=== PATIENT | female | born 1950 | race Caucasian/White ===

== ENCOUNTER 2020-02-16 11:43 | Outpatient (REF) | payer OTHER, SELFPAY ==
[2020-02-16 12:39] LABS: MANUAL DIFF FLAG NO
[2020-02-16 12:50] LABS: Basophils Absolute Auto 0.1 X10*3/uL (0.0-0.2); Eosinophils Absolute Auto 0.2 X10*3/uL (0.0-0.4); Eosinophils Percent Auto 4.3 % (0-4); Hematocrit 38.1 % (37-47); Hemoglobin 13.1 g/dl (12.0-16.0); Imm Gran Abs Auto 0.01 X10*3/uL (0.00-0.03); Imm Gran Pct Auto 0.2 % (0.0-0.4); Lymphocytes Absolute Auto 1.7 X10*3/uL (1.2-4.9); Lymphocytes Percent Auto 32.6 % (20-40); Mean Corpuscular HGB Conc 34.4 g/dl (31.0-35.0); Mean Corpuscular Hemoglobin 32.3 pg (27.0-33.0); Mean Corpuscular Volume 94.1 fL (80-98); Mean Platelet Volume 9.7 fL (9.4-12.3); Monocytes Absolute Auto 0.4 X10*3/uL (0.1-1.2); Neutrophils Absolute Auto 2.8 X10*3/uL (2.0-8.3); Neutrophils Percent Auto 54.9 % (45-73); Platelet Count 237 X10*3/uL (160-400); Red Blood Count 4.05 X10*6/uL (4.20-5.50); Red Cell Distribution Width 12.2 % (11.0-16.0); White Blood Count 5.1 X10*3/uL (4.8-10.8)
[2020-02-16 13:05] LABS: Alanine Aminotransferase 31 U/L (0-31); Albumin Level 4.2 g/dL (3.5-5.0); Alkaline Phosphatase 67 U/L (39-117); Anion Gap 10 (12-20); Aspartate Amino Transferase 26 U/L (5-31); Bilirubin Total 0.9 mg/dL (0.0-1.0); Blood Urea Nitrogen 12 mg/dL (9-16); Calcium 8.9 mg/dL (8.4-10.2); Carbon Dioxide 29 mmol/L (22-29); Chloride 105 mmol/L (96-108); Cholesterol 147 mg/dL; Estimated Glomerular Filt Rate > 60; Glucose Fasting 92 mg/dL (60-99); HDL Cholesterol 44 mg/dL; LDL Cholesterol Calculated 88 mg/dl; Potassium 4.4 mmol/l (3.3-5.1); Sodium 140 mmol/L (135-145); Total Protein 6.6 g/dL (6.5-8.0); Triglycerides 79 mg/dL
[2020-02-16 13:18] LABS: Glucose Urine UA NEG (NEG); Leukocyte Esterase Urine NEG (NEG); Nitrite Urine NEG (NEG); PH 6.5 (5.0-8.0); Urine Blood NEG (NEG); Urine Ketones NEG (NEG); Urine Protein NEG (NEG-TRACE)
[2020-02-16 13:19] LABS: Appearance Urine HAZY; Color Urine YELLOW
[2020-02-16 13:21] LABS: Free T4 (Free Thyroxine) 0.95 ng/dL (0.71-1.85); Thyroid Stimulating Hormone 0.08 uIU/mL (0.32-4.0)
[2020-02-16 13:35] LABS: Bacteria Urine 4+ /LPF; RBC Urine 0 /HPF (0); Squamous Epithelial Cell Urine 3+ /LPF; WBC Urine 0-2 /HPF (0-4)
[2020-02-16 13:46] LABS: Folate 3.8 ng/mL (> or = 4.0); Vitamin B12 820 pg/mL (200-900)
== END 2020-02-16 11:44 | disposition home or self-care (01) ==
LOC: HO.LAB 11:43
PROVIDERS: PCP Internal Medicine; Visit Provider Internal Medicine
DX: E78.00 Pure hypercholesterolemia, unspecified (principal); I10 Essential (primary) hypertension; R73.01 Impaired fasting glucose; E03.9 Hypothyroidism, unspecified; D51.0 Vitamin B12 deficiency anemia due to intrinsic factor deficiency
CPT/HCPCS: 36415; 80053; 80061; 81001; 82607; 82746; 84439; 84443; 85025

== ENCOUNTER 2020-06-12 09:28 | Outpatient (REF) | payer OTHER, SELFPAY ==
[2020-06-12 10:22] LABS: MANUAL DIFF FLAG NO
[2020-06-12 10:37] LABS: Basophils Absolute Auto 0.1 X10*3/uL (0.0-0.2); Basophils Percent Auto 1.2 % (0-2); Eosinophils Absolute Auto 0.3 X10*3/uL (0.0-0.4); Eosinophils Percent Auto 6.6 % (0-4); Hematocrit 39.6 % (37-47); Hemoglobin 13.8 g/dl (12.0-16.0); Imm Gran Abs Auto 0.01 X10*3/uL (0.00-0.03); Imm Gran Pct Auto 0.2 % (0.0-0.4); Lymphocytes Absolute Auto 1.6 X10*3/uL (1.2-4.9); Lymphocytes Percent Auto 30.7 % (20-40); Mean Corpuscular HGB Conc 34.8 g/dl (31.0-35.0); Mean Corpuscular Hemoglobin 32.4 pg (27.0-33.0); Mean Platelet Volume 9.8 fL (9.4-12.3); Monocytes Absolute Auto 0.3 X10*3/uL (0.1-1.2); Monocytes Percent Auto 6.6 % (2-11); Neutrophils Absolute Auto 2.8 X10*3/uL (2.0-8.3); Neutrophils Percent Auto 54.7 % (45-73); Platelet Count 225 X10*3/uL (160-400); Red Blood Count 4.26 X10*6/uL (4.20-5.50); Red Cell Distribution Width 12.5 % (11.0-16.0); White Blood Count 5.1 X10*3/uL (4.8-10.8)
[2020-06-12 11:12] LABS: Alanine Aminotransferase 24 U/L (0-31); Albumin Level 4.3 g/dL (3.5-5.0); Alkaline Phosphatase 74 U/L (39-117); Anion Gap 12 (12-20); Aspartate Amino Transferase 18 U/L (5-31); Bilirubin Total 0.6 mg/dL (0.0-1.0); Blood Urea Nitrogen 13 mg/dL (9-16); Calcium 9.2 mg/dL (8.4-10.2); Carbon Dioxide 29 mmol/L (22-29); Chloride 106 mmol/L (96-108); Cholesterol 153 mg/dL; Estimated Glomerular Filt Rate > 60; Glucose Fasting 95 mg/dL (60-99); HDL Cholesterol 41 mg/dL; LDL Cholesterol Calculated 94 mg/dl; Potassium 4.4 mmol/L (3.3-5.1); Sodium 143 mmol/L (135-145); Total Protein 6.7 g/dL (6.5-8.0); Triglycerides 93 mg/dL
[2020-06-12 11:24] LABS: Free T4 (Free Thyroxine) 1.07 ng/dL (0.71-1.85); Thyroid Stimulating Hormone 0.01 uIU/mL (0.32-4.0); Vitamin D 25-OH Total 26.9 ng/mL (>30)
[2020-06-12 11:54] LABS: Folate 3.6 ng/mL (> or = 4.0); Vitamin B12 584 pg/mL (200-900)
[2020-06-13 05:07] LABS: Triiodothyronine T3 Total 122 ng/dL (76-181)
== END 2020-06-12 09:29 | disposition home or self-care (01) ==
LOC: HO.LAB 09:28
PROVIDERS: PCP Internal Medicine; Visit Provider Internal Medicine
DX: I10 Essential (primary) hypertension (principal); D51.0 Vitamin B12 deficiency anemia due to intrinsic factor deficiency; E78.00 Pure hypercholesterolemia, unspecified; R73.01 Impaired fasting glucose; E03.9 Hypothyroidism, unspecified; E55.9 Vitamin D deficiency, unspecified
CPT/HCPCS: 36415; 80053; 80061; 82306; 82607; 82746; 84439; 84443; 84480; 85025

== ENCOUNTER 2020-10-15 08:33 | Outpatient (REF) | payer OTHER, SELFPAY ==
[2020-10-15 09:14] LABS: MANUAL DIFF FLAG NO
[2020-10-15 09:15] LABS: Basophils Absolute Auto 0.1 X10*3/uL (0.0-0.2); Basophils Percent Auto 0.9 % (0-2); Eosinophils Absolute Auto 0.3 X10*3/uL (0.0-0.4); Eosinophils Percent Auto 5.8 % (0-4); Hematocrit 38.9 % (37-47); Hemoglobin 13.8 g/dl (12.0-16.0); Imm Gran Abs Auto 0.01 X10*3/uL (0.00-0.03); Imm Gran Pct Auto 0.2 % (0.0-0.4); Lymphocytes Absolute Auto 1.7 X10*3/uL (1.2-4.9); Lymphocytes Percent Auto 28.7 % (20-40); Mean Corpuscular HGB Conc 35.5 g/dl (31.0-35.0); Mean Corpuscular Hemoglobin 32.5 pg (27.0-33.0); Mean Corpuscular Volume 91.7 fL (80-98); Mean Platelet Volume 9.4 fL (9.4-12.3); Monocytes Absolute Auto 0.4 X10*3/uL (0.1-1.2); Monocytes Percent Auto 6.3 % (2-11); Neutrophils Absolute Auto 3.4 X10*3/uL (2.0-8.3); Neutrophils Percent Auto 58.1 % (45-73); Platelet Count 212 X10*3/uL (160-400); Red Blood Count 4.24 X10*6/uL (4.20-5.50); Red Cell Distribution Width 12.4 % (11.0-16.0); White Blood Count 5.9 X10*3/uL (4.8-10.8)
[2020-10-15 09:28] LABS: Estimated Average Glucose 108 mg/dL; Hemoglobin A1c % 5.4 %
[2020-10-15 10:28] LABS: Glucose Urine UA NEG (NEG); Leukocyte Esterase Urine 1+ (NEG); Nitrite Urine NEG (NEG); UACC Culture Trigger YES; Urine Blood NEG (NEG); Urine Ketones NEG (NEG); Urine Protein NEG (NEG-TRACE)
[2020-10-15 10:37] LABS: Appearance Urine HAZY; Color Urine YELLOW
[2020-10-15 11:04] LABS: Alanine Aminotransferase 19 U/L (0-31); Albumin Level 4.3 g/dL (3.5-5.0); Alkaline Phosphatase 73 U/L (39-117); Anion Gap 12 (12-20); Aspartate Amino Transferase 18 U/L (5-31); Bilirubin Total 0.8 mg/dL (0.0-1.0); Blood Urea Nitrogen 9 mg/dL (9-16); Calcium 9.4 mg/dL (8.4-10.2); Carbon Dioxide 28 mmol/L (22-29); Chloride 106 mmol/L (96-108); Cholesterol 130 mg/dL; Estimated Glomerular Filt Rate > 60; Glucose Fasting 98 mg/dL (60-99); HDL Cholesterol 37 mg/dL; LDL Cholesterol Calculated 77 mg/dl; Potassium 4.1 mmol/L (3.3-5.1); Sodium 142 mmol/L (135-145); Total Protein 6.7 g/dL (6.5-8.0); Triglycerides 83 mg/dL
[2020-10-15 11:18] LABS: Bacteria Urine 2+ /LPF; RBC Urine 0-2 /HPF (0); Squamous Epithelial Cell Urine TRACE /LPF
[2020-10-15 11:19] LABS: Renal Epithelial Cells Urine TRACE /LPF
[2020-10-15 11:28] LABS: Free T4 (Free Thyroxine) 1.28 ng/dL (0.71-1.85); Thyroid Stimulating Hormone 0.01 uIU/mL (0.32-4.0); Vitamin D 25-OH Total 33.5 ng/mL (>30)
== END 2020-10-15 08:34 | disposition home or self-care (01) ==
LOC: HO.LAB 08:33
PROVIDERS: PCP Internal Medicine; Visit Provider Internal Medicine
DX: I10 Essential (primary) hypertension (principal); E78.00 Pure hypercholesterolemia, unspecified; E03.9 Hypothyroidism, unspecified; E11.9 Type 2 diabetes mellitus without complications; E55.9 Vitamin D deficiency, unspecified
CPT/HCPCS: 36415; 80053; 80061; 81001; 82306; 83036; 84439; 84443; 85025; 87086

== ENCOUNTER 2021-02-14 10:10 | Outpatient (REF) | payer OTHER, SELFPAY ==
[2021-02-14 10:23] LABS: MANUAL DIFF FLAG NO
[2021-02-14 10:42] LABS: Basophils Percent Auto 0.8 % (0-2); Eosinophils Absolute Auto 0.2 X10*3/uL (0.0-0.4); Eosinophils Percent Auto 4.5 % (0-4); Hematocrit 37.7 % (37.0-47.0); Imm Gran Abs Auto 0.01 X10*3/uL (0.00-0.03); Imm Gran Pct Auto 0.2 % (0.0-0.4); Lymphocytes Absolute Auto 1.6 X10*3/uL (1.2-4.9); Lymphocytes Percent Auto 32.3 % (20-40); Mean Corpuscular HGB Conc 34.5 g/dl (31.0-35.0); Mean Corpuscular Hemoglobin 32.2 pg (27.0-33.0); Mean Corpuscular Volume 93.3 fL (80.0-98.0); Mean Platelet Volume 9.6 fL (9.4-12.3); Monocytes Absolute Auto 0.3 X10*3/uL (0.1-1.2); Monocytes Percent Auto 6.5 % (2-11); Neutrophils Absolute Auto 2.8 x10*3/uL (2.0-8.3); Neutrophils Percent Auto 55.7 % (45-73); Platelet Count 198 X10*3/uL (160-400); Red Blood Count 4.04 X10*6/uL (4.20-5.50); Red Cell Distribution Width 12.4 % (11.0-16.0); White Blood Count 5.1 X10*3/uL (4.8-10.8)
[2021-02-14 10:51] LABS: Estimated Average Glucose 105 mg/dL; Hemoglobin A1C 116.7372 umol/L; Hemoglobin A1c % 5.3 %
[2021-02-14 11:18] LABS: Alanine Aminotransferase 28 U/L (0-31); Albumin Level 4.2 g/dL (3.5-5.0); Alkaline Phosphatase 72 U/L (39-117); Anion Gap 10 (12-20); Aspartate Amino Transferase 24 U/L (5-31); Bilirubin Total 0.6 mg/dL (0.0-1.0); Blood Urea Nitrogen 12 mg/dL (9-16); Calcium 9.2 mg/dL (8.4-10.2); Carbon Dioxide 28 mmol/L (22-29); Chloride 109 mmol/L (96-108); Cholesterol 132 mg/dL; Estimated Glomerular Filt Rate > 60; Glucose Fasting 99 mg/dL (60-99); HDL Cholesterol 38 mg/dL; LDL Cholesterol Calculated 83 mg/dl; Potassium 4.2 mmol/L (3.3-5.1); Sodium 143 mmol/L (135-145); Total Protein 6.5 g/dL (6.5-8.0); Triglycerides 59 mg/dL
[2021-02-14 11:38] LABS: Free T4 (Free Thyroxine) 1.04 ng/dL (0.71-1.85); Thyroid Stimulating Hormone 0.01 uIU/mL (0.32-4.0); Vitamin D 25-OH Total 34.3 ng/mL (>30)
[2021-02-14 12:21] LABS: Folate 5.6 ng/mL (> or = 4.0)
[2021-02-14 14:10] LABS: Vitamin B12 772 pg/mL (200-900)
[2021-02-14 14:42] LABS: Appearance Urine CLEAR; Color Urine YELLOW; Glucose Urine UA NEG (NEG); Leukocyte Esterase Urine 1+ (NEG); Nitrite Urine NEG (NEG); Specific Gravity - Urine 1.015 (1.005-1.025); UACC Culture Trigger YES; Urine Blood NEG (NEG); Urine Ketones NEG (NEG); Urine Protein NEG (NEG-TRACE)
[2021-02-14 14:50] LABS: RBC Urine 0 /HPF (0); Squamous Epithelial Cell Urine 1+ /LPF
== END 2021-02-14 10:11 | disposition home or self-care (01) ==
LOC: HO.LAB 10:10
PROVIDERS: PCP Internal Medicine; Visit Provider Internal Medicine
DX: E03.9 Hypothyroidism, unspecified (principal); E55.9 Vitamin D deficiency, unspecified; I10 Essential (primary) hypertension; R73.01 Impaired fasting glucose; D51.0 Vitamin B12 deficiency anemia due to intrinsic factor deficiency; E78.00 Pure hypercholesterolemia, unspecified
CPT/HCPCS: 36415; 80053; 80061; 81001; 81003; 82306; 82607; 82746; 83036; 84439; 84443; 85025; 87086

== ENCOUNTER 2021-03-22 07:50 | Outpatient (REF) | payer OTHER, SELFPAY ==
--- NOTE | ~2021-03-22 | MM_ITS ---
EXAMINATION: MM SCREENING DIGITAL BREAST TOMOSYNTHESIS, BILATERAL CLINICAL INFORMATION: Screening. Asymptomatic. The lifetime risk of breast cancer based on the Tyrer-Cuzick Model is 6%. COMPARISON: Mammography: 01/28/2019, 12/24/2015, 08/02/2014 TECHNIQUE: Digital breast tomosynthesis is performed in both the craniocaudal and mediolateral oblique views along with computer-aided detection (CAD). Synthesized 2D images are generated from the tomosynthesis. FINDINGS: There are scattered areas of fibroglandular density (ACR BI-RADS breast composition Category b). There are no significant masses, abnormal calcifications, or other abnormalities. Parenchymal pattern is similar to prior studies. There is no developing density or architectural abnormality. The axilla and skin contours are unremarkable. No significant changes. MM/MM tomosynthesis screening BI IMPRESSION: No mammographic evidence of malignancy. ASSESSMENT: BI-RADS 1: Negative RECOMMENDATION: Routine annual mammography screening. This patient's information was entered into a reminder system with a target due date for their next mammogram.
--- NOTE | ~2021-03-22 | MM_ITS ---
EXAMINATION: BONE DENSITOMETRY CLINICAL INDICATION: Menopause. COMPARISON: Previous BD dated 11/24/2017 and baseline BD dated 04/05/2009. TECHNIQUE: Using a Siriona DXA System (software version: 13.1) manufactured by [employer], dual-energy x-ray absorptiometry was performed of the lumbar spine and left hip. The images are of good technical quality. Summary results are attached. FINDINGS: AP SPINE L1-L4: Current: BMD 0.897 g/cm2, Z-score -0.5, T-score -2.4, osteopenia, 7.9% decrease from previous, 8.2% decrease from baseline (<5% change is not significant). Prior: BMD 0.974 g/cm2. Baseline: BMD 0.977 g/cm2. LEFT FEMUR, NECK: Current: BMD 0.720 g/cm2, Z-score -0.5, T-score -2.3, osteopenia. Prior: BMD 0.749 g/cm2. Baseline: BMD 0.751 g/cm2. LEFT FEMUR, TOTAL: Current: BMD 0.776 g/cm2, Z-score -0.3, T-score -1.8, osteopenia, 2.3% decrease from previous, 9.3% decrease from baseline (<5% change is not significant). Prior: BMD 0.794 g/cm2. Baseline: BMD 0.856 g/cm2. IDENTIFIED RISK FACTORS: Menopause. HISTORY OF FRACTURE: None listed. MEDICATIONS: Vitamin D. MM/XR DEXA axial skeleton IMPRESSION: 1. DIAGNOSIS: Osteopenia based on the lowest T-score value of -2.4 in the lumbar spine applying World Health Organization criteria. 2. 10-YEAR FRACTURE RISK PREDICTION, FRAX: Major osteoporotic fracture (clinical spine, forearm, hip or shoulder) 12.8%. Hip fracture 2.9%. 3. Treatment Recommendations: NOF guidelines recommend consideration for treatment in postmenopausal women and men age 50 and older presenting with the following: -A hip or vertebral (clinical or morphometric) fracture. -T-score less than or equal to -2.5 at the femoral neck or spine after appropriate evaluation to exclude secondary causes. -Low bone mass at the hip or spine and a 10-year fracture probability by FRAX of greater than or equal to 3% for hip fracture or greater than or equal to 20% for major osteoporotic fracture based on the [place] adapted WHO algorithm. 4. Other Recommendations: All treatment decisions require clinical judgment and consideration of individual patient factors, including patient preferences, comorbidities, previous drug use, risk factors not captured in the FRAX model (e.g. frailty, falls, vitamin D deficiency, increased bone turnover, interval significant decline in bone density) and possible under or overestimation of fracture risk by FRAX. Additional medical evaluation for secondary cause of low bone mineral density may be appropriate. FUTURE SCAN RECOMMENDATION: People with diagnosed cases of osteoporosis or at high risk for fracture should have regular bone mineral density tests. For patients eligible for Medicare, routine testing is allowed once every 2 years. The testing frequency can be increased to one year for patients who have rapidly progressing disease, those who are receiving or discontinuing medical therapy to restore bone mass, or have additional risk factors.
== END 2021-03-22 07:51 | disposition home or self-care (01) ==
LOC: HO.MAMMO 07:50
PROVIDERS: PCP Internal Medicine; Visit Provider Internal Medicine
DX: Z12.31 Encounter for screening mammogram for malignant neoplasm of breast (principal); Z13.820 Encounter for screening for osteoporosis; M81.0 Age-related osteoporosis without current pathological fracture; Z78.0 Asymptomatic menopausal state; Z79.899 Other long term (current) drug therapy
CPT/HCPCS: 77063; 77067; 77080

== ENCOUNTER 2021-06-14 08:24 | Outpatient (REF) | payer OTHER, SELFPAY ==
[2021-06-14 08:33] LABS: MANUAL DIFF FLAG NO
[2021-06-14 09:18] LABS: Basophils Absolute Auto 0.1 X10*3/uL (0.0-0.2); Eosinophils Absolute Auto 0.3 X10*3/uL (0.0-0.4); Eosinophils Percent Auto 5.4 % (0-4); Hematocrit 39.2 % (37.0-47.0); Hemoglobin 13.5 g/dl (12.0-16.0); Imm Gran Abs Auto 0.01 X10*3/uL (0.00-0.03); Imm Gran Pct Auto 0.2 % (0.0-0.4); Lymphocytes Absolute Auto 2.1 X10*3/uL (1.2-4.9); Lymphocytes Percent Auto 34.9 % (20-40); Mean Corpuscular HGB Conc 34.4 g/dl (31.0-35.0); Mean Corpuscular Volume 92.9 fL (80.0-98.0); Mean Platelet Volume 9.9 fL (9.4-12.3); Monocytes Absolute Auto 0.5 X10*3/uL (0.1-1.2); Monocytes Percent Auto 7.6 % (2-11); Neutrophils Percent Auto 50.9 % (45-73); Platelet Count 218 X10*3/uL (160-400); Red Blood Count 4.22 X10*6/uL (4.20-5.50); Red Cell Distribution Width 12.3 % (11.0-16.0)
[2021-06-14 09:45] LABS: Alanine Aminotransferase 32 U/L (0-31); Albumin Level 4.2 g/dL (3.5-5.0); Alkaline Phosphatase 81 U/L (39-117); Anion Gap 11 (12-20); Aspartate Amino Transferase 21 U/L (5-31); Bilirubin Total 0.5 mg/dL (0.0-1.0); Blood Urea Nitrogen 13 mg/dL (9-16); Calcium 9.5 mg/dL (8.4-10.2); Carbon Dioxide 27 mmol/L (22-29); Chloride 107 mmol/L (96-108); Cholesterol 138 mg/dL; Estimated Glomerular Filt Rate > 60; Glucose Fasting 113 mg/dL (60-99); HDL Cholesterol 38 mg/dL; LDL Cholesterol Calculated 85 mg/dl; Potassium 4.1 mmol/L (3.3-5.1); Sodium 141 mmol/L (135-145); Total Protein 6.7 g/dL (6.5-8.0); Triglycerides 79 mg/dL
[2021-06-14 09:48] LABS: Appearance Urine HAZY; Color Urine YELLOW; Glucose Urine UA NEG (NEG); Leukocyte Esterase Urine NEG (NEG); Nitrite Urine NEG (NEG); Specific Gravity - Urine >= 1.030 (1.005-1.025); Urine Blood NEG (NEG); Urine Ketones NEG (NEG); Urine Protein NEG (NEG-TRACE)
[2021-06-14 09:58] LABS: Thyroid Stimulating Hormone 0.01 uIU/mL (0.32-4.0); Vitamin D 25-OH Total 33.8 ng/mL (>30)
== END 2021-06-14 08:25 | disposition home or self-care (01) ==
LOC: HO.LAB 08:24
PROVIDERS: PCP Internal Medicine; Visit Provider Internal Medicine
DX: I10 Essential (primary) hypertension (principal); E78.00 Pure hypercholesterolemia, unspecified; E03.9 Hypothyroidism, unspecified; E55.9 Vitamin D deficiency, unspecified
CPT/HCPCS: 36415; 80053; 80061; 81003; 82306; 84439; 84443; 85025

== ENCOUNTER 2021-06-18 10:19 | Outpatient (REF) | payer OTHER, SELFPAY ==
--- NOTE | ~2021-06-18 | XR_ITS ---
EXAMINATION: XR FOOT, RIGHT CLINICAL INFORMATION: Right foot pain. COMPARISON: None TECHNIQUE: AP, lateral, and oblique views of the right foot. FINDINGS: There is pes cavum. A plantar calcaneal spur is present. No significant degenerative changes are seen. No fractures. XR/XR foot RT min 3V IMPRESSION: Pes cavum. Small plantar calcaneal spur.
== END 2021-06-18 10:20 | disposition home or self-care (01) ==
LOC: HO.XRAY 10:19
PROVIDERS: PCP Internal Medicine; Visit Provider Internal Medicine
DX: M79.671 Pain in right foot (principal)
CPT/HCPCS: 73630

== ENCOUNTER 2021-10-29 09:22 | Outpatient (REF) | payer OTHER, SELFPAY ==
[2021-10-29 09:41] LABS: MANUAL DIFF FLAG NO
[2021-10-29 09:51] LABS: Basophils Absolute Auto 0.1 X10*3/uL (0.0-0.2); Basophils Percent Auto 1.2 % (0-2); Eosinophils Absolute Auto 0.3 X10*3/uL (0.0-0.4); Eosinophils Percent Auto 6.8 % (0-4); Hematocrit 38.3 % (37.0-47.0); Imm Gran Abs Auto 0.01 X10*3/uL (0.00-0.03); Imm Gran Pct Auto 0.2 % (0.0-0.4); Lymphocytes Absolute Auto 1.6 X10*3/uL (1.2-4.9); Lymphocytes Percent Auto 31.6 % (20-40); Mean Corpuscular HGB Conc 33.9 g/dl (31.0-35.0); Mean Corpuscular Hemoglobin 32.1 pg (27.0-33.0); Mean Corpuscular Volume 94.6 fL (80.0-98.0); Mean Platelet Volume 9.8 fL (9.4-12.3); Monocytes Absolute Auto 0.3 X10*3/uL (0.1-1.2); Monocytes Percent Auto 6.4 % (2-11); Neutrophils Absolute Auto 2.7 x10*3/uL (2.0-8.3); Neutrophils Percent Auto 53.8 % (45-73); Platelet Count 202 X10*3/uL (160-400); Red Blood Count 4.05 X10*6/uL (4.20-5.50); Red Cell Distribution Width 12.7 % (11.0-16.0)
[2021-10-29 10:16] LABS: Alanine Aminotransferase 31 U/L (0-31); Albumin Level 4.1 g/dL (3.5-5.0); Alkaline Phosphatase 77 U/L (39-117); Anion Gap 12 (12-20); Aspartate Amino Transferase 27 U/L (5-31); Bilirubin Total 0.6 mg/dL (0.0-1.0); Blood Urea Nitrogen 10 mg/dL (9-16); Calcium 9.1 mg/dL (8.4-10.2); Carbon Dioxide 29 mmol/L (22-29); Chloride 108 mmol/L (96-108); Cholesterol 171 mg/dL; Estimated Glomerular Filt Rate > 60; Glucose Fasting 95 mg/dL (60-99); HDL Cholesterol 47 mg/dL; LDL Cholesterol Calculated 101 mg/dl; Potassium 4.4 mmol/L (3.3-5.1); Sodium 145 mmol/L (135-145); Total Protein 6.2 g/dL (6.5-8.0); Triglycerides 118 mg/dL
[2021-10-29 10:34] LABS: Appearance Urine Clear; Color Urine Yellow; Glucose Urine UA Negative (Negative); Leukocyte Esterase Urine Trace (Negative); Nitrite Urine Negative (Negative); PH 6.5 (5.0-8.0); Urine Blood Negative (Negative); Urine Ketones Negative (Negative); Urine Protein Negative (Neg-Trace)
[2021-10-29 10:39] LABS: Free T4 (Free Thyroxine) 1.14 ng/dL (0.71-1.85); Thyroid Stimulating Hormone 0.01 uIU/mL (0.32-4.0); Vitamin D 25-OH Total 37.3 ng/mL (>30)
[2021-10-29 12:14] LABS: Bacteria Urine None Seen (None Seen); Hyaline Casts Urine 0-2 /LPF; RBC Urine 0-2 /HPF (0-2); WBC Urine 0-5 /HPF (0-5)
== END 2021-10-29 09:23 | disposition home or self-care (01) ==
LOC: HO.LAB 09:22
PROVIDERS: PCP Internal Medicine; Visit Provider Internal Medicine
DX: E03.9 Hypothyroidism, unspecified (principal); I10 Essential (primary) hypertension; E78.00 Pure hypercholesterolemia, unspecified; E55.9 Vitamin D deficiency, unspecified
CPT/HCPCS: 36415; 80053; 80061; 81001; 82306; 84439; 84443; 85025

== ENCOUNTER 2022-03-11 07:46 | Outpatient (REF) | payer OTHER, SELFPAY ==
[2022-03-11 07:58] LABS: MANUAL DIFF FLAG NO
[2022-03-11 08:12] LABS: Basophils Absolute Auto 0.1 X10*3/uL (0.0-0.2); Eosinophils Absolute Auto 0.4 X10*3/uL (0.0-0.4); Eosinophils Percent Auto 5.1 % (0-4); Hemoglobin 14.6 g/dl (12.0-16.0); Imm Gran Abs Auto 0.01 X10*3/uL (0.00-0.03); Imm Gran Pct Auto 0.1 % (0.0-0.4); Lymphocytes Absolute Auto 2.8 X10*3/uL (1.2-4.9); Lymphocytes Percent Auto 36.2 % (20-40); Mean Corpuscular HGB Conc 34.8 g/dl (31.0-35.0); Mean Corpuscular Hemoglobin 32.2 pg (27.0-33.0); Mean Corpuscular Volume 92.7 fL (80.0-98.0); Mean Platelet Volume 9.5 fL (9.4-12.3); Monocytes Absolute Auto 0.5 X10*3/uL (0.1-1.2); Monocytes Percent Auto 5.8 % (2-11); Neutrophils Percent Auto 51.8 % (45-73); Platelet Count 258 X10*3/uL (160-400); Red Blood Count 4.53 X10*6/uL (4.20-5.50); Red Cell Distribution Width 12.2 % (11.0-16.0); White Blood Count 7.8 X10*3/uL (4.8-10.8)
[2022-03-11 09:00] LABS: Albumin Level 4.3 g/dL (3.5-5.0); Anion Gap 10 (12-20); Calcium 9.4 mg/dL (8.4-10.2); Carbon Dioxide 30 mmol/L (22-29); Chloride 104 mmol/L (96-108); Cholesterol 146 mg/dL; Free T4 (Free Thyroxine) 1.17 ng/dL (0.71-1.85); Glucose Fasting 99 mg/dL (60-99); Potassium 4.3 mmol/L (3.3-5.1); Sodium 140 mmol/L (135-145); Thyroid Stimulating Hormone 0.04 uIU/mL (0.32-4.0); Total Protein 6.5 g/dL (6.5-8.0); Triglycerides 86 mg/dL; Vitamin D 25-OH Total 34.7 ng/mL (>30)
[2022-03-11 09:13] LABS: Alanine Aminotransferase 27 U/L (0-31); Alkaline Phosphatase 76 U/L (39-117); Aspartate Amino Transferase 20 U/L (5-31); Bilirubin Total 0.4 mg/dL (0.0-1.0); Blood Urea Nitrogen 11 mg/dL (9-16); Estimated Glomerular Filt Rate > 60; HDL Cholesterol 44 mg/dL; LDL Cholesterol Calculated 85 mg/dl
[2022-03-11 09:16] LABS: Appearance Urine Clear; Color Urine Yellow; Glucose Urine UA Negative (Negative); Leukocyte Esterase Urine Negative (Negative); Nitrite Urine Negative (Negative); PH 6.5 (5.0-9.0); Urine Blood Negative (Negative); Urine Ketones Negative (Negative); Urine Protein Negative (Neg-Trace)
[2022-03-11 14:16] LABS: Folate 6.7 ng/mL (> or = 4.0); Vitamin B12 817 pg/mL (200-900)
[2022-03-13 13:32] LABS: Thyroid Peroxidase Antibodies 4 IU/mL (<9)
== END 2022-03-11 07:47 | disposition home or self-care (01) ==
LOC: HO.LAB 07:46
PROVIDERS: PCP Internal Medicine; Visit Provider Internal Medicine
DX: E53.8 Deficiency of other specified B group vitamins (principal); R79.89 Other specified abnormal findings of blood chemistry; E55.9 Vitamin D deficiency, unspecified; E03.9 Hypothyroidism, unspecified; E78.00 Pure hypercholesterolemia, unspecified; I10 Essential (primary) hypertension
CPT/HCPCS: 36415; 80053; 80061; 81003; 82306; 82607; 82746; 84439; 84443; 85025; 86376

== ENCOUNTER 2022-03-26 07:49 | Outpatient (REF) | payer OTHER, SELFPAY ==
--- NOTE | ~2022-03-26 | MM_ITS ---
EXAMINATION: MM SCREENING DIGITAL BREAST TOMOSYNTHESIS, BILATERAL CLINICAL INFORMATION: Screening. Asymptomatic. The lifetime risk of breast cancer based on the Tyrer-Cuzick Model is 6%. COMPARISON: Mammography: 03/22/2021, 03/30/2018, 12/24/2015 TECHNIQUE: Digital breast tomosynthesis is performed in both the craniocaudal and mediolateral oblique views along with computer-aided detection (CAD). Synthesized 2D images are generated from the tomosynthesis. FINDINGS: There are scattered areas of fibroglandular density (ACR BI-RADS breast composition Category b). There are no significant masses, abnormal calcifications, or other abnormalities. There is no developing density or architectural abnormality. The axilla and skin contours are unremarkable. Parenchymal pattern is similar to prior studies. MM/MM tomosynthesis screening BI IMPRESSION: No mammographic evidence of malignancy. ASSESSMENT: BI-RADS 1: Negative RECOMMENDATION: Routine annual mammography screening. This patient's information was entered into a reminder system with a target due date for their next mammogram.
== END 2022-03-26 07:50 | disposition home or self-care (01) ==
LOC: HO.MAMMO 07:49
PROVIDERS: PCP Internal Medicine; Visit Provider Internal Medicine
DX: Z12.31 Encounter for screening mammogram for malignant neoplasm of breast (principal)
CPT/HCPCS: 77063; 77067

== ENCOUNTER 2022-07-08 08:13 | Outpatient (REF) | payer OTHER, SELFPAY ==
[2022-07-08 11:26] LABS: MANUAL DIFF FLAG NO
[2022-07-08 11:39] LABS: Appearance Urine Cloudy; Color Urine Yellow; Glucose Urine UA Negative (Negative); Leukocyte Esterase Urine Trace (Negative); Nitrite Urine Negative (Negative); Specific Gravity - Urine <= 1.005 (1.005-1.025); UMIC TRIGGER UACC YES; Urine Blood Negative (Negative); Urine Ketones Negative (Negative); Urine Protein Negative (Neg-Trace)
[2022-07-08 11:47] LABS: Bacteria Urine 4+ (None Seen); Hyaline Casts Urine 0-2 /LPF (0-2); RBC Urine 0-2 /HPF (0-2); WBC Urine 0-5 /HPF (0-5)
[2022-07-08 11:58] LABS: Basophils Absolute Auto 0.1 X10*3/uL (0.0-0.2); Basophils Percent Auto 1.1 % (0-2); Eosinophils Absolute Auto 0.3 X10*3/uL (0.0-0.4); Hematocrit 39.4 % (37.0-47.0); Hemoglobin 13.4 g/dl (12.0-16.0); Imm Gran Abs Auto 0.01 X10*3/uL (0.00-0.03); Imm Gran Pct Auto 0.2 % (0.0-0.4); Lymphocytes Absolute Auto 1.9 X10*3/uL (1.2-4.9); Lymphocytes Percent Auto 36.1 % (20-40); Mean Corpuscular Hemoglobin 31.6 pg (27.0-33.0); Mean Corpuscular Volume 92.9 fL (80.0-98.0); Monocytes Absolute Auto 0.4 X10*3/uL (0.1-1.2); Monocytes Percent Auto 6.9 % (2-11); Neutrophils Absolute Auto 2.7 x10*3/uL (2.0-8.3); Neutrophils Percent Auto 50.7 % (45-73); Platelet Count 234 X10*3/uL (160-400); Red Blood Count 4.24 X10*6/uL (4.20-5.50); Red Cell Distribution Width 12.5 % (11.0-16.0); White Blood Count 5.4 X10*3/uL (4.8-10.8)
[2022-07-08 12:04] LABS: Estimated Average Glucose 103 mg/dL; Hemoglobin A1c % 5.2 %
[2022-07-08 13:20] LABS: Alanine Aminotransferase 18 U/L (0-31); Albumin Level 4.2 g/dL (3.5-5.0); Alkaline Phosphatase 86 U/L (39-117); Anion Gap 10 (12-20); Aspartate Amino Transferase 20 U/L (5-31); Bilirubin Total 0.7 mg/dL (0.0-1.0); Blood Urea Nitrogen 7 mg/dL (9-16); Calcium 9.4 mg/dL (8.4-10.2); Carbon Dioxide 31 mmol/L (22-29); Chloride 105 mmol/L (96-108); Cholesterol 158 mg/dL; Estimated Glomerular Filt Rate > 60; Glucose Fasting 89 mg/dL (60-99); HDL Cholesterol 37 mg/dL; LDL Cholesterol Calculated 99 mg/dl; Potassium 4.1 mmol/L (3.3-5.1); Sodium 142 mmol/L (135-145); Total Protein 6.3 g/dL (6.5-8.0); Triglycerides 112 mg/dL
[2022-07-08 13:50] LABS: Folate 3.9 ng/mL (> or = 4.0); Free T4 (Free Thyroxine) 1.21 ng/dL (0.71-1.85); Thyroid Stimulating Hormone 0.02 uIU/mL (0.32-4.0); Vitamin B12 855 pg/mL (200-900); Vitamin D 25-OH Total 37.2 ng/mL (>30)
== END 2022-07-08 08:14 | disposition home or self-care (01) ==
LOC: HO.HMGCLDS 08:13
PROVIDERS: PCP Internal Medicine; Visit Provider Internal Medicine
DX: E03.9 Hypothyroidism, unspecified (principal); E55.9 Vitamin D deficiency, unspecified; D51.0 Vitamin B12 deficiency anemia due to intrinsic factor deficiency; E78.00 Pure hypercholesterolemia, unspecified; R73.01 Impaired fasting glucose; I10 Essential (primary) hypertension
CPT/HCPCS: 36415; 80053; 80061; 81001; 82306; 82607; 82746; 83036; 84439; 84443; 85025

== ENCOUNTER 2022-11-13 08:38 | Outpatient (REF) | payer OTHER, SELFPAY ==
[2022-11-13 11:32] LABS: MANUAL DIFF FLAG NO
[2022-11-13 11:42] LABS: Basophils Absolute Auto 0.1 X10*3/uL (0.0-0.2); Basophils Percent Auto 1.1 % (0-2); Eosinophils Absolute Auto 0.3 X10*3/uL (0.0-0.4); Eosinophils Percent Auto 5.3 % (0-4); Hemoglobin 13.4 g/dl (12.0-16.0); Imm Gran Abs Auto 0.01 X10*3/uL (0.00-0.03); Imm Gran Pct Auto 0.2 % (0.0-0.4); Lymphocytes Absolute Auto 1.8 X10*3/uL (1.2-4.9); Lymphocytes Percent Auto 31.9 % (20-40); Mean Corpuscular HGB Conc 34.4 g/dl (31.0-35.0); Mean Corpuscular Volume 93.1 fL (80.0-98.0); Mean Platelet Volume 10.3 fL (9.4-12.3); Monocytes Absolute Auto 0.3 X10*3/uL (0.1-1.2); Monocytes Percent Auto 5.7 % (2-11); Neutrophils Absolute Auto 3.1 x10*3/uL (2.0-8.3); Neutrophils Percent Auto 55.8 % (45-73); Platelet Count 218 X10*3/uL (160-400); Red Blood Count 4.19 X10*6/uL (4.20-5.50); Red Cell Distribution Width 12.6 % (11.0-16.0); White Blood Count 5.6 X10*3/uL (4.8-10.8)
[2022-11-13 12:06] LABS: Appearance Urine Clear; Color Urine Yellow; Glucose Urine UA Negative (Negative); Leukocyte Esterase Urine Negative (Negative); Nitrite Urine Negative (Negative); PH 6.5 (5.0-9.0); Urine Blood Negative (Negative); Urine Ketones Negative (Negative); Urine Protein Negative (Neg-Trace)
[2022-11-13 12:14] LABS: Alanine Aminotransferase 21 U/L (0-31); Albumin Level 4.2 g/dL (3.5-5.0); Alkaline Phosphatase 75 U/L (39-117); Anion Gap 10 (12-20); Aspartate Amino Transferase 22 U/L (5-31); Bilirubin Total 0.6 mg/dL (0.0-1.0); Blood Urea Nitrogen 11 mg/dL (9-16); Calcium 9.5 mg/dL (8.4-10.2); Carbon Dioxide 27 mmol/L (22-29); Chloride 107 mmol/L (96-108); Cholesterol 128 mg/dL (<200); Estimated Glomerular Filt Rate > 60; Glucose Fasting 98 mg/dL (60-99); HDL Cholesterol 37 mg/dL (>40); LDL Cholesterol Calculated 72 mg/dL (<100); Potassium 4.1 mmol/L (3.3-5.1); Sodium 140 mmol/L (135-145); Total Protein 6.8 g/dL (6.5-8.0); Triglycerides 97 mg/dL (<150)
[2022-11-13 12:33] LABS: Free T4 (Free Thyroxine) 1.17 ng/dL (0.71-1.85); Thyroid Stimulating Hormone 0.01 uIU/mL (0.32-4.0); Vitamin D 25-OH Total 41.9 ng/mL (>30)
== END 2022-11-13 08:39 | disposition home or self-care (01) ==
LOC: HO.HMGCLDS 08:38
PROVIDERS: PCP Internal Medicine; Visit Provider Internal Medicine
DX: E03.9 Hypothyroidism, unspecified (principal); I10 Essential (primary) hypertension; R30.0 Dysuria; E78.00 Pure hypercholesterolemia, unspecified; E55.9 Vitamin D deficiency, unspecified
CPT/HCPCS: 36415; 80053; 80061; 81003; 82306; 84439; 84443; 85025

== ENCOUNTER 2022-11-18 09:58 | Outpatient (AMB) | payer OTHER, SELFPAY ==
[2022-11-18 10:02] VITALS: BP 124/80; PULSE 71; O2SAT 98; BMI 24.0
--- NOTE | 2022-11-18 10:02 | MHC.PC.OV ---
Vital Signs 11/18/22 10:02 Height 5 ft 3 in Weight 135 lb 4 oz BMI 24.0 BP 124/80 Blood Pressure Location Lt brachial Position Sitting Pulse 71 Pulse Source Pulse Oximeter Pulse Oximetry (%) 98 Oxygen Delivery Method Room Air Intake Visit Reasons: HTN, hyperlipidemia, hypothyroidism Classification Officer Required: No Accompanied by: Self / Same As Patient Allergies No Known Allergies Allergy (Verified 11/18/22 10:44) Medication List - Last Reconciled 11/18/22 by Anurag Ren MD cholecalciferol (vitamin D3) 50 mcg PO DAILY 90 days levothyroxine 88 mcg PO DAILY 90 days lisinopril 20 mg PO DAILY 90 days mecobalamin (vitamin B12) 1,000 mcg sublingual DAILY 90 days simvastatin 40 mg PO BEDTIME 90 days Tobacco use date assessed: 11/18/22 Fall risk assessment: No Falls in past year Last assessed Fall Risk: 11/18/22 Dental Screening Dental Screen Date: 11/18/22 Did you have a dental visit in the last 12 months?: No Did you have a dental problem in the last 6 months where you did not have access to dental care?: No Was dental information given to patient?: No HPI HTN, hyperlipidemia, hypothyroidism HPI Details Patient comes in today for her follow up visit States that she feels okay - has been kept busy lately taking care of her who just had knee replacement surgery a couple of weeks ago She denies any headaches or dizziness Denies any chest pains, no SOB No nausea/vomiting, no abdominal pain No change in bowel habits noted Needs a few of her Rx refilled Had her follow up labs done last week - to discuss her results [facility] Medical History Acquired hypothyroidism Allergic rhinitis Benign essential hypertension Impaired fasting glucose Osteoporosis Pernicious anemia Pure hypercholesterolemia Vitamin D deficiency Surgical History History of excision of mass Family History Father No problems noted. Mother No problems noted. Social History Housing: House Alcohol intake: current Alcohol intake frequency: holidays/special occasions only Patient Tobacco Use Status: Current everyday Tobacco user Cigarettes Per Day: 6 e-Cigarette/Vaping Use: Never Used Second Hand Smoke Exposure: Yes service: No Current occupational status: retired Cognitive needs: No Hearing needs: No Vision needs: No Questionnaire PHQ-9 Over the last 2 weeks, how often have you been bothered by any of the following problems? 1. Little interest or pleasure in doing things: not at all 2. Feeling down, depressed, or hopeless: not at all 3. Trouble falling or staying asleep, or sleeping too much: not at all 4. Feeling tired or having little energy: not at all 5. Poor appetite or overeating: not at all 6. Feeling bad about yourself - or that you are a failure or have let yourself or your family down: not at all 7. Trouble concentrating on things, such as reading the newspaper or watching television: not at all 8. Moving or speaking so slowly that other people could have noticed. Or the opposite - being so fidgety or restless that you have been moving around a lot more than usual: not at all 9. Thoughts that you would be better off or of hurting yourself in some way: not at all Total score: 0 Depression Screening Interpretation: Negative 72562 - PHQ-9 Billing: Yes Source: Developed by Drs. Quintin Amato, Alexandra Gusman, Wayne Eng and colleagues, with an educational elisa from [employer]. Thrive Questionnaire Date Thrive assessed: 11/18/22 I am a: Patient What is your living situation today?: I have a steady place to live Within the past 12 months, did the food you bought not last and you didn't have the money to get more?: Never true Within the past 12 months, did you worry whether your food would run out before you got money to buy more?: Never true Do you have trouble paying for medicines?: No Do you have trouble getting transportation to medical appointments?: No Do you have trouble paying your heating and electricity bill?: No Do you have trouble taking care of your child, family member or friend?: No Do you have trouble with day-to-day activities such as bathing, preparing meals, shopping, managing finances, etc.?: No Are you currently unemployed and looking for a job?: No Are you interested in more education?: No Please select the resources that you would like help with: None Currently or been in a relationship where the following occur: no concerns reported AUDIT C Alcohol Use Questionnaire (AUDIT-C) 1. How often do you have a drink containing alcohol?: Monthly or less 2. How many drinks containing alcohol do you have on a typical day when you are drinking?: 1 or 2 3. How often do you have six or more drinks on one occasion?: Never Total Score: 1 Score Reviewed/Action Taken: Yes JOHNIE-7 AMB Questionnaire JOHNIE-7 Date JOHNIE - 7 assessed: 11/18/22 Feeling nervous, anxious, or on edge: 0 = Not at all Not being able to stop or control worryin = Not at all Worrying too much about different things: 0 = Not at all Trouble relaxin = Not at all Being so restless that it is hard to sit still: 0 = Not at all Becoming easily annoyed or irritable: 0 = Not at all Feeling afraid as if something awful might happen: 0 = Not at all Total JOHNIE-7 score (0-4 normal; 5-9 mild; 10-14 moderate; 15-21 severe): 0 Source: Developed by Drs. Quintin Amato, Alexandra Gusman, Wayne Eng and colleagues, with an educational elisa from [employer]. Review of Systems Const Denies chills, Denies fatigue, Denies fever(s) and Denies headache(s) ENT Denies dysphagia, Denies dizziness, Denies otalgia, Denies headache(s), Denies neck pain, Denies odynophagia and Denies sore throat Card Denies chest pain, Denies palpitations and Denies dyspnea Resp Denies cough and Denies dyspnea GI Denies abdominal pain, Denies constipation, Denies dysphagia, Denies heartburn, Denies diarrhea, Denies nausea, Denies odynophagia and Denies vomiting Denies difficulty voiding, Denies nocturia and Denies dysuria Musc Denies back pain and Denies neck pain Skin/Breast Denies rash Neuro Denies dizziness and Denies headache(s) Endo Denies fatigue and Denies palpitations Physical exam (Primary Care) Vital Signs: Last Vital Signs Pulse 71 11/18/22 10:02 BP 124/80 11/18/22 10:02 Pulse Ox 98 11/18/22 10:02 Oxygen Delivery Method Room Air 11/18/22 10:02 BMI result Body Mass Index 24.0 Tobacco/Smoking Status: Tobacco use Status Tobacco use date assessed 11/18/22 11/18/22 10:07 Patient Tobacco Use Status Current everyday Tobacco 11/18/22 10:07 e-Cigarette/Vaping Use Never Used 11/18/22 10:07 PHQ-9: PHQ-9 Score PHQ-9: Total score 0 11/18/22 10:07 Depression Screening Interpretation: Negative Thrive Assessment: Date of Thrive Assessment Date Thrive assessed 11/18/22 11/18/22 10:07 Currently or been in a relationship where the following occur: no concerns reported Const General: no acute distress and alert HENMT Ears: TM's normal bilaterally and EAC's normal Throat: Yes posterior oropharynx normal and Yes tonsils normal (no TP congestion noted) Neck Neck: Yes no lymphadenopathy and Yes supple Resp Auscultation: clear to auscultation bilaterally, no rales and no wheezes Cardio Rate: regular rate Rhythm: regular rhythm Heart sounds: no murmurs GI Palpation (GI): Soft to palpation and nontender Auscultation: normal bowel sounds Skin Rashes: no rashes Extrem General: Yes no clubbing, cyanosis or edema Results Reviewed Results Reviewed: Laboratory Tests 11/13/22 11/13/22 11/13/22 08:53 08:53 08:55 WBC 5.6 Hgb 13.4 Hct 39.0 Plt Count 218 Sodium 140 Potassium 4.1 Creatinine 0.75 Estimated GFR > 60 Fasting Glucose 98 Calcium 9.5 AST 22 ALT 21 Triglycerides 97 Cholesterol 128 LDL Cholesterol, Calc 72 HDL Cholesterol 37 L 25-OH Vitamin D Total 41.9 TSH 0.01 L Free T4 1.17 Ur Specific [place] 1.010 Urine Protein Negative Urine Glucose (UA) Negative Urine Blood Negative Assessment and Plan Assessment & Plan (1) Pure hypercholesterolemia: Code(s): E78.00 - Pure hypercholesterolemia, unspecified Plan: Results of her labs done last week reviewed and discussed with patient - advised that her cholesterol levels have improved slightly from previous Reinforced low cholesterol diet Continue Simvastatin 40 mg QD Will recheck her labs and fasting lipids in 4 months for follow up (2) Benign essential hypertension: Code(s): I10 - Essential (primary) hypertension Plan: Reinforced low sodium diet - goal is systolic BP of at least 130 to 140 mm or less Continue Lisinopril 20 mg QD (3) Acquired hypothyroidism: Comment: (+) Shiv's Code(s): E03.9 - Hypothyroidism, unspecified Plan: TFTs done last week still showed low TSH level; free T4 remains normal; patient remains clinically euthyroid Continue Levothyroxine 88 mcg daily Will recheck her TFTs in 4 months for follow up (4) Impaired fasting glucose: Code(s): R73.01 - Impaired fasting glucose Plan: HgbA1c was normal at 5.2% and 5.3% when checked previously Reinforced low calorie diet/exercise as tolerated (5) Pernicious anemia: Code(s): D51.0 - Vitamin B12 deficiency anemia due to intrinsic factor deficiency Plan: Continue Vitamin B12 tablets 1000 mcg QD (6) Osteoporosis: Code(s): M81.0 - Age-related osteoporosis without current pathological fracture Qualifiers: Osteoporosis type: age-related Presence of current pathological fracture: without current pathological fracture Qualified Code(s): M81.0 - Age-related osteoporosis without current pathological fracture Plan: Repeat BMD done on 03/22/2021 showed a slight decreased from previous BMD in the lumbar spine; BMD in the femur remains unchanged from previous Patient is again encouraged on regular exercise and physical activity and continue daily Calcium and Vitamin D supplements Fall precautions reinforced Will continue to monitor her BMD every 2 to 3 years (7) Vitamin D deficiency: Code(s): E55.9 - Vitamin D deficiency, unspecified Plan: Continue Vitamin D3 2000 units QD Will recheck Vitamin D level in 4 months for follow up (8) Allergic rhinitis: Code(s): J30.9 - Allergic rhinitis, unspecified Qualifiers: Allergic rhinitis trigger: unspecified Allergic rhinitis seasonality: unspecified Qualified Code(s): J30.9 - Allergic rhinitis, unspecified Plan: Continue Loratadine 10 mg QD PRN (9) Right foot pain: Code(s): M79.671 - Pain in right foot Plan: X-rays of the right foot done last year revealed (+) pes cavum and small calcaneal spur States that her foot symptoms have improved a lot with physical therapy and with 3 separate cortisone injections from podiatry Follow up with podiatry (Dr. Marguerite Linder) as scheduled/as needed - states that she is scheduled to have one of her toenails removed next month by podiatry Plan Follow up in 4 months Orders: Orders Lipid Panel 4 Months E78.00 - Pure hypercholesterolemia, unspecified Comprehensive [place]. Panel Fast 4 Months E78.00 - Pure hypercholesterolemia, unspecified Thyroid Stimulating Hormone 4 Months E03.9 - Hypothyroidism, unspecified Free T4 (Free Thyroxine) 4 Months E03.9 - Hypothyroidism, unspecified Complete Blood Count Auto Diff 4 Months I10 - Essential (primary) hypertension Vitamin D 25-OH Total 4 Months E55.9 - Vitamin D deficiency, unspecified Vitamin B12 and Folate 4 Months E53.8 - Deficiency of other specified B group vitamins UA CC w/rflx Micro + Cult 4 Months R30.0 - Dysuria Medications: Refilled simvastatin 40 mg PO BEDTIME 90 tabs 3RF 90 days E78.00 - Pure hypercholesterolemia, unspecified mecobalamin (vitamin B12) place tablet under tongue and allow to dissolve for at least 30 secs before swallowing 1,000 mcg sublingual DAILY 90 tabs 3RF 90 days cholecalciferol (vitamin D3) 50 mcg PO DAILY 90 caps 3RF 90 days E55.9 - Vitamin D deficiency, unspecified Coding Level of Care Code Est Pt Level 4 (81471) Diagnoses Pure hypercholesterolemia E78.00 Benign essential hypertension I10 Acquired hypothyroidism E03.9 Impaired fasting glucose R73.01 Pernicious anemia D51.0 Osteoporosis M81.0 Osteoporosis type: age-related Presence of current pathological fracture: without current pathological fracture Vitamin D deficiency E55.9 Allergic rhinitis J30.9 Allergic rhinitis trigger: unspecified Allergic rhinitis seasonality: unspecified Right foot pain M79.671
== END 2022-11-18 10:48 | disposition home or self-care (01) ==
PROVIDERS: PCP Internal Medicine; Visit Provider Internal Medicine
DX: I10 Essential (primary) hypertension (principal); E03.9 Hypothyroidism, unspecified; E55.9 Vitamin D deficiency, unspecified; E78.00 Pure hypercholesterolemia, unspecified; R73.01 Impaired fasting glucose; D51.0 Vitamin B12 deficiency anemia due to intrinsic factor deficiency; M81.0 Age-related osteoporosis without current pathological fracture; J30.9 Allergic rhinitis, unspecified; M79.671 Pain in right foot
CPT/HCPCS: 99214

== ENCOUNTER 2023-03-26 07:41 | Outpatient (REF) | payer OTHER, SELFPAY ==
[2023-03-26 11:34] LABS: MANUAL DIFF FLAG NO
[2023-03-26 11:47] LABS: Basophils Absolute Auto 0.1 X10*3/uL (0.0-0.2); Eosinophils Absolute Auto 0.3 X10*3/uL (0.0-0.4); Eosinophils Percent Auto 5.1 % (0-4); Hematocrit 40.4 % (37.0-47.0); Hemoglobin 13.9 g/dl (12.0-16.0); Imm Gran Abs Auto 0.02 X10*3/uL (0.00-0.03); Imm Gran Pct Auto 0.3 % (0.0-0.4); Lymphocytes Absolute Auto 2.1 X10*3/uL (1.2-4.9); Lymphocytes Percent Auto 36.1 % (20-40); Mean Corpuscular HGB Conc 34.4 g/dl (31.0-35.0); Mean Corpuscular Hemoglobin 31.6 pg (27.0-33.0); Mean Corpuscular Volume 91.8 fL (80.0-98.0); Monocytes Absolute Auto 0.4 X10*3/uL (0.1-1.2); Monocytes Percent Auto 6.6 % (2-11); Neutrophils Percent Auto 50.9 % (45-73); Platelet Count 216 X10*3/uL (160-400); Red Cell Distribution Width 12.3 % (11.0-16.0); White Blood Count 5.9 X10*3/uL (4.8-10.8)
[2023-03-26 12:07] LABS: Appearance Urine Cloudy; Color Urine Yellow; Glucose Urine UA Negative (Negative); Leukocyte Esterase Urine Trace (Negative); Nitrite Urine Negative (Negative); PH 5.5 (5.0-9.0); UMIC TRIGGER UACC YES; Urine Blood Negative (Negative); Urine Ketones Negative (Negative); Urine Protein Negative (Neg-Trace)
[2023-03-26 12:28] LABS: Bacteria Urine 4+ (None Seen); Folate 4.9 ng/mL (> or = 4.0); RBC Urine 0-2 /HPF (0-2); UACC Culture Trigger YES; Vitamin B12 724 pg/mL (200-900)
[2023-03-26 12:29] LABS: Alanine Aminotransferase 21 U/L (0-31); Albumin Level 4.2 g/dL (3.5-5.0); Alkaline Phosphatase 75 U/L (39-117); Anion Gap 10 (12-20); Aspartate Amino Transferase 22 U/L (5-31); Bilirubin Total 0.6 mg/dL (0.0-1.0); Blood Urea Nitrogen 8 mg/dL (9-16); Calcium 9.4 mg/dL (8.4-10.2); Carbon Dioxide 29 mmol/L (22-29); Chloride 107 mmol/L (96-108); Cholesterol 139 mg/dL (<200); Estimated Glomerular Filt Rate > 60; Glucose Fasting 96 mg/dL (60-99); HDL Cholesterol 39 mg/dL (>40); LDL Cholesterol Calculated 80 mg/dL (<100); Potassium 3.6 mmol/L (3.3-5.1); Sodium 142 mmol/L (135-145); Total Protein 6.8 g/dL (6.5-8.0); Triglycerides 104 mg/dL (<150)
[2023-03-26 12:43] LABS: Vitamin D 25-OH Total 46.4 ng/mL (>30)
[2023-03-26 12:44] LABS: Free T4 (Free Thyroxine) 1.07 ng/dL (0.71-1.85)
[2023-03-26 13:15] LABS: Thyroid Stimulating Hormone 0.01 uIU/mL (0.32-4.0)
== END 2023-03-26 07:42 | disposition home or self-care (01) ==
LOC: HO.HMGCLDS 07:41
PROVIDERS: PCP Internal Medicine; Visit Provider Internal Medicine
DX: E55.9 Vitamin D deficiency, unspecified (principal); E53.8 Deficiency of other specified B group vitamins; E78.00 Pure hypercholesterolemia, unspecified; E03.9 Hypothyroidism, unspecified; I10 Essential (primary) hypertension; R30.0 Dysuria
CPT/HCPCS: 36415; 80053; 80061; 81001; 81003; 82306; 82607; 82746; 84439; 84443; 85025; 87086

== ENCOUNTER → 2023-04-01 08:00 | Outpatient (BNV) | payer OTHER, SELFPAY | PROVIDERS: PCP Internal Medicine; Visit Provider Radiology Diagnostic Radiology | DX: Z12.31 Encounter for screening mammogram for malignant neoplasm of breast (principal) | CPT/HCPCS: 77063; 77067 ==

== ENCOUNTER 2023-04-01 08:21 | Outpatient (REF) | payer OTHER, SELFPAY ==
--- NOTE | ~2023-04-01 | MM_ITS ---
EXAMINATION: MM SCREENING DIGITAL BREAST TOMOSYNTHESIS, BILATERAL CLINICAL INFORMATION: Screening. Asymptomatic. COMPARISON: Mammography: This study is compared with prior exams dating back to 2016. TECHNIQUE: Digital breast tomosynthesis is performed in both the craniocaudal and mediolateral oblique views along with computer-aided detection (CAD). Synthesized 2D images are generated from the tomosynthesis. FINDINGS: There are scattered areas of fibroglandular density (ACR BI-RADS breast composition Category b). There are no significant masses, abnormal calcifications, or other abnormalities. MM/MM tomosynthesis screening BI IMPRESSION: No mammographic evidence of malignancy. ASSESSMENT: BI-RADS BI-RADS 1 - Negative RECOMMENDATION: Routine annual mammography screening. 1 year F/U This examination should not preclude the clinical evaluation of a suspicious palpable abnormality. This patient's information was entered into a reminder system with a target due date for their next mammogram.
== END 2023-04-01 08:22 | disposition home or self-care (01) ==
LOC: HO.MAMMO 08:21
PROVIDERS: PCP Internal Medicine; Visit Provider Internal Medicine
DX: Z12.31 Encounter for screening mammogram for malignant neoplasm of breast (principal)
CPT/HCPCS: 77063; 77067

== ENCOUNTER 2023-04-01 14:14 | Outpatient (AMB) | payer OTHER, SELFPAY ==
[2023-04-01 14:18] VITALS: BP 138/86; PULSE 60; O2SAT 96; BMI 23.6
--- NOTE | 2023-04-01 14:18 | A.OFFPC_ITS ---
Vital Signs 04/01/23 14:18 Height 5 ft 3 in Weight 133 lb BMI 23.6 BP 138/86 Blood Pressure Location Lt brachial Position Sitting Pulse 60 Pulse Source Pulse Oximeter Pulse Oximetry (%) 96 Oxygen Delivery Method Room Air Intake Visit Reasons: hyperlipidemia, HTN, hypothyroidism Light Technician Required: No Accompanied by: Self / Same As Patient Allergies No Known Allergies Allergy (Verified 04/01/23 14:54) Medication List - Last Reconciled 04/01/23 by Anurag Ren MD cholecalciferol (vitamin D3) 50 mcg PO DAILY 90 days levothyroxine 88 mcg PO DAILY 90 days lisinopril 20 mg PO DAILY 90 days mecobalamin (vitamin B12) 1,000 mcg sublingual DAILY 90 days simvastatin 40 mg PO BEDTIME 90 days Tobacco use date assessed: 04/01/23 Fall risk assessment: No Falls in past year Last assessed Fall Risk: 04/01/23 Dental Screening Dental Screen Date: 04/01/23 Did you have a dental visit in the last 12 months?: No Did you have a dental problem in the last 6 months where you did not have access to dental care?: No Was dental information given to patient?: No HPI hyperlipidemia, HTN, hypothyroidism HPI Details Patient comes in today for her follow up visit States that she feels okay She denies any headaches or dizziness Denies any chest pains, no SOB No nausea/vomiting, no abdominal pain No change in bowel habits noted Had her follow up labs done last week - to discuss her results [facility] Medical History Vitamin D deficiency Osteoporosis Allergic rhinitis Pernicious anemia Acquired hypothyroidism Pure hypercholesterolemia Impaired fasting glucose Benign essential hypertension Surgical History History of excision of mass Family History Father No problems noted. Mother No problems noted. Social History Housing: House Alcohol intake: current Alcohol intake frequency: holidays/special occasions only Patient Tobacco Use Status: Current everyday Tobacco user Cigarettes Per Day: 6 e-Cigarette/Vaping Use: Never Used Second Hand Smoke Exposure: Yes service: No Current occupational status: retired Cognitive needs: No Hearing needs: No Vision needs: No Questionnaire PHQ-9 Over the last 2 weeks, how often have you been bothered by any of the following problems? 1. Little interest or pleasure in doing things: not at all 2. Feeling down, depressed, or hopeless: not at all 3. Trouble falling or staying asleep, or sleeping too much: not at all 4. Feeling tired or having little energy: not at all 5. Poor appetite or overeating: not at all 6. Feeling bad about yourself - or that you are a failure or have let yourself or your family down: not at all 7. Trouble concentrating on things, such as reading the newspaper or watching television: not at all 8. Moving or speaking so slowly that other people could have noticed. Or the opposite - being so fidgety or restless that you have been moving around a lot more than usual: not at all 9. Thoughts that you would be better off or of hurting yourself in some way: not at all Total score: 0 Depression Screening Interpretation: Negative Depression Screening Done: Yes 60971 - PHQ-9 Billing: Yes Source: Developed by Drs. Quintin Amato, Alexandra Gusman, Wayne Eng and colleagues, with an educational elisa from [employer]. Thrive Questionnaire Date Thrive assessed: 04/01/23 I am a: Patient What is your living situation today?: I have a steady place to live Within the past 12 months, did the food you bought not last and you didn't have the money to get more?: Never true Within the past 12 months, did you worry whether your food would run out before you got money to buy more?: Never true Do you have trouble paying for medicines?: No Do you have trouble getting transportation to medical appointments?: No Do you have trouble paying your heating and electricity bill?: No Do you have trouble taking care of your child, family member or friend?: No Do you have trouble with day-to-day activities such as bathing, preparing meals, shopping, managing finances, etc.?: No Are you currently unemployed and looking for a job?: No Are you interested in more education?: No Please select the resources that you would like help with: None Currently or been in a relationship where the following occur: no concerns reported AUDIT C Alcohol Use Questionnaire (AUDIT-C) 1. How often do you have a drink containing alcohol?: Monthly or less 2. How many drinks containing alcohol do you have on a typical day when you are drinking?: 1 or 2 3. How often do you have six or more drinks on one occasion?: Never Total Score: 1 Score Reviewed/Action Taken: Yes JOHNIE-7 AMB Questionnaire JOHNIE-7 Date JOHNIE - 7 assessed: 04/01/23 Feeling nervous, anxious, or on edge: 0 = Not at all Not being able to stop or control worryin = Not at all Worrying too much about different things: 0 = Not at all Trouble relaxin = Not at all Being so restless that it is hard to sit still: 0 = Not at all Becoming easily annoyed or irritable: 0 = Not at all Feeling afraid as if something awful might happen: 0 = Not at all Total JOHNIE-7 score (0-4 normal; 5-9 mild; 10-14 moderate; 15-21 severe): 0 Source: Developed by Drs. Quintin Amato, Alexandra Gusman, Wayne seay nd colleagues, with an educational elisa from [employer]. Review of Systems Const Denies chills, Denies fatigue, Denies fever(s) and Denies headache(s) ENT Denies dysphagia, Denies dizziness, Denies otalgia, Denies headache(s), Denies neck pain, Denies odynophagia and Denies sore throat Card Denies chest pain, Denies palpitations and Denies dyspnea Resp Denies cough and Denies dyspnea GI Denies abdominal pain, Denies constipation, Denies dysphagia, Denies heartburn, Denies diarrhea, Denies nausea, Denies odynophagia and Denies vomiting Denies difficulty voiding, Denies nocturia, Denies dysuria and Denies urinary urgency Musc Denies back pain and Denies neck pain Skin/Breast Denies rash Neuro Denies dizziness and Denies headache(s) Endo Denies fatigue and Denies palpitations Physical exam (Primary Care) Vital Signs: Last Vital Signs Pulse 60 04/01/23 14:18 BP 138/86 04/01/23 14:18 Pulse Ox 96 04/01/23 14:18 Oxygen Delivery Method Room Air 04/01/23 14:18 BMI result Body Mass Index 23.6 Tobacco/Smoking Status: Tobacco use Status Tobacco use date assessed 04/01/23 04/01/23 14:19 Patient Tobacco Use Status Current everyday Tobacco 04/01/23 14:19 e-Cigarette/Vaping Use Never Used 04/01/23 14:19 PHQ-9: PHQ-9 Score PHQ-9: Total score 0 04/01/23 14:31 Depression Screening Interpretation: Negative Thrive Assessment: Date of Thrive Assessment Date Thrive assessed 04/01/23 04/01/23 14:19 Currently or been in a relationship where the following occur: no concerns reported Const General: no acute distress and alert HENMT Ears: TM's normal bilaterally and EAC's normal Throat: Yes posterior oropharynx normal and Yes tonsils normal (no TP congestion) Neck Neck: Yes no lymphadenopathy and Yes supple Resp Auscultation: clear to auscultation bilaterally, no rales and no wheezes Cardio Rate: regular rate Rhythm: regular rhythm Heart sounds: no murmurs GI Palpation (GI): Soft to palpation and nontender Auscultation: normal bowel sounds General: Yes no CVA tenderness Back/Spine/Pelvis Back: no CVA tenderness Thoracic/Lumbar Spine: No lumbar spinal tenderness Skin Rashes: no rashes Extrem General: Yes no clubbing, cyanosis or edema Results Reviewed Results Reviewed: Laboratory Tests 03/26/23 07:47 WBC 5.9 Hgb 13.9 Hct 40.4 Plt Count 216 Sodium 142 Potassium 3.6 Creatinine 0.76 Estimated GFR > 60 Fasting Glucose 96 Calcium 9.4 AST 22 ALT 21 Triglycerides 104 Cholesterol 139 LDL Cholesterol, Calc 80 HDL Cholesterol 39 L Vitamin B12 724 25-OH Vitamin D Total 46.4 TSH 0.01 L Free T4 1.07 Ur Specific [place] 1.010 Urine Protein Negative Urine Glucose (UA) Negative Urine Blood Negative Urine Nitrite Negative Ur Leukocyte Esterase Trace H Assessment and Plan Assessment & Plan (1) Benign essential hypertension: Code(s): I10 - Essential (primary) hypertension Plan: Reinforced low sodium diet - goal is systolic BP of at least 130 to 140 mm or less Continue Lisinopril 20 mg QD (2) Pure hypercholesterolemia: Code(s): E78.00 - Pure hypercholesterolemia, unspecified Plan: Results of her labs done last week reviewed and discussed with patient Reinforced low cholesterol diet Continue Simvastatin 40 mg QD Will recheck her labs and fasting lipids in 4 months for follow up (3) Acquired hypothyroidism: Comment: (+) Shiv's Code(s): E03.9 - Hypothyroidism, unspecified Plan: TFTs done last week still showed a low/suppressed TSH level; free T4 remains normal and patient remains clinically euthyroid Continue Levothyroxine 88 mcg daily Will recheck her TFTs in 4 months for follow up (4) Impaired fasting glucose: Code(s): R73.01 - Impaired fasting glucose Plan: HgbA1c was normal at 5.2% and 5.3% when checked previously; FBS was normal at 96 mg/dl on her labs done last week Reinforced low calorie diet/exercise as tolerated (5) Pernicious anemia: Code(s): D51.0 - Vitamin B12 deficiency anemia due to intrinsic factor deficiency Plan: Continue Vitamin B12 tablets 1000 mcg QD (6) Osteoporosis: Code(s): M81.0 - Age-related osteoporosis without current pathological fracture Qualifiers: Osteoporosis type: age-related Presence of current pathological fracture: without current pathological fracture Qualified Code(s): M81.0 - Age-related osteoporosis without current pathological fracture Plan: Repeat BMD done on 03/22/2021 showed a slight decreased from previous BMD in the lumbar spine; BMD in the femur remains unchanged from previous Patient is again encouraged on regular exercise and physical activity and continue daily Calcium and Vitamin D supplements Fall precautions reinforced Will continue to monitor her BMD every 2 to 3 years (7) Vitamin D deficiency: Code(s): E55.9 - Vitamin D deficiency, unspecified Plan: Continue Vitamin D3 2000 units QD Will recheck her Vitamin D level in 4 months for follow up (8) Allergic rhinitis: Code(s): J30.9 - Allergic rhinitis, unspecified Qualifiers: Allergic rhinitis trigger: unspecified Allergic rhinitis seasonality: unspecified Qualified Code(s): J30.9 - Allergic rhinitis, unspecified Plan: Continue Loratadine 10 mg QD PRN (9) Right foot pain: Code(s): M79.671 - Pain in right foot Plan: X-rays of the right foot done last year revealed (+) pes cavum and small calcaneal spur States that her foot symptoms have improved a lot with physical therapy and with 3 separate cortisone injections from podiatry Follow up with podiatry (Dr. Marguerite Linder) as scheduled/as needed Plan Follow up in 4 months Orders: Orders Complete Blood Count Auto Diff 4 Months D64.9 - Anemia, unspecified Comprehensive [place]. Panel Fast 4 Months E78.00 - Pure hypercholesterolemia, unspecified Thyroid Stimulating Hormone 4 Months E03.9 - Hypothyroidism, unspecified Vitamin D 25-OH Total 4 Months E55.9 - Vitamin D deficiency, unspecified Lipid Panel 4 Months E78.00 - Pure hypercholesterolemia, unspecified Free T4 (Free Thyroxine) 4 Months E03.9 - Hypothyroidism, unspecified UA CC w/rflx Micro + Cult 4 Months R30.0 - Dysuria Coding Level of Care Code Est Pt Level 4 (96657) Diagnoses Benign essential hypertension I10 Pure hypercholesterolemia E78.00 Acquired hypothyroidism E03.9 Impaired fasting glucose R73.01 Pernicious anemia D51.0 Age-related osteoporosis without current pathological fracture M81.0 Osteoporosis type: age-related Presence of current pathological fracture: without current pathological fracture Vitamin D deficiency E55.9 Allergic rhinitis, unspecified seasonality, unspecified trigger J30.9 Allergic rhinitis trigger: unspecified Allergic rhinitis seasonality: unspecified Right foot pain M79.671
== END 2023-04-01 15:00 | disposition home or self-care (01) ==
PROVIDERS: PCP Internal Medicine; Visit Provider Internal Medicine
DX: I10 Essential (primary) hypertension (principal); E78.00 Pure hypercholesterolemia, unspecified; E03.9 Hypothyroidism, unspecified; R73.01 Impaired fasting glucose; D51.0 Vitamin B12 deficiency anemia due to intrinsic factor deficiency; M81.0 Age-related osteoporosis without current pathological fracture; E55.9 Vitamin D deficiency, unspecified; J30.9 Allergic rhinitis, unspecified; M79.671 Pain in right foot
CPT/HCPCS: 99214

== ENCOUNTER 2023-07-01 15:11 | Outpatient (AMB) | payer OTHER, SELFPAY ==
[2023-07-01 15:39] VITALS: BP 120/62; PULSE 70; TEMP 36.6; O2SAT 99; BMI 22.5
--- NOTE | 2023-07-01 15:39 | MHC.OFFWIV ---
Intake Vital Signs 07/01/23 15:39 Height 5 ft 3 in Weight 127 lb BMI 22.5 BP 120/62 Blood Pressure Location Lt brachial Position Sitting Pulse 70 Pulse Source Pulse Oximeter Temp 97.9 F Temp Source Oral Pulse Oximetry (%) 99 Oxygen Delivery Method Room Air Intake Visit Reasons: EP thinks she has yeast infection (lobby) Intake Note: Patient is here with possible yeast infection, she states she has a discharge and is itchy for 2 days, tried Monistat with no relief. Patient Tobacco Use Status: Current everyday Tobacco user Allergies No Known Allergies Allergy (Verified 07/01/23 15:41) Do you need a note to return to daycare/school/sports/work: No HPI HPI Comments History of Present Illness Details 72 y/o female patient who presents to [facility] in clinic with c/o Urinary symptoms x 2 days. Reports burning with urination. Denies fevers, chills, nausea or vomiting. PFS Medical History Vitamin D deficiency Osteoporosis Allergic rhinitis Pernicious anemia Acquired hypothyroidism Pure hypercholesterolemia Impaired fasting glucose Benign essential hypertension Surgical History History of excision of mass Family History Father No problems noted. Mother No problems noted. Social History Housing: House Alcohol intake: current Alcohol intake frequency: holidays/special occasions only Patient Tobacco Use Status: Current everyday Tobacco user Cigarettes Per Day: 6 e-Cigarette/Vaping Use: Never Used Second Hand Smoke Exposure: Yes service: No Current occupational status: retired Cognitive needs: No Hearing needs: No Vision needs: No Review of Systems Const All systems reviewed & are unremarkable except as noted in HPI and below Physical Exam Vital Signs: Last Vital Signs Temp 97.9 F 07/01/23 15:39 Pulse 70 07/01/23 15:39 BP 120/62 07/01/23 15:39 Pulse Ox 99 07/01/23 15:39 Oxygen Delivery Method Room Air 07/01/23 15:39 BMI result Body Mass Index 22.5 Const General: comfortable and no acute distress Orientation/consciousness: patient oriented x3 GI Inspection: Yes normal to inspection Palpation (GI): Soft to palpation, not firm, nontender and no guarding General: Yes bladder normal to palpation External Female Exam: normal external appearance, normal appearance of the urethra, No erythema, No externally tender, No external swelling, No lesion and No urethral discharge Speculum Exam - Vagina: normal appearance of the vagina and nontender Speculum Exam - Cervix: normal appearance of the cervix, normal palpation, Cervical os open and nontender Bimanual exam- vagina & uterus: bladder normal to palpation, normal palpation and No Cervical tenderness present OB/external & speculum: Cervical os open Neuro General: patient oriented x3 and gait normal Psych Speech and movement: Normal speech and movement present Results AMB Urinalysis, Automated UA Leukoctes 15 Leonard/uL Last Edit by Alexandrea Brock CMA on 07/01/23 16:19 UA Nitrite Negative Last Edit by Alexandrea Brock CMA on 07/01/23 16:19 UA Urobilinogen 0.2 mg/dL Last Edit by Alexandrea Brock CMA on 07/01/23 16:19 UA Protein 0 mg/dL Last Edit by Alexandrea Brock CMA on 07/01/23 16:19 UA pH 6.0 Last Edit by Alexandrea Brock CMA on 07/01/23 16:19 UA Blood 0 Alejandro/uL Last Edit by Alxeandrea Brock CMA on 07/01/23 16:19 UA Specific [place] 100 Last Edit by Alexandrea Brock CMA on 07/01/23 16:19 UA Ketone Negative Last Edit by Alexandrea Brock CMA on 07/01/23 16:19 UA Bilirubin 0 mg/dL Last Edit by Alexandrea Brock CMA on 07/01/23 16:19 UA Glucose 0 mg/dL Last Edit by Alexandrea Brock CMA on 07/01/23 16:19 Assessment & Plan Assessment & Plan (1) Dysuria: Code(s): R30.0 - Dysuria Plan: - Hydrate with plenty of fluids - Take medications as prescribed Orders: Orders AMB Urinalysis Automated Today R39.9 - Unspecified symptoms and signs involving the genitourinary system Medications: New nitrofurantoin monohyd/m-cryst 100 mg (Macrobid) must administer with a meal/food 100 mg PO Q12H 7 days 14 caps 0RF R30.0 - Dysuria Coding Level of Care Code Est Pt Level 4 (05501) Diagnoses Dysuria R30.0 Time Spent (min) 20 Comment Pelvic examination done
== END 2023-07-01 17:01 | disposition home or self-care (01) ==
PROVIDERS: PCP Internal Medicine; Visit Provider Nurse Practitioner Family
DX: R39.9 Unspecified symptoms and signs involving the genitourinary system (principal); R30.0 Dysuria
CPT/HCPCS: 81003; 99214

== ENCOUNTER 2023-07-17 15:22 | Outpatient (AMB) | payer OTHER, SELFPAY ==
[2023-07-17 15:26] VITALS: BP 128/70; PULSE 86; TEMP 36.6; O2SAT 98; BMI 21.8
--- NOTE | 2023-07-17 15:26 | MHC.OFFWIV ---
Intake Vital Signs 07/17/23 15:26 Height 5 ft 3 in Weight 123 lb BMI 21.8 BP 128/70 Blood Pressure Location Rt brachial Position Sitting Pulse 86 Pulse Source Pulse Oximeter Temp 97.8 F Temp Source Oral Pulse Oximetry (%) 98 Oxygen Delivery Method Room Air Intake Visit Reasons: Ep doesn't feel well , stomach pain n nausea Intake Note: Pt presents to the office today for c/o stomach pain and nausea that started about a week ago. She isn't sure if its gas or constipation. Patient Tobacco Use Status: Current everyday Tobacco user Allergies No Known Allergies Allergy (Verified 07/17/23 15:28) HPI HPI Comments History of Present Illness Details 72 y/o female patient who presents to walk in clinic with c/o urinary symptoms. Pt was seen by me in 06/2023 for similar symptoms and was treated with Macrobid. Pt reports feeling better for few days. Reports new symptoms started ~ 2 days ago. She does also c/o lower abdominal cramping associated with constipation, nausea and vomiting. She had 1 episode of vomiting yesterday. [facility] Medical History Vitamin D deficiency Osteoporosis Allergic rhinitis Pernicious anemia Acquired hypothyroidism Pure hypercholesterolemia Impaired fasting glucose Benign essential hypertension Surgical History History of excision of mass Family History Father No problems noted. Mother No problems noted. Social History Housing: House Alcohol intake: current Alcohol intake frequency: holidays/special occasions only Patient Tobacco Use Status: Current everyday Tobacco user Cigarettes Per Day: 6 e-Cigarette/Vaping Use: Never Used Second Hand Smoke Exposure: Yes service: No Current occupational status: retired Cognitive needs: No Hearing needs: No Vision needs: No Review of Systems Const All systems reviewed & are unremarkable except as noted in HPI and below Physical Exam Vital Signs: Last Vital Signs Temp 97.8 F 07/17/23 15:26 Pulse 86 07/17/23 15:26 BP 128/70 07/17/23 15:26 Pulse Ox 98 07/17/23 15:26 Oxygen Delivery Method Room Air 07/17/23 15:26 BMI result Body Mass Index 21.8 Const General: comfortable and no acute distress Orientation/consciousness: patient oriented x3 GI Inspection: Yes normal to inspection and No distended Palpation (GI): Soft to palpation, not firm, nontender, no guarding, not rigid and No hepatosplenomegaly present Percussion: Yes normal to percussion Auscultation: Hypoactive bowel sounds present Rectal Exam - Female: deferred General: Yes no CVA tenderness Back/Spine/Pelvis Back: no CVA tenderness and No back tenderness Neuro General: patient oriented x3, gait normal and moves all extremities Psych Speech and movement: Normal speech and movement present Results AMB Urinalysis, Automated UA Leukoctes 0 Leonard/uL Last Edit by Leslee De Leon CMA on 07/17/23 16:07 UA Nitrite Negative Last Edit by Leslee De Leon CMA on 07/17/23 16:07 UA Urobilinogen 0.2 mg/dL Last Edit by Leslee De Leon CMA on 07/17/23 16:07 UA Protein 0 mg/dL Last Edit by Leslee De Leon CMA on 07/17/23 16:07 UA pH 6.0 Last Edit by Leslee De Leon CMA on 07/17/23 16:07 UA Blood 0 Alejandro/uL Last Edit by Leslee De Leon CMA on 07/17/23 16:07 UA Specific [place] 1.010 Last Edit by Leslee De Leon CMA on 07/17/23 16:07 UA Ketone Negative Last Edit by Leslee De Leon CMA on 07/17/23 16:07 UA Bilirubin 0 mg/dL Last Edit by Leslee De Leon CMA on 07/17/23 16:07 UA Glucose 0 mg/dL Last Edit by Leslee De Leon CMA on 07/17/23 16:07 Results Reviewed Results Reviewed: Laboratory Last Values Urine pH (Auto) 6.0 07/17/23 16:06 Specific [place] (Auto) 1.010 07/17/23 16:06 Urine Protein (Auto) 0 mg/dL 07/17/23 16:06 Glucose (UA)(Auto) 0 mg/dL 07/17/23 16:06 Urine Ketones (Auto) Negative 07/17/23 16:06 Urine Blood (Auto) 0 Alejandro/uL 07/17/23 16:06 Urine Nitrite (Auto) Negative 07/17/23 16:06 Urine Bilirubin (Auto) 0 mg/dL 07/17/23 16:06 Urine Urobilinogen (Auto) 0.2 mg/dL 07/17/23 16:06 Leukocyte Esterase (Auto) 0 Leonard/uL 07/17/23 16:06 Assessment & Plan Assessment & Plan (1) Dysuria: Code(s): R30.0 - Dysuria Plan: - Will send Urine culture for C&S - Hydrate with plenty of fluids (2) Constipation: Code(s): K59.00 - Constipation, unspecified Qualifiers: Constipation type: slow transit constipation Qualified Code(s): K59.01 - Slow transit constipation Plan: - Ordered Miralax - Increase fiber intake by eating Fruits, and veggies. Orders: Orders UA CC w/rflx Micro + Cult Today R30.0 - Dysuria AMB Urinalysis Automated Today Z13.9 - Encounter for screening, unspecified Medications: New polyethylene glycol 3350 (Miralax) 17 grams PO DAILY 119 grams 0RF constipation K59.01 - Slow transit constipation Coding Level of Care Code Est Pt Level 3 (05631) Diagnoses Dysuria R30.0 Slow transit constipation K59.01 Constipation type: slow transit constipation Time Spent (min) 15
== END 2023-07-17 16:03 | disposition home or self-care (01) ==
PROVIDERS: PCP Internal Medicine; Visit Provider Nurse Practitioner Family
DX: R30.0 Dysuria (principal); K59.01 Slow transit constipation; Z13.9 Encounter for screening, unspecified
CPT/HCPCS: 81003; 99213

== ENCOUNTER 2023-07-17 15:59 | Outpatient (REF) | payer OTHER, SELFPAY ==
[2023-07-18 11:24] LABS: Appearance Urine Clear; Color Urine Yellow; Glucose Urine UA Negative (Negative); Leukocyte Esterase Urine Trace (Negative); Nitrite Urine Negative (Negative); PH 6.5 (5.0-9.0); UMIC TRIGGER UACC YES; Urine Blood Negative (Negative); Urine Ketones Negative (Negative); Urine Protein Negative (Neg-Trace)
[2023-07-18 12:06] LABS: Bacteria Urine 4+ (None Seen); Hyaline Casts Urine 0-2 /LPF (0-2); RBC Urine 0-2 /HPF (0-2); WBC Urine 0-5 /HPF (0-5)
== END 2023-07-17 16:00 | disposition home or self-care (01) ==
LOC: HO.LAB 15:59
PROVIDERS: Visit Provider Nurse Practitioner Family
DX: Z13.9 Encounter for screening, unspecified (principal)
CPT/HCPCS: 81001

== ENCOUNTER 2023-07-25 14:47 | Emergency (ER) | payer OTHER, SELFPAY ==
[2023-07-25 15:18] VITALS: BP 149/65; PULSE 66; RESP 18; TEMP 36.8; O2SAT 97; BMI 22.1
--- NOTE | 2023-07-25 15:19 | ED_ITS ---
HPI - General Adult General Chief complaint: Abdominal Pain Stated complaint: l side abd pain Time Seen by Provider: 07/25/23 18:39 Source: patient and family Mode of arrival: ambulatory Limitations: no limitations History of Present Illness HPI narrative: 72-year-old female past medical history of hypertension and hypothyroid presents to the emergency department, with her , for complaints of left lower quadrant abdominal pain for the past several days. She reports that she hasn't been feeling well for the past several weeks with dry heaving, weakness, and LLQ abdominal pain. Previous concerns for constipation with last BM earlier today. She denies any fever, chills, melena, BRBPR, nausea, vomiting dysuria, hematuria Pertinent positives and negatives discussed in the HPI Related Data Previous Rx's ?Medication ?Instructions ?Recorded levothyroxine 88 mcg tablet 88 mcg PO DAILY 90 days #90 tabs 07/15/22 lisinopril 20 mg tablet 20 mg PO DAILY 90 days #90 tabs 07/15/22 cholecalciferol (vitamin D3) 50 50 mcg PO DAILY 90 days #90 caps 11/18/22 mcg (2,000 unit) capsule mecobalamin (vitamin B12) 1,000 1,000 mcg sublingual DAILY 90 days 11/18/22 mcg disintegrating #90 tabs tablet,sublingual simvastatin 40 mg tablet 40 mg PO BEDTIME 90 days #90 tabs 11/18/22 polyethylene glycol 3350 17 17 g PO DAILY constipation #119 07/17/23 gram/dose oral powder (Miralax) grams Allergies Allergy/AdvReac Type Severity Reaction Status Date / Time No Known Allergies Allergy Verified 07/25/23 15:21 Review of Systems 2 Review of Systems: Yes all other systems are reviewed and are negative PMF Past Medical History Medical History Vitamin D deficiency Osteoporosis Allergic rhinitis Pernicious anemia Acquired hypothyroidism Pure hypercholesterolemia Impaired fasting glucose Benign essential hypertension Surgical History History of excision of mass Family History Family History Father No problems noted. Mother No problems noted. Social History Social History Housing: House Alcohol intake: current Alcohol intake frequency: holidays/special occasions only Patient Tobacco Use Status: Current everyday Tobacco user Cigarettes Per Day: 6 e-Cigarette/Vaping Use: Never Used Second Hand Smoke Exposure: Yes Advance Directives: No Advance Directives Information Provided: No Do you have a plan to hurt others: No Plan service: No Current occupational status: retired Cognitive needs: No Hearing needs: No Vision needs: No Physical Exam ED Vital Signs: Vital Signs - 24 hr 07/25/23 15:18 07/25/23 18:49 Temperature 98.2 F 98.0 F Pulse Rate 66 68 Respiratory Rate 18 18 Blood Pressure 149/65 H 141/68 H Pulse Oximetry 97 97 Oxygen Delivery Method Room Air Room Air BMI result Body Mass Index 22.1 Nursing notes and vital signs reviewed. GENERAL APPEARANCE: A&0 x 4, generally well appearing, no acute distress HENMT: Normal to inspection, atraumatic, face symmetrical. Normal external ears, nose, and oropharynx clear. EYE: PERRLA, EOM intact, structures appear normal NECK: Supple without lymphadenopathy. No stiffness or restricted ROM. CHEST: Normal to inspection HEART: Normal rate and regular rhythm, normal S1/S2, no M/R/G LUNGS: LS CTA, moving air well. Able to speak in complete sentences. No crackles, wheezes, or rhonchi auscultated ABDOMEN: Soft, nondistended. TTP LLQ. Normal bowel sounds noted BACK: No CVAT, no obvious deformity EXTREMITIES: Moving all extremities without difficulty. No cyanosis, clubbing, or edema. Normal capillary refill. NEUROLOGICAL: Alert and oriented, moving all 4 extremities with equal strength. CN not formally tested but appearing grossly intact. Observed to ambulate with normal gait. Cognition normal SKIN: Warm and dry without any lesions, rash, or visible sores PSYCH: Cooperative, normal affect, normal thought process Medical Decision Making Medical Decision Making MDM Narrative: Old records reviewed for previous imaging, lab studies, ECGs, and notes an additional HPI obtained from patient's spouse. Patient was assessed the emergency department with no acute distress or toxicity noted. Blood work showing no evidence organ dysfunction, anemia, leukocytosis, or electrolyte imbalance. CT scan offered to further assess for causes of left lower quadrant pain and declined by patient as she states she will follow up with her PCP for additional imaging as they see fit. Patient educated to increase fluid intake to prevent dehydration. Patient also declined urinalysis as she states that her urine was ?negative the other day?. Patient is safe for discharge at this time with plan for [id number] Tylenol and/or NSAID such as ibuprofen or naproxen for fever/discomfort with dosing as per packaging. HPI, PE, diagnostics, and plan discussed with patient and family with no unanswered questions at this time. Strict return precautions given to return to the emergency department with new, worsening, or concerning emergent symptoms. Recommended to follow-up with there primary care provider in 24-48 hours for further treatment and management. Differential Diagnosis Differential Diagnoses: The differential diagnosis associated with the presentation includes But not limited to SBO, perforation, constipation, diverticulitis, colitis, Crohn's, sepsis, malignancy Lab Data MDM Lab Attestation statement: I reviewed the patient's lab results. 07/25/23 15:59 07/25/23 15:59 Labs: Lab Results 07/25/23 Range/Units 15:59 WBC 7.0 (4.8-10.8) X10*3/uL RBC 4.42 (4.20-5.50) X10*6/uL Hgb 14.5 (12.0-16.0) g/dl Hct 40.1 (37.0-47.0) % MCV 90.7 (80.0-98.0) fL MCH 32.8 (27.0-33.0) pg MCHC 36.2 H (31.0-35.0) g/dl RDW 12.1 (11.0-16.0) % Plt Count 229 (160-400) X10*3/uL MPV 9.4 (9.4-12.3) fL Immature Gran % (Auto) 0.1 (0.0-0.4) % Neut % (Auto) 61.3 (45-73) % Lymph % (Auto) 30.4 (20-40) % Luce % (Auto) 6.2 (2-11) % Eos % (Auto) 1.4 (0-4) % Baso % (Auto) 0.6 (0-2) % Lymph # (Auto) 2.1 (1.2-4.9) X10*3/uL Luce # (Auto) 0.4 (0.1-1.2) X10*3/uL Eos # (Auto) 0.1 (0.0-0.4) X10*3/uL Baso # (Auto) 0.0 (0.0-0.2) X10*3/uL Abs Immat Gran (auto) 0.01 (0.00-0.03) X10*3/uL Absolute Neuts (auto) 4.3 (2.0-8.3) x10*3/uL Absolute Nucleated RBC 0.000 (0.0-0.012) X10*3/uL Nucleated RBC % (auto) 0.0 (0.0-0.2) /100WBC Sodium 139 (135-145) mmol/L Potassium 4.0 (3.3-5.1) mmol/L Chloride 104 (96-108) mmol/L Carbon Dioxide 25 (22-29) mmol/L Anion Gap 14 (12-20) BUN 9 (9-16) mg/dL Creatinine 0.79 (0.5-1.4) mg/dL Estim Creat Clear Calc 51.6 Estimated GFR > 60 Random Glucose 107 (60-115) mg/dL Calcium 10.0 D (8.4-10.2) mg/dL Total Bilirubin 0.8 (0.0-1.0) mg/dL AST 21 (5-31) U/L ALT 26 (0-31) U/L Alkaline Phosphatase 69 (39-117) U/L Total Protein 7.4 (6.5-8.0) g/dL Albumin 4.7 (3.5-5.0) g/dL Independent Historian Clinical information obtained from an independent historian. History obtained from or confirmed by: Spouse Tests considered The following testing was considered but not selected: CT abdomen/pelvis Prescription Management I considered prescription management with: Antibiotic Are considered no evidence of bacterial infection was identified at this time Chronic Conditions Patient?s care impacted by: Hypertension Discharge Plan Discharge Clinical Impression: Abdominal pain Patient Disposition: Home, Self-Care Instructions: Abdominal Pain (ED) Additional Instructions: Your seen in the emergency department for concerns of abdominal pain. Your blood work was unremarkable. It was recommended that a CT scan of the abdomen with contrast be completed, however; you have elected to discuss this with your primary care provider. Please follow up in the next 1-2 days with your PCP You are safe for discharge at this time with plan for management of fever or discomfort with [id number] Tylenol and/or NSAID such as ibuprofen or naproxen with dosing as per packaging. Please return to the emergency department with new, worsening, or concerning emergent symptoms. Recommended to follow-up with your primary care provider in 24-48 hours for further treatment and management. Thank you for choosing [facility]. Prescriptions: No Action levothyroxine 88 mcg tablet 88 mcg PO DAILY 90 Days Qty: 90 3RF lisinopril 20 mg tablet 20 mg PO DAILY 90 Days Qty: 90 3RF simvastatin 40 mg tablet 40 mg PO BEDTIME 90 Days Qty: 90 3RF mecobalamin (vitamin B12) 1,000 mcg tablet,disintegrating 1,000 mcg sublingual DAILY 90 Days Qty: 90 3RF Rx Instructions: place tablet under tongue and allow to dissolve for at least 30 secs before swallowing cholecalciferol (vitamin D3) 50 mcg (2,000 unit) capsule 50 mcg PO DAILY 90 Days Qty: 90 3RF polyethylene glycol 3350 [Miralax] 17 gram/dose powder 17 g PO DAILY Qty: 119 0RF Referrals: Anurag Ren MD [Primary Care Provider] - Interventions: ED Discharge Assessment Last Done: 07/25/23 18:49 Discharge Date/Time: 07/25/23 18:50 Print Language: Divehi
[2023-07-25 16:05] LABS: MANUAL DIFF FLAG NO
[2023-07-25 16:07] LABS: Basophils Percent Auto 0.6 % (0-2); Eosinophils Absolute Auto 0.1 X10*3/uL (0.0-0.4); Eosinophils Percent Auto 1.4 % (0-4); Hematocrit 40.1 % (37.0-47.0); Hemoglobin 14.5 g/dl (12.0-16.0); Imm Gran Abs Auto 0.01 X10*3/uL (0.00-0.03); Imm Gran Pct Auto 0.1 % (0.0-0.4); Lymphocytes Absolute Auto 2.1 X10*3/uL (1.2-4.9); Lymphocytes Percent Auto 30.4 % (20-40); Mean Corpuscular HGB Conc 36.2 g/dl (31.0-35.0); Mean Corpuscular Hemoglobin 32.8 pg (27.0-33.0); Mean Corpuscular Volume 90.7 fL (80.0-98.0); Mean Platelet Volume 9.4 fL (9.4-12.3); Monocytes Absolute Auto 0.4 X10*3/uL (0.1-1.2); Monocytes Percent Auto 6.2 % (2-11); Neutrophils Absolute Auto 4.3 x10*3/uL (2.0-8.3); Neutrophils Percent Auto 61.3 % (45-73); Platelet Count 229 X10*3/uL (160-400); Red Blood Count 4.42 X10*6/uL (4.20-5.50); Red Cell Distribution Width 12.1 % (11.0-16.0)
[2023-07-25 16:29] LABS: Alanine Aminotransferase 26 U/L (0-31); Albumin Level 4.7 g/dL (3.5-5.0); Alkaline Phosphatase 69 U/L (39-117); Anion Gap 14 (12-20); Aspartate Amino Transferase 21 U/L (5-31); Bilirubin Total 0.8 mg/dL (0.0-1.0); Blood Urea Nitrogen 9 mg/dL (9-16); Carbon Dioxide 25 mmol/L (22-29); Chloride 104 mmol/L (96-108); Creatinine Clr Calc Pharmacy 51.6; Estimated Glomerular Filt Rate > 60; Glucose Random 107 mg/dL (60-115); Sodium 139 mmol/L (135-145); Total Protein 7.4 g/dL (6.5-8.0)
--- NOTE | 2023-07-25 18:47 | PC.NURSE ---
pt came to triage door with not wanting to wait in the ed waiting room anymore claiming she has alot of anxiety, pt requesting to be discharged and she will follow up with her pcp. triage provider saw patient, pt is to be discharged out of triage
[2023-07-25 18:49] VITALS: BP 141/68; PULSE 68; RESP 18; TEMP 36.7; O2SAT 97
== END 2023-07-25 18:50 | disposition home or self-care (01) ==
PROVIDERS: Nurse Practitioner Family; Emergency Provider Emergency Medicine; PCP Internal Medicine
DX: R10.32 Left lower quadrant pain (principal); I10 Essential (primary) hypertension; D51.0 Vitamin B12 deficiency anemia due to intrinsic factor deficiency
CPT/HCPCS: 36415; 80053; 85025; 99282; 99283

== ENCOUNTER 2023-08-06 09:33 | Outpatient (AMB) | payer OTHER, SELFPAY ==
[2023-08-06 09:35] VITALS: BP 120/76; PULSE 64; O2SAT 97; BMI 21.2
--- NOTE | 2023-08-06 09:35 | A.OFFPC_ITS ---
Vital Signs 08/06/23 09:35 Height 5 ft 2 in Weight 116 lb 0.6 oz BMI 21.2 BP 120/76 Blood Pressure Location Lt brachial Position Sitting Pulse 64 Pulse Source Pulse Oximeter Pulse Oximetry (%) 97 Oxygen Delivery Method Room Air Intake Visit Reasons: HTN, hyperlipidemia, hypothyroidism Intake Note: Patient is here to follow up Head Housekeeper Required: No Allergies No Known Allergies Allergy (Verified 08/06/23 10:22) Medication List - Last Reconciled 08/06/23 by Anurag Ren MD cholecalciferol (vitamin D3) 50 mcg PO DAILY 90 days levothyroxine 88 mcg PO DAILY 90 days lisinopril 20 mg PO DAILY 90 days mecobalamin (vitamin B12) 1,000 mcg sublingual DAILY 90 days polyethylene glycol 3350 (Miralax) 17 grams PO DAILY simvastatin 40 mg PO BEDTIME 90 days Tobacco use date assessed: 08/06/23 Fall risk assessment: No Falls in past year Last assessed Fall Risk: 08/06/23 Dental Screening Dental Screen Date: 04/01/23 HPI HTN, hyperlipidemia, hypothyroidism HPI Details Patient comes in today for her follow up visit States that she currently feels okay but recalls that she was experiencing recurrent and increasing left lower abdominal pain a couple of weeks ago She was also reportedly experiencing increased weakness and some dry heaving at the time She had some initial labs done, which came out normal and was recommended to get an abdominal and pelvic CT done but patient declined the procedure at the time and chose to go home and follow up with her PCP regarding this Patient states that she still has on and off abdominal bloating and some pain at times She denies any nausea or vomiting; denies any diarrhea or change in bowel habits She denies any headaches or dizziness Denies chest pains, no shortness of breath noted Patient's family members have also noticed that she has lost a lot of weight recently and is concerned about this FORMERLY [facility], [facility] Medical History Vitamin D deficiency Osteoporosis Allergic rhinitis Pernicious anemia Acquired hypothyroidism Pure hypercholesterolemia Impaired fasting glucose Benign essential hypertension Surgical History History of excision of mass Family History Father No problems noted. Mother No problems noted. Social History Housing: House Alcohol intake: current Alcohol intake frequency: holidays/special occasions only Patient Tobacco Use Status: Current everyday Tobacco user Cigarettes Per Day: 6 e-Cigarette/Vaping Use: Never Used Second Hand Smoke Exposure: Yes service: No Current occupational status: retired Cognitive needs: No Hearing needs: No Vision needs: No Questionnaire Thrive Questionnaire Date Thrive assessed: 04/01/23 I am a: Patient What is your living situation today?: I have a steady place to live Within the past 12 months, did the food you bought not last and you didn't have the money to get more?: Never true Within the past 12 months, did you worry whether your food would run out before you got money to buy more?: Never true Do you have trouble paying for medicines?: No Do you have trouble getting transportation to medical appointments?: No Do you have trouble paying your heating and electricity bill?: No Do you have trouble taking care of your child, family member or friend?: No Do you have trouble with day-to-day activities such as bathing, preparing meals, shopping, managing finances, etc.?: No Are you currently unemployed and looking for a job?: No Are you interested in more education?: No Please select the resources that you would like help with: None Currently or been in a relationship where the following occur: no concerns reported THRIVE Score: 0 AUDIT C Alcohol Use Questionnaire (AUDIT-C) 1. How often do you have a drink containing alcohol?: Monthly or less 2. How many drinks containing alcohol do you have on a typical day when you are drinking?: 1 or 2 3. How often do you have six or more drinks on one occasion?: Never Total Score: 1 Score Reviewed/Action Taken: Yes JOHNIE-7 AMB Questionnaire JOHNIE-7 Date JOHNIE - 7 assessed: 04/01/23 Source: Developed by Drs. Quintin Amato, Alexandra Gusman, Wayne Eng and colleagues, with an educational elisa from [employer]. Review of Systems Const Denies chills, Reports fatigue, Denies fever(s), Denies headache(s) and Reports weight loss ENT Denies dysphagia, Denies dizziness, Denies otalgia, Denies headache(s), Denies neck pain, Denies odynophagia and Denies sore throat Card Denies chest pain, Denies palpitations and Denies dyspnea Resp Denies cough and Denies dyspnea GI Reports abdominal pain (on and off over the LLQ lately - see HPI), Denies constipation, Denies dysphagia, Denies heartburn, Denies diarrhea, Denies nausea, Denies odynophagia and Denies vomiting Denies difficulty voiding, Denies nocturia, Denies dysuria and Denies urinary urgency Musc Denies back pain and Denies neck pain Skin/Breast Denies rash Neuro Denies dizziness and Denies headache(s) Endo Reports fatigue and Denies palpitations Physical exam (Primary Care) Vital Signs: Last Vital Signs Pulse 64 08/06/23 09:35 BP 120/76 08/06/23 09:35 Pulse Ox 97 08/06/23 09:35 Oxygen Delivery Method Room Air 08/06/23 09:35 BMI result Body Mass Index 21.2 Tobacco/Smoking Status: Tobacco use Status Tobacco use date assessed 08/06/23 08/06/23 09:36 Patient Tobacco Use Status Current everyday Tobacco 08/06/23 09:36 e-Cigarette/Vaping Use Never Used 08/06/23 09:36 Thrive Assessment: Date of Thrive Assessment Date Thrive assessed 04/01/23 08/06/23 09:36 Currently or been in a relationship where the following occur: no concerns reported Const General: no acute distress and alert HENMT Ears: TM's normal bilaterally and EAC's normal Throat: Yes posterior oropharynx normal and Yes tonsils normal (no TP congestion) Neck Neck: Yes no lymphadenopathy and Yes supple Thyroid: Thyroid normal Resp Auscultation: clear to auscultation bilaterally, no rales and no wheezes Cardio Rate: regular rate Rhythm: regular rhythm Heart sounds: no murmurs GI Palpation (GI): Soft to palpation and nontender Auscultation: normal bowel sounds General: Yes no CVA tenderness Back/Spine/Pelvis Back: no CVA tenderness Thoracic/Lumbar Spine: No lumbar spinal tenderness Skin Rashes: no rashes Extrem General: Yes no clubbing, cyanosis or edema Results Reviewed Results Reviewed: Laboratory Tests 07/25/23 15:59 WBC 7.0 Hgb 14.5 Hct 40.1 Plt Count 229 Sodium 139 Potassium 4.0 Creatinine 0.79 Estimated GFR > 60 Random Glucose 107 Calcium 10.0 D AST 21 ALT 26 Assessment and Plan Assessment & Plan (1) Benign essential hypertension: Code(s): I10 - Essential (primary) hypertension Plan: Reinforced low sodium diet - goal is systolic BP of at least 130 to 140 mm or less Continue Lisinopril 20 mg QD (2) Pure hypercholesterolemia: Code(s): E78.00 - Pure hypercholesterolemia, unspecified Plan: Results of her labs done at the ER a couple of weeks ago reviewed and discussed with patient although these were non-fasting labs and did not include her lipid profile Reinforced low cholesterol diet Continue Simvastatin 40 mg QD Will recheck her labs and fasting lipids in 4 months for follow up (3) Acquired hypothyroidism: Comment: (+) Shiv's Code(s): E03.9 - Hypothyroidism, unspecified Plan: Her TFTs last done in March 2023 still showed a low/suppressed TSH level but her free T4 appears to be normal Will send her for repeat TFTs YULIET for follow up Continue Levothyroxine 88 mcg QD for now until we get the results of her repeat free T4 level back (4) Impaired fasting glucose: Code(s): R73.01 - Impaired fasting glucose Plan: HgbA1c was normal at 5.2% and 5.3% when checked previously; RBS was normal at 107 mg/dl on her labs done a couple of weeks ago Reinforced low calorie diet/exercise as tolerated (5) Pernicious anemia: Code(s): D51.0 - Vitamin B12 deficiency anemia due to intrinsic factor deficiency Plan: Continue Vitamin B12 tablets 1000 mcg QD Will recheck her B12 level for follow up (6) Vitamin D deficiency: Code(s): E55.9 - Vitamin D deficiency, unspecified Plan: Continue Vitamin D3 2000 units QD (7) Osteoporosis: Code(s): M81.0 - Age-related osteoporosis without current pathological fracture Qualifiers: Osteoporosis type: age-related Presence of current pathological fracture: without current pathological fracture Qualified Code(s): M81.0 - Age-related osteoporosis without current pathological fracture Plan: Repeat BMD done on 03/22/2021 showed a slight decreased from previous BMD in the lumbar spine; BMD in the femur remains unchanged from previous Patient is again encouraged on regular exercise and physical activity and continue daily Calcium and Vitamin D supplements Fall precautions reinforced Will continue to monitor her BMD every 2 to 3 years (8) Allergic rhinitis: Code(s): J30.9 - Allergic rhinitis, unspecified Qualifiers: Allergic rhinitis seasonality: unspecified Allergic rhinitis trigger: unspecified Qualified Code(s): J30.9 - Allergic rhinitis, unspecified Plan: Continue Loratadine 10 mg QD PRN (9) Weight loss, unintentional: Code(s): R63.4 - Abnormal weight loss Plan: Will send patient for additional labs YULIET for further evaluation (10) Memory changes: Code(s): R41.3 - Other amnesia Plan: Will check labs first -if labs are unrevealing and symptoms persist or progress, will consider referring to neurology for further evaluation and management Plan Follow up in 4 months Orders: Orders Transglutaminase IgA 08/06/23 K52.9 - Noninfective gastroenteritis and colitis, unspecified Celiac Disease Panel 08/06/23 K52.9 - Noninfective gastroenteritis and colitis, unspecified Thyroid Stimulating Hormone 08/06/23 E03.9 - Hypothyroidism, unspecified, R41.3 - Other amnesia Erythrocyte Sedimentation Rate 08/06/23 R41.3 - Other amnesia Vitamin B12 and Folate 08/06/23 E53.8 - Deficiency of other specified B group vitamins, R41.3 - Other amnesia Complete Blood Count Auto Diff 08/06/23 D64.9 - Anemia, unspecified, R41.3 - Other amnesia Free T4 (Free Thyroxine) 4 Months E03.9 - Hypothyroidism, unspecified Vitamin B12 and Folate 4 Months E53.8 - Deficiency of other specified B group vitamins Vitamin D 25-OH Total 4 Months E55.9 - Vitamin D deficiency, unspecified Free T4 (Free Thyroxine) 08/06/23 E03.9 - Hypothyroidism, unspecified, R41.3 - Other amnesia Comprehensive Met. Panel 08/06/23 R41.3 - Other amnesia C Reactive Protein 08/06/23 R41.3 - Other amnesia Lyme IgG/IgM w/reflex to WB 08/06/23 R41.3 - Other amnesia Comprehensive Rosalie. Panel Fast 4 Months E78.00 - Pure hypercholesterolemia, unspecified Lipid Panel 4 Months E78.00 - Pure hypercholesterolemia, unspecified Thyroid Stimulating Hormone 4 Months E03.9 - Hypothyroidism, unspecified Complete Blood Count Auto Diff 4 Months D64.9 - Anemia, unspecified UA CC w/rflx Micro + Cult 4 Months R30.0 - Dysuria Coding Level of Care Code Est Pt Level 4 (17086) Diagnoses Benign essential hypertension I10 Pure hypercholesterolemia E78.00 Acquired hypothyroidism E03.9 Impaired fasting glucose R73.01 Pernicious anemia D51.0 Vitamin D deficiency E55.9 Age-related osteoporosis without current pathological fracture M81.0 Osteoporosis type: age-related Presence of current pathological fracture: without current pathological fracture Allergic rhinitis, unspecified seasonality, unspecified trigger J30.9 Allergic rhinitis seasonality: unspecified Allergic rhinitis trigger: unspecified Weight loss, unintentional R63.4 Memory changes R41.3
== END 2023-08-06 10:24 | disposition home or self-care (01) ==
PROVIDERS: PCP Internal Medicine; Visit Provider Internal Medicine
DX: I10 Essential (primary) hypertension (principal); E78.00 Pure hypercholesterolemia, unspecified; E03.9 Hypothyroidism, unspecified; R73.01 Impaired fasting glucose; D51.0 Vitamin B12 deficiency anemia due to intrinsic factor deficiency; E55.9 Vitamin D deficiency, unspecified; M81.0 Age-related osteoporosis without current pathological fracture; J30.9 Allergic rhinitis, unspecified; R63.4 Abnormal weight loss; R41.3 Other amnesia
CPT/HCPCS: 99214

== ENCOUNTER 2023-08-06 10:29 | Outpatient (REF) | payer OTHER, SELFPAY ==
[2023-08-06 11:03] LABS: MANUAL DIFF FLAG NO
[2023-08-06 11:09] LABS: Basophils Percent Auto 0.6 % (0-2); Eosinophils Absolute Auto 0.1 X10*3/uL (0.0-0.4); Eosinophils Percent Auto 0.9 % (0-4); Hematocrit 41.6 % (37.0-47.0); Hemoglobin 14.7 g/dl (12.0-16.0); Imm Gran Abs Auto 0.01 X10*3/uL (0.00-0.03); Imm Gran Pct Auto 0.2 % (0.0-0.4); Lymphocytes Absolute Auto 1.7 X10*3/uL (1.2-4.9); Lymphocytes Percent Auto 25.5 % (20-40); Mean Corpuscular HGB Conc 35.3 g/dl (31.0-35.0); Mean Corpuscular Hemoglobin 32.9 pg (27.0-33.0); Mean Corpuscular Volume 93.1 fL (80.0-98.0); Mean Platelet Volume 9.8 fL (9.4-12.3); Monocytes Absolute Auto 0.4 X10*3/uL (0.1-1.2); Monocytes Percent Auto 5.5 % (2-11); Neutrophils Absolute Auto 4.4 x10*3/uL (2.0-8.3); Neutrophils Percent Auto 67.3 % (45-73); Platelet Count 216 X10*3/uL (160-400); Red Blood Count 4.47 X10*6/uL (4.20-5.50); Red Cell Distribution Width 12.1 % (11.0-16.0); White Blood Count 6.6 X10*3/uL (4.8-10.8)
[2023-08-06 11:38] LABS: Alanine Aminotransferase 26 U/L (0-31); Albumin Level 4.9 g/dL (3.5-5.0); Alkaline Phosphatase 69 U/L (39-117); Anion Gap 12 (12-20); Aspartate Amino Transferase 25 U/L (5-31); Bilirubin Total 0.9 mg/dL (0.0-1.0); Blood Urea Nitrogen 8 mg/dL (9-16); C Reactive Protein < 0.04 mg/dL (< or = 0.50); Calcium 10.3 mg/dL (8.4-10.2); Carbon Dioxide 28 mmol/L (22-29); Chloride 106 mmol/L (96-108); Cholesterol 180 mg/dL (<200); Estimated Glomerular Filt Rate > 60; Glucose Fasting 112 mg/dL (60-99); Glucose Random 113 mg/dL (60-115); HDL Cholesterol 55 mg/dL (>40); LDL Cholesterol Calculated 109 mg/dL (<100); Sodium 142 mmol/L (135-145); Total Protein 7.6 g/dL (6.5-8.0); Triglycerides 83 mg/dL (<150)
[2023-08-06 11:45] LABS: Appearance Urine Clear; Color Urine Yellow; Glucose Urine UA Negative (Negative); Leukocyte Esterase Urine Trace (Negative); Nitrite Urine Negative (Negative); Specific Gravity - Urine <= 1.005 (1.005-1.025); UMIC TRIGGER UACC YES; Urine Blood Negative (Negative); Urine Ketones Negative (Negative); Urine Protein Negative (Neg-Trace)
[2023-08-06 11:51] LABS: Free T4 (Free Thyroxine) 1.35 ng/dL (0.71-1.85); Thyroid Stimulating Hormone 0.02 uIU/mL (0.32-4.0); Vitamin D 25-OH Total 40.2 ng/mL (>30)
[2023-08-06 11:54] LABS: Erythrocyte Sedimentation Rate 3 MM/HR (0-20)
[2023-08-06 11:55] LABS: Bacteria Urine 2+ (None Seen); Hyaline Casts Urine 0-2 /LPF (0-2); RBC Urine 0-2 /HPF (0-2); WBC Urine 0-5 /HPF (0-5)
[2023-08-06 13:52] LABS: Folate 4.9 ng/mL (> or = 4.0); Vitamin B12 1366 pg/mL (200-900)
[2023-08-07 11:43] LABS: Lyme Abs Screen <0.90 index
[2023-08-11 13:47] LABS: Immunoglobulin A 224 mg/dL (70-320); Transglutaminase IgA 30.4 U/mL
== END 2023-08-06 10:30 | disposition home or self-care (01) ==
LOC: HO.LAB 10:29
PROVIDERS: PCP Internal Medicine; Visit Provider Internal Medicine
DX: E03.9 Hypothyroidism, unspecified (principal); E55.9 Vitamin D deficiency, unspecified; K52.9 Noninfective gastroenteritis and colitis, unspecified; R41.3 Other amnesia; E53.8 Deficiency of other specified B group vitamins; E78.00 Pure hypercholesterolemia, unspecified; D64.9 Anemia, unspecified
CPT/HCPCS: 36415; 80053; 80061; 81001; 82306; 82607; 82746; 82784; 84439; 84443; 85025; 85652; 86140; 86364; 86617; 86618

== ENCOUNTER 2023-09-02 10:48 | Outpatient (AMB) | payer OTHER, SELFPAY ==
--- NOTE | 2023-09-02 10:50 | A.OFFPC_ITS ---
Vital Signs 09/02/23 10:51 09/02/23 11:36 Height 5 ft 2 in Weight 115 lb BMI 21.0 BP 154/76 H 140/80 H Blood Pressure Location Lt brachial Lt brachial Position Sitting Sitting Pulse 65 Pulse Source Pulse Oximeter Pulse Oximetry (%) 97 Oxygen Delivery Method Room Air Intake Visit Reasons: [facility] 08/21 episodes Intake Note: Patient is here for hospital discharge follow up. [place] [facility] [place] Technical Product Manager Required: No Allergies No Known Allergies Allergy (Verified 09/02/23 11:48) Medication List - Last Reconciled 09/02/23 by Anurag Ren MD aspirin 81 mg PO DAILY 90 days cholecalciferol (vitamin D3) 50 mcg PO DAILY 90 days levothyroxine 88 mcg PO DAILY 90 days lisinopril 20 mg PO DAILY 90 days mecobalamin (vitamin B12) 1,000 mcg sublingual DAILY 90 days polyethylene glycol 3350 (Miralax) 17 grams PO DAILY sertraline 25 mg PO DAILY 90 days simvastatin 40 mg PO BEDTIME 90 days Tobacco use date assessed: 09/02/23 Fall risk assessment: No Falls in past year Last assessed Fall Risk: 09/02/23 Dental Screening Dental Screen Date: 04/01/23 HPI [facility] 08/21 episodes HPI Details Patient comes in today for her HDF follow up visit She was brought to the ER at [facility] as her family has noticed some increasing confusion and recurrent episodes of emotional lability and behavioral changes, which patient states that she has no recollection of Her states that she would seemingly just snap out of it all of a sudden after a while and she would be completely back to normal after her outbursts and they are concerned that there may be something underlying these episodes that has not yet been diagnosed or discovered She had labs, head CT and EKG done at the ER, all of which came out normal and she was advised to follow up with her PCP soon for further evaluation Patient was also recently diagnosed with celiac disease and states that her diarrhea has resolved and bowel movements are back to normal as soon as she started herself on a gluten-free diet She denies any headaches or dizziness Denies any chest pains, no SOB No nausea/vomiting, no abdominal pain PFSH Medical History (Updated 09/02/23 @ 12:18 by Anurag Ren MD) Anxiety Celiac disease Vitamin D deficiency Osteoporosis Allergic rhinitis Pernicious anemia Acquired hypothyroidism Pure hypercholesterolemia Impaired fasting glucose Benign essential hypertension Surgical History History of excision of mass Family History Father No problems noted. Mother No problems noted. Social History Housing: House Alcohol intake: current Alcohol intake frequency: holidays/special occasions only Patient Tobacco Use Status: Current everyday Tobacco user Cigarettes Per Day: 6 e-Cigarette/Vaping Use: Never Used Second Hand Smoke Exposure: Yes service: No Current occupational status: retired Cognitive needs: No Hearing needs: No Vision needs: No Questionnaire Thrive Questionnaire Date Thrive assessed: 04/01/23 AUDIT C Alcohol Use Questionnaire (AUDIT-C) 1. How often do you have a drink containing alcohol?: Monthly or less 2. How many drinks containing alcohol do you have on a typical day when you are drinking?: 1 or 2 3. How often do you have six or more drinks on one occasion?: Never Total Score: 1 Score Reviewed/Action Taken: Yes JOHNIE-7 AMB Questionnaire JOHNIE-7 Date JOHNIE - 7 assessed: 04/01/23 Source: Developed by Drs. Quintin Amato, Alexandra Gusman, Wayne Eng and colleagues, with an educational elisa from [employer]. Review of Systems Const Denies chills, Reports fatigue, Denies fever(s) and Denies headache(s) ENT Denies dysphagia, Denies dizziness, Denies otalgia, Denies headache(s), Denies neck pain, Denies odynophagia and Denies sore throat Card Denies chest pain, Denies palpitations and Denies dyspnea Resp Denies cough and Denies dyspnea GI Denies abdominal pain, Denies constipation, Denies dysphagia, Denies heartburn, Denies diarrhea, Denies nausea, Denies odynophagia and Denies vomiting Denies difficulty voiding, Denies nocturia, Denies dysuria and Denies urinary urgency Musc Denies back pain and Denies neck pain Skin/Breast Denies rash Neuro Reports as per HPI, Reports behavioral changes, Reports confusion, Denies dizziness, Denies headache(s) and Reports memory loss Psych Reports behavioral changes, Reports confusion and Reports memory loss Endo Reports fatigue and Denies palpitations Physical exam (Primary Care) Vital Signs: Last Vital Signs Pulse 65 09/02/23 10:51 BP 154/76 H 09/02/23 10:51 Pulse Ox 97 09/02/23 10:51 Oxygen Delivery Method Room Air 09/02/23 10:51 BMI result Body Mass Index 21.0 Tobacco/Smoking Status: Tobacco use Status Tobacco use date assessed 09/02/23 09/02/23 10:52 Patient Tobacco Use Status Current everyday Tobacco 09/02/23 10:52 e-Cigarette/Vaping Use Never Used 09/02/23 10:52 Thrive Assessment: Date of Thrive Assessment Date Thrive assessed 04/01/23 09/02/23 10:52 Const General: confusion Orientation/consciousness: confusion HENMT Throat: Yes posterior oropharynx normal and Yes tonsils normal (no TP congestion) Neck Neck: Yes no lymphadenopathy and Yes supple Thyroid: Thyroid normal Resp Auscultation: clear to auscultation bilaterally, no rales and no wheezes Cardio Rate: regular rate Rhythm: regular rhythm Heart sounds: no murmurs GI Palpation (GI): Soft to palpation and nontender Auscultation: normal bowel sounds General: Yes no CVA tenderness Back/Spine/Pelvis Back: no CVA tenderness Thoracic/Lumbar Spine: No lumbar spinal tenderness Skin Rashes: no rashes Neuro General: confusion Extrem General: Yes no clubbing, cyanosis or edema Assessment and Plan Assessment & Plan (1) Cognitive and behavioral changes: Code(s): R41.89 - Other symptoms and signs involving cognitive functions and awareness; R46.89 - Other symptoms and signs involving appearance and behavior Plan: I have discussed with patient and her that her recent cognitive issues and behavioral changes may be due to a number of issues, including possibly the beginning of mild cognitive impairment (as her recent head CT at [facility] revealed some parenchymal volume loss in the brain) and also partly due to anxiety Her labs and EKG done at the ER were otherwise all normal, as are her recent labs done here last month (July 2023) Advised that a stroke or TIA is a less likely possibility but she can start taking low dose Aspirin 81 mg QD if she wants and if this makes her feel better - reminded to take it with food if she does start taking it For completion, will refer her to neurology for further evaluation and management (2) Celiac disease: Code(s): K90.0 - Celiac disease Plan: Her celiac disease testing done last month came back positive, as evidence by an elevated tissue transglutaminase IgA level of 30.4 U/ml Patient states that her GI symptoms and bowel movements are all back to normal as soon as she started herself on a gluten-free diet, and she is advised to continue to do so Follow up with GI as scheduled (3) Benign essential hypertension: Code(s): I10 - Essential (primary) hypertension Plan: Reinforced low sodium diet - goal is systolic BP of at least 130 to 140 mm or less Continue Lisinopril 20 mg QD (4) Pure hypercholesterolemia: Code(s): E78.00 - Pure hypercholesterolemia, unspecified Plan: Reinforced low cholesterol diet Continue Simvastatin 40 mg QD Will recheck her labs and fasting lipids as scheduled in 3 months for follow up (5) Acquired hypothyroidism: Comment: (+) Shiv's Code(s): E03.9 - Hypothyroidism, unspecified Plan: Her TFTs last done last month (July 2023) still showed a low/suppressed TSH level but her free T4 appears to be normal but her free T4 level done at the ER last week now showed an elevated level at 1.86 Have advised patient that as she has lost so much weight over the past few months, her requirements have likely changed Will have her lower her Levothyroxine now to 75 mcg QD Will recheck her TFTs in November 2023 for follow up (6) Impaired fasting glucose: Code(s): R73.01 - Impaired fasting glucose Plan: HgbA1c was normal at 5.2% and 5.3% when checked previously; RBS was normal at 107 mg/dl on her labs done last month Reinforced low calorie diet/exercise as tolerated (7) Pernicious anemia: Code(s): D51.0 - Vitamin B12 deficiency anemia due to intrinsic factor deficiency Plan: Her B12 level was normal on her labs done last month Continue Vitamin B12 tablets 1000 mcg QD (8) Vitamin D deficiency: Code(s): E55.9 - Vitamin D deficiency, unspecified Plan: Continue Vitamin D3 2000 units QD (9) Osteoporosis: Code(s): M81.0 - Age-related osteoporosis without current pathological fracture Qualifiers: Osteoporosis type: age-related Presence of current pathological fracture: without current pathological fracture Qualified Code(s): M81.0 - Age- related osteoporosis without current pathological fracture Plan: Repeat BMD done on 03/22/2021 showed a slight decreased from previous BMD in the lumbar spine; BMD in the femur remains unchanged from previous Patient is again encouraged on regular exercise and physical activity and continue daily Calcium and Vitamin D supplements Fall precautions reinforced Will continue to monitor her BMD every 2 to 3 years (10) Allergic rhinitis: Code(s): J30.9 - Allergic rhinitis, unspecified Qualifiers: Allergic rhinitis trigger: unspecified Allergic rhinitis seasonality: unspecified Qualified Code(s): J30.9 - Allergic rhinitis, unspecified Plan: Continue Loratadine 10 mg QD PRN (11) Anxiety: Code(s): F41.9 - Anxiety disorder, unspecified Plan: Will start her on Sertraline 25 mg QD Plan Follow up as scheduled in November 2023 Orders: Referrals Neurology Referral R41.3 - Other amnesia, R41.89 - Other symptoms and signs involving cognitive functions and awareness, R46.89 - Other symptoms and signs involving appearance and behavior Medications: New sertraline 25 mg PO DAILY 90 days 90 tabs 1RF aspirin 81 mg PO DAILY 90 days 90 tabs 3RF Changed From levothyroxine 88 mcg PO DAILY 90 days 90 tabs 3RF E03.9 - Hypothyroidism, unspecified To levothyroxine 75 mcg PO DAILY 90 days 90 tabs 3RF E03.9 - Hypothyroidism, unspecified Coding Level of Care Code Est Pt Level 4 (09977) Diagnoses Cognitive and behavioral changes R41.89; R46.89 Celiac disease K90.0 Benign essential hypertension I10 Pure hypercholesterolemia E78.00 Acquired hypothyroidism E03.9 Impaired fasting glucose R73.01 Pernicious anemia D51.0 Vitamin D deficiency E55.9 Age-related osteoporosis without current pathological fracture M81.0 Osteoporosis type: age-related Presence of current pathological fracture: without current pathological fracture Allergic rhinitis, unspecified seasonality, unspecified trigger J30.9 Allergic rhinitis trigger: unspecified Allergic rhinitis seasonality: unspecified Anxiety F41.9
[2023-09-02 10:51] VITALS: BP 154/76; PULSE 65; O2SAT 97; BMI 21.0
[2023-09-02 11:36] VITALS: BP 140/80
== END 2023-09-02 11:46 | disposition home or self-care (01) ==
PROVIDERS: PCP Internal Medicine; Visit Provider Internal Medicine
DX: R41.89 Other symptoms and signs involving cognitive functions and awareness (principal); R46.89 Other symptoms and signs involving appearance and behavior; K90.0 Celiac disease; I10 Essential (primary) hypertension; E78.00 Pure hypercholesterolemia, unspecified; E03.9 Hypothyroidism, unspecified; R73.01 Impaired fasting glucose; D51.0 Vitamin B12 deficiency anemia due to intrinsic factor deficiency; E55.9 Vitamin D deficiency, unspecified; M81.0 Age-related osteoporosis without current pathological fracture; J30.9 Allergic rhinitis, unspecified; F41.9 Anxiety disorder, unspecified
CPT/HCPCS: 99214

== ENCOUNTER 2023-09-15 06:53 | Inpatient (IN) | payer OTHER, SELFPAY ==
[2023-09-15] VITALS (10 sets, daily range): BP systolic 121–151; BP diastolic 58–78; PULSE 63–84; RESP 16–18; TEMP 36.4–37.4; O2SAT 96–97; BMI 23.8
--- NOTE | 2023-09-15 | ECG_ITS ---
Test Reason : weakness Blood Pressure : / mmHG Vent. Rate : 064 BPM Atrial Rate : 064 BPM P-R Int : 146 ms QRS Dur : 082 ms QT Int : 424 ms P-R-T Axes : -02 031 037 degrees QTc Int : 437 ms Normal sinus rhythm Normal ECG When compared with ECG of 27-JUL-2017 09:43, No significant change was found Referred By: Destinee Wise Electronically Signed By:MAYELIN HALE
--- NOTE | ~2023-09-15 | XR_ITS ---
EXAMINATION: XR CHEST CLINICAL INFORMATION: Weakness COMPARISON: None available. TECHNIQUE: Frontal view of the chest was obtained. FINDINGS: No significant abnormality is noted involving the heart, lungs, mediastinum, bony thorax or soft tissues. XR/XR chest 1V IMPRESSION: Unremarkable examination.
--- NOTE | ~2023-09-15 | MR_ITS ---
EXAMINATION: MR BRAIN WITHOUT AND WITH CONTRAST CLINICAL INFORMATION: Gait issues, confusion, clonus. COMPARISON: CT scan of the head 09/15/2023. Ultrasound of the neck 05/30/2017. TECHNIQUE: Multiplanar, multisequence MRI of the brain was obtained before and after the intravenous administration of 6 mL Gadavist. FINDINGS: No diffusion abnormalities are identified to suggest an acute or subacute infarct. No mass effect or midline shift is seen. There is mild commensurate prominence of the ventricles and sulci. There are a few scattered foci of hyperintense T2 and FLAIR signal in the periventricular subcortical white matter, most consistent with mild chronic microvascular ischemic changes. No extra-axial fluid collections are seen. The brainstem appears normal. On postcontrast imaging, there is no abnormal parenchymal or leptomeningeal enhancement. No pathologic magnetic susceptibility artifact is identified on the gradient refocused acquisition. There are 3 small lymph nodes in the left parotid gland measuring up to 0.7 cm, and there is also a lymph node in the deep parotid region on the left measuring 1.6 cm. The previously described lymph nodes in the right parotid gland are not appreciated on this study. The cerebellar tonsils have normal contour and position, and the craniocervical junction appears normal. Marrow signal and midline structures are normal. The major intracranial flow-voids at the level of the [place] are preserved. The dural venous sinus flow-voids are maintained. The mastoid air cells are well-aerated. There is mild mucoperiosteal thickening in the ethmoid sinuses bilaterally. MR/MR head/brain wo/w con IMPRESSION: 1. There are no acute bleeds or infarcts. There are no masses or areas of abnormal enhancement. 2. There are mild chronic microvascular ischemic changes and there is diffuse volume loss. 3. There are lymph nodes in the left parotid gland as described above, including the deep lobe. Recommend follow-up CT scan of the neck with contrast.
--- NOTE | ~2023-09-15 | CT_ITS ---
EXAMINATION: CT HEAD WITHOUT CONTRAST CLINICAL INFORMATION: Changes in mental status COMPARISON: None available. TECHNIQUE: Contiguous axial imaging was performed from the skull base to vertex without intravenous administration of contrast. This CT examination was performed using dose optimization techniques as appropriate, variously including the following: *Automated exposure control *Adjustment of mA and/or kV according to patient size (this includes techniques or standardized protocols for targeted exams where dose is matched to indication/reason for exam; i.e. extremities or head) *Use of iterative reconstruction technique DLP: 558 mGy-cm FINDINGS: Mild prominence to the sulci and ventricles. No intra or extra-axial fluid collection or hemorrhage, mass, or mass effect. Calvarium intact. Mild mucoperiosteal thickening seen within the ethmoid sinuses. CT/CT head/brain wo IV con IMPRESSION: No acute findings. No acute intracranial pathology.
--- NOTE | ~2023-09-15 | CT_ITS ---
EXAMINATION: CT SOFT TISSUE NECK WITH CONTRAST CLINICAL INFORMATION: Lymph nodes on MRI COMPARISON: MR brain 09/16/2023 TECHNIQUE: Following the administration of 60 mL of Omnipaque 350 intravenous contrast, helical imaging was performed in the axial plane with generation of coronal and sagittal reformatted images. This CT examination was performed using dose optimization techniques as appropriate, variously including the following: *Automated exposure control. *Adjustment of mA and/or kV according to patient size (this includes techniques or standardized protocols for targeted exams where dose is matched to indication/reason for exam; i.e. extremities or head). *Use of iterative reconstruction technique. DLP: 353 mGy-cm. FINDINGS: Nasopharynx/Skull Base: The fat planes at the skull base and the soft tissues of the nasopharynx are within normal limits. The paranasal sinuses are well-aerated. Underpneumatized mastoid air cells. Suprahyoid Neck: Asymmetric prominence of the left lingual tonsil partially filling the left vallecula. Left palatine tonsillolith. The patient is edentulous. Suspected postprocedural changes along the right parotid gland. There are the L5 rounded enhancing lesions in left parotid gland, the largest of which measures up to 1 cm in maximal transverse diameter. Infrahyoid Neck: The hypopharynx, larynx, and proximal subglottic airway are within normal limits. Thyroid: Atrophic thyroid gland. Nodes: No significant cervical lymph nodes by CT size criteria. Lung Apices: Scattered bilateral pulmonary nodules measuring up to 3 mm. Calcified nodule in the right upper lobe. Vascular Structures:Atherosclerosis at the bilateral carotid bulbs with up to 50% luminal narrowing on the left. Osseous Structures: Multilevel degenerative changes of the cervical spine. Other Findings: Limited intracranial evaluation is within normal limits. CT/CT soft tissue neck w IV con IMPRESSION: There are 5 enhancing nodules in the left parotid gland, the largest of which measures up to 1 cm. Findings are indeterminate and may represent intraparotid lymph nodes with primary parotid neoplasm not entirely excluded. Attention on follow-up is recommended to monitor stability. Otherwise, no significant cervical lymph nodes by CT size criteria. Atherosclerosis of the carotid bulbs and proximal internal carotid arteries with up to 50% luminal narrowing on the left. Correlation with carotid ultrasound is recommended. Scattered lung nodules measuring up to 3 mm. Per the 2017 revised Fleischner Society guidelines, in low-risk patients no routine follow-up is necessarily required. In patients at high-risk for pulmonary neoplasm, recommend consideration of follow-up CT at 12 months to demonstrate nodule stability.
--- NOTE | 2023-09-15 07:20 | ED_ITS ---
HPI - Weakness General Chief complaint: Weakness Stated complaint: confused Time Seen by Provider: 09/15/23 06:58 Source: patient, EMS and old records reviewed Mode of arrival: EMS Limitations: no limitations History of Present Illness ED Provider: DOMENICO BARAHONA Narrative: 72 yo female with PMH of anxiety, cognitive impairment, celiac, osteoporosis, hypothyroidism, anemia, HTN here with c/o 1.5 months of change in behaviors, confusion, shaking episodes where she cannot walk - the family has seen [facility] ED but they discharged her had negative CT head, PCP who now has referred her to Dr. Enriquez. The patient has no hx of med changes or ETOH use. Her sister started to have dementia in her 70s. The patient has no formal dx. Today she vomited this AM which has been happening for a long time about 3 times a week so she was scheduled for endoscopy today in [place] - but they didn't go. After she vomited today she became more weak and has been having more episodes. MD Complaint: generalized weakness, focal weakness, lack of energy and difficulty walking Onset (ago): month(s) (1.5) Duration: intermittent Location: generalized Migration: none Severity: moderate Relieving factors: none Exacerbating factors: morning, movement and exertion Associated symptoms: confusion Related Data Home Medications ?Medication ?Instructions ?Recorded ?Confirmed omeprazole 20 mg capsule,delayed 20 mg PO DAILY 09/15/23 09/15/23 release Previous Rx's ?Medication ?Instructions ?Recorded lisinopril 20 mg tablet 20 mg PO DAILY 90 days #90 tabs 07/15/22 cholecalciferol (vitamin D3) 50 50 mcg PO DAILY 90 days #90 caps 11/18/22 mcg (2,000 unit) capsule mecobalamin (vitamin B12) 1,000 1,000 mcg sublingual DAILY 90 days 11/18/22 mcg disintegrating #90 tabs tablet,sublingual simvastatin 40 mg tablet 40 mg PO BEDTIME 90 days #90 tabs 11/18/22 polyethylene glycol 3350 17 17 g PO DAILY constipation #119 07/17/23 gram/dose oral powder (Miralax) grams aspirin 81 mg tablet,delayed 81 mg PO DAILY 90 days #90 tabs 09/02/23 release levothyroxine 75 mcg tablet 75 mcg PO DAILY 90 days #90 tabs 09/02/23 sertraline 25 mg tablet 25 mg PO DAILY 90 days #90 tabs 09/02/23 Allergies Allergy/AdvReac Type Severity Reaction Status Date / Time No Known Allergies Allergy Verified 09/15/23 07:09 Review of Systems 2 Review of Systems: Constitutional : No Fever, No Chills ENT/Mouth : No Ear Pain, No Nasal Congestion, No sore throat Eyes: No Eye Pain, No Swelling, No Redness Cardiovascular : No Chest Pain, No SOB Respiratory : No Cough, No Sputum, No Dyspnea Gastrointestinal : No Nausea, No Vomiting, No Diarrhea, No Hematochezia, No Melena Genitourinary : No Dysuria, No Urinary Frequency, No Hematuria Musculoskeletal : No Myalgias Skin : No Skin Lesions, No rash Neuro : pos Weakness, No Numbness, No Paresthesias, No Dizziness, No Headache, pos confusion Psych : positive Anxiety, no Depression, no SI/HI All other systems reviewed and are negative [facility] Past Medical History Attestation statement: The following information was validated with the patient. Source: old records reviewed Medical History Anxiety Celiac disease Vitamin D deficiency Osteoporosis Allergic rhinitis Pernicious anemia Acquired hypothyroidism Pure hypercholesterolemia Impaired fasting glucose Benign essential hypertension Surgical History History of excision of mass Family History Family History Father No problems noted. Mother No problems noted. Social History Social History Housing: House Alcohol intake: current Alcohol intake frequency: holidays/special occasions only Patient Tobacco Use Status: Current everyday Tobacco user Cigarettes Per Day: 6 Smoked in Last 30 Days: Yes e-Cigarette/Vaping Use: Never Used Second Hand Smoke Exposure: Yes Use of substances other than those prescribed or required for medical reasons: No Advance Directives: Yes Advance Directives Information Provided: Yes Advance Directives on File: No Do you have a plan to hurt others: No Plan service: No Current occupational status: retired Cognitive needs: No Hearing needs: No Vision needs: No Physical Exam 2 Vital Signs: Vital Signs: Last Vital Signs Temp 97.6 F 09/15/23 13:41 Pulse 73 09/15/23 13:41 Resp 16 09/15/23 13:41 BP 121/69 09/15/23 13:41 Pulse Ox 96 09/15/23 13:41 O2 Del Method Room Air 09/15/23 13:41 BMI result Body Mass Index 23.8 Appearance: Alert. Oriented X3. No acute distress. intermittent episodes of crying then grabbing blankets and deep breathing, patient was much more calm and appropriate prior to family coming in Eyes: Pupils equal, round and reactive to light. ENT: Pharynx normal. Neck: Normal inspection. Neck supple. CVS: Normal heart rate and rhythm. Pulses normal. Respiratory: No respiratory distress. Breath sounds normal. Abdomen: Soft and nontender. Skin: Skin warm and dry. Normal skin color. Normal skin turgor. Extremities: No lower extremity edema. No calf ttp Neuro: Oriented X 3. No motor deficit. No sensory deficit. she needs intermittent prompting to do neuro exam then has hard time following directions. Gait is unsteady she needs two people shakes and is very anxious walks on her toes and needs to be told how to walk by family . clonus noted both legs inducible then she will have intermittent shaking of LE that comes and goes at times Course Course Course Narrative: the family is very upset I am not sure what experiences they have had so far with prior medical workups in regards to the mother but the daughter came into the room and demanded the mom be admitted before I could get a history, the is a poor historian himself. They are both clearly tired and overwhelmed. I have tried to reassure them and have explained the steps taken so far. The RN and I have assured them we are doing the best we can will continue to offer support in a labile situation. It is understandable they want to care for their family member. Reevaluation(s) Reevaluation #1: urine appears contaminated but waiting on culture will dose x 1 with ceftriaxone - no wbc count no signs of sepsis change in mental status is not new Medications Administered Discontinued Medications Generic Name Dose Route Start Last Admin Trade Name Freq PRN Reason Stop Dose Admin Sodium Chloride 500 mls @ 500 mls/hr 09/15/23 07:09 09/15/23 08:30 Ns IV 09/15/23 08:08 Infused .Q1H ONE Infusion Ceftriaxone Sodium 1 gm/ 50 mls @ 100 mls/hr 09/15/23 10:53 09/15/23 11:51 Sodium Chloride IV 09/15/23 11:22 Infused ONCE ONE Infusion Medical Decision Making Medical Decision Making MDM Narrative: 72 yo female with PMH of anxiety, cognitive impairment, celiac, osteoporosis, hypothyroidism, anemia, HTN here with c/o these episodes of shaking then she cannot walk then grabs her chest, memory issues, confusion and then AM vomiting - her family is overwhelmed and distraught they note about 1 month of this that is getting worse. They have an upcoming appointment with Mina but not for a while at this time I am going to obtain repeat CT head in case there was stroke labs, UA, will attempt to reach Neurology to see if they will eval her while in ED. It seems more neuropsych. She does have a sister who has dementia as well that started in her 70s Differential Diagnosis Differential Diagnoses: The differential diagnosis associated with the presentation includes dementia, anxiety, stroke Admission/Observation Consideration of admission/observation: Escalation of care including admission/observation considered physician observation started at 1134am pending neurology and psych input observation care revealed that the patient does meet meet necessity for hospitalization. final disposition discussed with the patient. The patient completed observation care at 330pm. Total time in observation care was 4 hours. Consult Healthcare Provider Management of the patient was discussed with: Hospitalist (will admit) and Assistant Athletic Trainer Opal romero recommend neuro consult Lab Data [facility] Lab Attestation statement: I reviewed the patient's lab results. 09/15/23 07:36 09/15/23 07:36 Labs: Lab Results 09/15/23 09/15/23 09/15/23 Range/Units 07:36 07:59 09:11 WBC 5.8 (4.8-10.8) X10*3/uL RBC 4.06 L (4.20-5.50) X10*6/uL Hgb 13.4 (12.0-16.0) g/dl Hct 36.9 L (37.0-47.0) % MCV 90.9 (80.0-98.0) fL MCH 33.0 (27.0-33.0) pg MCHC 36.3 H (31.0-35.0) g/dl RDW 12.6 (11.0-16.0) % Plt Count 193 (160-400) X10*3/uL MPV 9.4 (9.4-12.3) fL Immature Gran % (Auto) 0.0 (0.0-0.4) % Neut % (Auto) 60.6 (45-73) % Lymph % (Auto) 27.8 (20-40) % [place] % (Auto) 6.9 (2-11) % Eos % (Auto) 3.8 (0-4) % Baso % (Auto) 0.9 (0-2) % Lymph # (Auto) 1.6 (1.2-4.9) X10*3/uL [place] # (Auto) 0.4 (0.1-1.2) X10*3/uL Eos # (Auto) 0.2 (0.0-0.4) X10*3/uL Baso # (Auto) 0.1 (0.0-0.2) X10*3/uL Abs Immat Gran (auto) 0.00 (0.00-0.03) X10*3/uL Absolute Neuts (auto) 3.5 (2.0-8.3) x10*3/uL Absolute Nucleated RBC 0.000 (0.0-0.012) X10*3/uL Nucleated RBC % (auto) 0.0 (0.0-0.2) /100WBC ESR 8 (0-20) MM/HR Sodium 141 (135-145) mmol/L Potassium 3.6 (3.3-5.1) mmol/L Chloride 106 (96-108) mmol/L Carbon Dioxide 27 (22-29) mmol/L Anion Gap 12 (12-20) BUN 13 (9-16) mg/dL Creatinine 0.77 (0.5-1.4) mg/dL Estim Creat Clear Calc 53.0 Estimated GFR > 60 Random Glucose 115 (60-115) mg/dL Calcium 10.0 (8.4-10.2) mg/dL Magnesium 2.0 (1.6-2.6) mg/dL Total Bilirubin 0.7 (0.0-1.0) mg/dL Direct Bilirubin 0.2 (0.0-0.5) mg/dL AST 17 (5-31) U/L ALT 14 (0-31) U/L Alkaline Phosphatase 56 (39-117) U/L Ammonia 24 (13-55) umol/L Total Creatine Kinase 117 (26-140) U/L Troponin I High Sens 2.7 (<3.5-17.0) ng/L C-Reactive Protein < 0.04 (< or = 0.50) mg/dL Total Protein 6.5 (6.5-8.0) g/dL Albumin 4.1 (3.5-5.0) g/dL Lipase 18 (8-78) U/L Vitamin B12 678 (200-900) pg/mL Folate 3.4 L (> or = 4.0) ng/mL TSH 0.02 L (0.32-4.0) uIU/mL Free T4 1.12 (0.71-1.85) ng/dL Urine Color Yellow Urine Appearance Cloudy Urine pH 6.0 (5.0-9.0) Ur Specific [place] 1.010 (1.005-1.025) Urine Protein Negative (Neg-Trace) mg/dL Urine Glucose (UA) Negative (Negative) mg/dL Urine Ketones Negative (Negative) mg/dL Urine Blood Negative (Negative) Urine Nitrite Negative (Negative) Ur Leukocyte Esterase Large (3+) H (Negative) Urine RBC 0-2 (0-2) /HPF Urine WBC 21-50 H (0-5) /HPF Ur Squamous Epith Cells >20 (0-2) /HPF Urine Bacteria 4+ (None Seen) Hyaline Casts 0-2 (0-2) /LPF T.pallidum Ab (EIA) Nonreactive (Nonreactive) Independent Interpretation I performed an independent interpretation of an: EKG, Plain X-Ray (normal ) and CT Scan (no acute findings) Interpretation: Rate: 64 Rhythm: NSR [place]: normal Normal P waves. Normal ROBBY. Normal QRS complex. ST T wave : normal no SANDY qTC: 437 prior studies: no acute ischemia The study has been interpreted contemporaneously by me. . Radiology Impression Discussion of test interpretation with radiology: I have reviewed the radiologist's reading. Independent Historian Clinical information obtained from an independent historian. History obtained from or confirmed by: Spouse, EMS and Other (daughter) External Record Review External record reviewed: Inpatient record Discharge Plan Discharge Clinical Impression: Memory changes, Impaired gait, Clonus Patient Disposition: Admitted As Inpatient Prescriptions: No Action omeprazole 20 mg Capsule,Delayed Release(Dr/Ec) 20 mg PO DAILY sertraline 25 mg tablet 25 mg PO DAILY 90 Days Qty: 90 1RF aspirin 81 mg tablet,delayed release (DR/EC) 81 mg PO DAILY 90 Days Qty: 90 3RF levothyroxine 75 mcg tablet 75 mcg PO DAILY 90 Days Qty: 90 3RF lisinopril 20 mg tablet 20 mg PO DAILY 90 Days Qty: 90 3RF simvastatin 40 mg tablet 40 mg PO BEDTIME 90 Days Qty: 90 3RF mecobalamin (vitamin B12) 1,000 mcg tablet,disintegrating 1,000 mcg sublingual DAILY 90 Days Qty: 90 3RF Rx Instructions: place tablet under tongue and allow to dissolve for at least 30 secs before swallowing cholecalciferol (vitamin D3) 50 mcg (2,000 unit) capsule 50 mcg PO DAILY 90 Days Qty: 90 3RF polyethylene glycol 3350 [Miralax] 17 gram/dose powder 17 g PO DAILY Qty: 119 0RF Print Language: Telugu
[2023-09-15] MEDS: 0.9 % Sodium Chloride 500 ML IV (07:30)
--- NOTE | 2023-09-15 07:30 | PC.NURSE ---
pt biba from home d/t concerns of increase in weakness/confusion by family. pt has a hx of cognitive impairment. pt's family members state that pt seemingly more confused/agitated/unable to follow commands appropriately/mixing up family members names. pt's family verbalizing increase in sx a a few weeks and some time. upin EMS arrival - pt has no acute complaints aside from feeling weak and having difficulty walking. denies pain. 18gIV placed by EMS in the left AC. no sob/wob noted. respirations even/unlabored. plan of care ongoing. call valenzuela placed within reach.
[2023-09-15 07:42] LABS: MANUAL DIFF FLAG NO
[2023-09-15 07:44] LABS: Basophils Absolute Auto 0.1 X10*3/uL (0.0-0.2); Basophils Percent Auto 0.9 % (0-2); Eosinophils Absolute Auto 0.2 X10*3/uL (0.0-0.4); Eosinophils Percent Auto 3.8 % (0-4); Hematocrit 36.9 % (37.0-47.0); Hemoglobin 13.4 g/dl (12.0-16.0); Lymphocytes Absolute Auto 1.6 X10*3/uL (1.2-4.9); Lymphocytes Percent Auto 27.8 % (20-40); Mean Corpuscular HGB Conc 36.3 g/dl (31.0-35.0); Mean Corpuscular Volume 90.9 fL (80.0-98.0); Mean Platelet Volume 9.4 fL (9.4-12.3); Monocytes Absolute Auto 0.4 X10*3/uL (0.1-1.2); Monocytes Percent Auto 6.9 % (2-11); Neutrophils Absolute Auto 3.5 x10*3/uL (2.0-8.3); Neutrophils Percent Auto 60.6 % (45-73); Platelet Count 193 X10*3/uL (160-400); Red Blood Count 4.06 X10*6/uL (4.20-5.50); Red Cell Distribution Width 12.6 % (11.0-16.0); White Blood Count 5.8 X10*3/uL (4.8-10.8)
[2023-09-15 07:54] LABS: Ammonia 24 umol/L (13-55)
[2023-09-15 08:06] LABS: Alanine Aminotransferase 14 U/L (0-31); Albumin Level 4.1 g/dL (3.5-5.0); Alkaline Phosphatase 56 U/L (39-117); Anion Gap 12 (12-20); Aspartate Amino Transferase 17 U/L (5-31); Bilirubin Direct 0.2 mg/dL (0.0-0.5); Bilirubin Total 0.7 mg/dL (0.0-1.0); Blood Urea Nitrogen 13 mg/dL (9-16); C Reactive Protein < 0.04 mg/dL (< or = 0.50); Carbon Dioxide 27 mmol/L (22-29); Chloride 106 mmol/L (96-108); Estimated Glomerular Filt Rate > 60; Glucose Random 115 mg/dL (60-115); Lipase 18 U/L (8-78); Potassium 3.6 mmol/L (3.3-5.1); Sodium 141 mmol/L (135-145); Total Protein 6.5 g/dL (6.5-8.0)
[2023-09-15 08:12] LABS: Troponin-I High Sensitivity 2.7 ng/L (<3.5-17.0)
--- NOTE | 2023-09-15 08:17 | PC.NURSE ---
pt to CT at this time.
[2023-09-15 08:27] LABS: TSH reflex Free T4 0.02 uIU/mL (0.32-4.0)
[2023-09-15 08:44] LABS: Syphilis Screen Nonreactive (Nonreactive)
[2023-09-15 08:46] LABS: Erythrocyte Sedimentation Rate 8 MM/HR (0-20)
--- NOTE | 2023-09-15 08:47 | PC.NURSE ---
xray completed at this time.
[2023-09-15 08:55] LABS: Folate 3.4 ng/mL (> or = 4.0); Vitamin B12 678 pg/mL (200-900)
[2023-09-15 09:17] LABS: Free T4 (Free Thyroxine) 1.12 ng/dL (0.71-1.85)
--- NOTE | 2023-09-15 09:18 | PC.NURSE ---
urine obtained/sent to lab.
[2023-09-15 09:20] LABS: Appearance Urine Cloudy; Color Urine Yellow; Glucose Urine UA Negative (Negative); Leukocyte Esterase Urine Large (3+) (Negative); Nitrite Urine Negative (Negative); UMIC TRIGGER UACC YES; Urine Blood Negative (Negative); Urine Ketones Negative (Negative); Urine Protein Negative (Neg-Trace)
[2023-09-15 09:25] LABS: Bacteria Urine 4+ (None Seen); Hyaline Casts Urine 0-2 /LPF (0-2); RBC Urine 0-2 /HPF (0-2); Squamous Epithelial Cell Urine >20 /HPF (0-2); UACC Culture Trigger YES; WBC Urine 21-50 /HPF (0-5)
[2023-09-15] MEDS: cefTRIAXone sodium 1 GM in 0.9 % Sodium Chloride 50 ML IV (11:21)
--- NOTE | 2023-09-15 14:00 | PC.NURSE ---
Pt transferred over to [facility], this RN assumed care. Family at bedside. Pt is alert and oriented, breathing even and unlabored, skin warm and dry. Family brought in pt due to concerns of worsening general weakness, confusion, gait issues and shaking in the hands/arms for past couple of days. Pt has had similar episodes in past per family that have resolved. Denies any pain, fevers, N/V/D, cough, recent illnesses or falls. Pt neg for unilateral weakness, slurred speech, facial droop. Tremor noted in hands.
--- NOTE | 2023-09-15 14:14 | PC.NURSE ---
Med rec done by this RN using patient and spouse information, Spouse had list with all pts meds.
--- NOTE | 2023-09-15 14:29 | PC.NURSE ---
Swallow screen done, pt has no issues swallowing. Neg for SOB, cough or any difficulties. Celiac diet order placed per MD.
--- NOTE | 2023-09-15 14:55 | PM.NEUROCN ---
History of Present Illness Data of Consult Service Date: 09/15/23 Primary Care Provider: Anurag Ren MD HPI Reason for consult: Worsening dementia This is a 72 yo female with PMH of anxiety, cognitive impairment, celiac, osteoporosis, hypothyroidism, anemia, HTN here with c/o 1.5 months of change in behaviors, confusion, shaking episodes where she cannot walk. Her legs get rubbery when she is walking. She's had 3 UTIs in the last 4-6 weeks. - the family has seen [facility] ED but they discharged her had negative CT head, PCP who now has referred her to Dr. Enriquez. The patient has no hx of med changes or ETOH use. Her sister started to have dementia in her 70s. The patient has no formal dx. Today she vomited this AM which has been happening for a long time about 3 times a week so she was scheduled for endoscopy today in [place] - but they didn't go. After she vomited today she became more weak and has been having more episodes. MD Complaint: generalized weakness, focal weakness, lack of energy and difficulty walking. Labs unremarkable. UTI on urinalysis. [facility] Past Medical History Medical History Anxiety Celiac disease Vitamin D deficiency Osteoporosis Allergic rhinitis Pernicious anemia Acquired hypothyroidism Pure hypercholesterolemia Impaired fasting glucose Benign essential hypertension Family History Family History Father No problems noted. Mother No problems noted. Surgical History Surgical History History of excision of mass Social History Social History Housing: House Alcohol intake: current Alcohol intake frequency: holidays/special occasions only Patient Tobacco Use Status: Current everyday Tobacco user Cigarettes Per Day: 6 Smoked in Last 30 Days: Yes e-Cigarette/Vaping Use: Never Used Second Hand Smoke Exposure: Yes Use of substances other than those prescribed or required for medical reasons: No Advance Directives: Yes Advance Directives Information Provided: Yes Advance Directives on File: No Do you have a plan to hurt others: No Plan service: No Current occupational status: retired Cognitive needs: No Hearing needs: No Vision needs: No Meds Allergies Allergy/AdvReac Type Severity Reaction Status Date / Time No Known Allergies Allergy Verified 09/15/23 07:09 Home Medications ?Medication ?Instructions ?Recorded ?Confirmed ?Last Taken ?Type omeprazole 20 mg capsule,delayed 20 mg PO DAILY 09/15/23 09/15/23 Unknown History release Physical Exam Vital Signs: Vital Signs: Last Vital Signs Temp 97.6 F 09/15/23 13:41 Pulse 73 09/15/23 13:41 Resp 16 09/15/23 13:41 BP 121/69 09/15/23 13:41 Pulse Ox 96 09/15/23 13:41 O2 Del Method Room Air 09/15/23 13:41 BMI result Body Mass Index 23.8 Neuro: Other: She's alert, pleasant and cooperative, smiling and responding appropriately. She's oriented x3. She is able to subtract 7 from 100. She gives me the list of all of her medications and the schedule of taking it throughout the day. Cranial nerves II through XII are normal. Muscle tone and strength are normal in all 4 extremities. There is no asterixis. Plantar response are flexor. Neck is supple. Results Labs 09/15/23 07:36 09/15/23 07:36 Labs: Short CBC 09/15/23 Range/Units 07:36 WBC 5.8 (4.8-10.8) X10*3/uL Hgb 13.4 (12.0-16.0) g/dl Hct 36.9 L (37.0-47.0) % Plt Count 193 (160-400) X10*3/uL BMP 09/15/23 07:36 Sodium 141 Potassium 3.6 Chloride 106 Carbon Dioxide 27 BUN 13 Creatinine 0.77 Calcium 10.0 Cardiac Enzymes 09/15/23 Range/Units 07:36 Total Creatine Kinase 117 (26-140) U/L Liver Function 09/15/23 Range/Units 07:36 Total Bilirubin 0.7 (0.0-1.0) mg/dL Direct Bilirubin 0.2 (0.0-0.5) mg/dL AST 17 (5-31) U/L ALT 14 (0-31) U/L Alkaline Phosphatase 56 (39-117) U/L Albumin 4.1 (3.5-5.0) g/dL Urine 09/15/23 Range/Units 09:11 Urine Color Yellow Urine Appearance Cloudy Urine pH 6.0 (5.0-9.0) Ur Specific [place] 1.010 (1.005-1.025) Urine Protein Negative (Neg-Trace) mg/dL Urine Glucose (UA) Negative (Negative) mg/dL Assessment and Plan (1) Cognitive and behavioral changes: Status: Acute Mental status change appears to be related to urinary tract infection. I do not believe that she has a dementing illness. Recommendations hydration. Treatment of UTI. Folic acid 1 mg a day. EEG. I don't see any need for an MRI at this time. (2) Impaired gait: Status: Acute A gait impairment appears to be her going blank when she is trying to walk in her legs getting rubbery that suggest cerebral hypoperfusion. It is possible that she has significant orthostatic hypotension related to blood pressure medicine dehydration and UTI. Recommendation check for orthostatic hypotension. Procedures Date of Service Date of Service: 09/15/23
--- NOTE | 2023-09-15 15:31 | MHC.EDTECH ---
performed orthostatic vital signs on the pt, laying, sitting and standing, explained the procedure prior, pt tolerated well
--- NOTE | 2023-09-15 16:07 | P.HPHOSP_ITS ---
History of Present Illness Date of Service: 09/15/23 Attending physician on admission: Varun Nugent Chief Complaint: confusion, gait instability, tremors 72 yo female with PMH of anxiety, cognitive impairment, celiac, osteoporosis, hypothyroidism, anemia, HTN here with c/o 1.5 months of change in behaviors, confusion, shaking episodes where she cannot walk. She has also been diagnosed with anxiety and depression with onset of symptoms in the last 2 months, started on sertraline 25mg 1 week ago. The patient understands she is in the hospital due to gait issues and tremors but seems somewhat aloof. at bedside assists with history. He reports for about 2 months has had intermittent episodes where the patient is confused, for example attending [employer] game and asking to leave as if the game is over when it is not. She is also not engaging in activities which were typically part of normal routine such as painting and gardening. Her entire body will become tremulous and she will complain of nausea with dry heaves. During these periods she will require 1-2 person assist to standing with very unsteady gait secondary to tremors. These episodes would last for about 20 minutes to one hour before resolving. They had been occurring every 4 days but are now much more frequent occurring at least daily. She was seen at urgent care twice in july and diagnosed with UTI x 2 and treated with macrobid, however UA only scantly positive with question of contamination and no cultures performed. Antibiotic therapy did not result in symptom resolution. No tick bites, recent travel, fevers, chills, st, congestion, headache, abd pain, vomiting, diarrhea, dysuria, hematuria, urgency/frequency, sob. lightheadedness, syncope, palptiations, or chest pain. Today vitals have been stable since arrival. Hematology studies unremarkable. renal function and lytes normal. Vitamin b12 normal. Folic acid slightly low at 3.4. TSH 0.2, free T$ wnl. UA with 3+ leuks, positive urinary sediment, 4+ bacteria but significant squamous epitheal cells concerning for contamination. Lyme IGG/IGM pending. Treponema ab pending. head CT unremarkable, no acute intracranial abnormality. CXR unremarkable. She was scheduled for egd today to confirm diagnosis of celiac. Evaluated by psychiatry who did not feel symptoms consistent with dementia. REcommending EEG and MRI. Evaluated by neurology who was concerned for UTI, recommending EEG but also did not feel symptoms consistent with dementia. Orthostatic hypotension ruled out as recommended. Was recently evaluated at [facility] for these symptoms with unremarkable head CT. TSH at that time was undetectable with slightly elevated free T4 1.86, however again on recheck at today's visit, TSH 0.02 with normal free T4. Thiamine level evaluated at [facility] was within normal limits. In the ED, has been given 1 g IV ceftriaxone to empirically cover for any possible UTI. Review of Systems 2 Review of Systems: Yes all other systems are reviewed and are negative [facility] Medical History Anxiety Celiac disease Vitamin D deficiency Osteoporosis Allergic rhinitis Pernicious anemia Acquired hypothyroidism Pure hypercholesterolemia Impaired fasting glucose Benign essential hypertension Family History Father No problems noted. Mother No problems noted. Surgical History History of excision of mass Social History Housing: House Alcohol intake: current Alcohol intake frequency: holidays/special occasions only Patient Tobacco Use Status: Current everyday Tobacco user Cigarettes Per Day: 6 Smoked in Last 30 Days: Yes e-Cigarette/Vaping Use: Never Used Second Hand Smoke Exposure: Yes Use of substances other than those prescribed or required for medical reasons: No Advance Directives: Yes Advance Directives Information Provided: Yes Advance Directives on File: No Do you have a plan to hurt others: No Plan service: No Current occupational status: retired Cognitive needs: No Hearing needs: No Vision needs: No Meds Allergies Allergy/AdvReac Type Severity Reaction Status Date / Time No Known Allergies Allergy Verified 09/15/23 07:09 Home Medications ?Medication ?Instructions ?Recorded ?Confirmed ?Last Taken ?Type omeprazole 20 mg capsule,delayed 20 mg PO DAILY 09/15/23 09/15/23 Unknown History release Physical Exam 2 Vital Signs and Narrative: Vital Signs: Last Vital Signs Temp 97.6 F 09/15/23 13:41 Pulse 84 09/15/23 15:28 Resp 16 09/15/23 13:41 BP 146/68 H 09/15/23 15:28 Pulse Ox 96 09/15/23 13:41 O2 Del Method Room Air 09/15/23 13:41 BMI result Body Mass Index 23.8 Constitutional - Awake and Alert, No apparent distress Eyes - PERRLA, EOMI. No Domingo-Randal ring Cardiovascular - S1S2, RRR, No edema Respiratory - Normal lung expansion, Normal respiratory effort, No respiratory distress, CTA bilaterally Gastrointestinal - NT / ND; +BS; No rebound or guarding Extremities - no calf tenderness bilaterally, no swelling Skin - Warm/Dry Neurological - Alert & oriented x3, but soomewhat aloof. CN II-XII in tact, 5/5 strength BUE and BLE, normal [id number] testing and [id number] testing. ankle clonus noted bilaterally Results Labs 09/15/23 07:36 09/15/23 07:36 Labs: Laboratory Results - last 24 hr 09/15/23 09/15/23 09/15/23 07:36 07:59 09:11 MCV 90.9 MCH 33.0 MCHC 36.3 H RDW 12.6 Plt Count 193 MPV 9.4 Immature Gran % (Auto) 0.0 Neut % (Auto) 60.6 Lymph % (Auto) 27.8 [place] % (Auto) 6.9 Eos % (Auto) 3.8 Baso % (Auto) 0.9 Lymph # (Auto) 1.6 [place] # (Auto) 0.4 Eos # (Auto) 0.2 Baso # (Auto) 0.1 Abs Immat Gran (auto) 0.00 Absolute Neuts (auto) 3.5 Absolute Nucleated RBC 0.000 Nucleated RBC % (auto) 0.0 ESR 8 Anion Gap 12 Estim Creat Clear Calc 53.0 Estimated GFR > 60 Random Glucose 115 Calcium 10.0 Magnesium 2.0 Total Bilirubin 0.7 Direct Bilirubin 0.2 AST 17 ALT 14 Alkaline Phosphatase 56 Ammonia 24 Total Creatine Kinase 117 Troponin I High Sens 2.7 C-Reactive Protein < 0.04 Total Protein 6.5 Albumin 4.1 Lipase 18 Vitamin B12 678 Folate 3.4 L TSH 0.02 L Free T4 1.12 Urine Color Yellow Urine Appearance Cloudy Urine pH 6.0 Ur Specific [place] 1.010 Urine Protein Negative Urine Glucose (UA) Negative Urine Ketones Negative Urine Blood Negative Urine Nitrite Negative Ur Leukocyte Esterase Large (3+) H Urine RBC 0-2 Urine WBC 21-50 H Ur Squamous Epith Cells >20 Urine Bacteria 4+ Hyaline Casts 0-2 T.pallidum Ab (EIA) Nonreactive Imaging Radiologist's Impressions: Impressions Head CT 09/15/23 08:31 IMPRESSION: No acute findings. No acute intracranial pathology. Chest X-Ray 09/15/23 08:44 IMPRESSION: Unremarkable examination. Assessment and Plan (1) Clonus: Status: Acute (2) Impaired gait: Status: Acute (3) Anxiety: Status: Acute (4) Cognitive and behavioral changes: Status: Acute Plan 72 yo female with PMH of anxiety, cognitive impairment, celiac, osteoporosis, hypothyroidism, anemia, HTN here with c/o 1.5 months of change in behaviors, confusion, shaking episodes where she cannot walk. #Acute encephalopathy with gait disturbance and tremor- etiology unclear -cover with 1g IV ceftriaxone for possible UTI, so UA does appear contaminated and pt is asymptomatic. Follow cultures. No sepsis -hematology studies unremarkable, chemirstries negative for any metabolic derangement. -Folic acid slightly low, add 1mg daily folic acid. Last thiamine level 08/2023 at [facility] 72, WNL. Vitamin B12 WNL -Treponema ab pending. Lyme IGG/IGM pending -check ceruloplasmin, zinc, iron -TSH low but free t4 wnl. Check free t3 -Head ct essentially unremarkable except for mild prominence of the sulci and ventricles -Check MRI w/wo contrast -EEG ordered -Neurology input appreciated. Psychiatry input appreciated #Emotional lability/anxiety/depression -plan as above -continue sertraline #HTN -continue lisinopril #Hypothyroidism -continue levothyroxine #GERD -pppi #HLD -statin DVT prophylaxis- lovenox full code pt requires inpt stat at least 2 midnights for management of acute encephalopathy with gait disturbance and tremor of unclear etiology requiring further treatment with IV antibiotics until UTI can be definitively ruled out as well as additional lab and neurological studies for further investigation to etiology with expert consultation Quality Stroke Does the patient have a stroke diagnosis?: No VTE Prior VTE?: No VTE Risk Level:: Medical - moderate - high VTE Device Contraindication: Treatment Not Indicated VTE Drug Contraindication: N/A - Med Ordered
--- NOTE | 2023-09-15 16:12 | PHA.MEDREC ---
Pharmacy Consult ? Medication Reconciliation Pharmacy has completed the medication reconciliation.Med rec complete, reviewed by pharmacy.
[2023-09-15] MEDS: Enoxaparin Sodium 40 MG/0.4 ML SYRINGE SUBCUT (18:39)
[2023-09-15 19:05] LABS: Iron 68 mcg/dL (30-160); Percent Iron Saturation 25 % (15-50); Total Iron Binding Capacity 271 mcg/dL (228-428); Unsaturated Iron Binding 203 ug/dL
[2023-09-15] MEDS: Atorvastatin Calcium 20 MG TABLET PO (20:18)
[2023-09-15] MEDS: Melatonin 3 MG TABLET 6 MG PO (20:18)
--- NOTE | 2023-09-15 21:25 | PC.NURSE ---
Addendum entered by Gabriela Purcell RN 09/16/23 05:53: patient brought AM medication when phlebotomy came to draw blood. Patient took medications whole with water without difficulty, patient vitals WNL. denies pain. patient going back to sleep. states all needs met, call valenzuela in reach. Addendum entered by Gabriela Purcell RN 09/16/23 02:33: patient sleeping, did not disturb. call valenzuela at bedside. Addendum entered by Gabriela Purcell RN 09/16/23 00:12: midnight vital signs not completed at patient's request. RN aware. Original Note: pt a&ox3, took pills whole with water. See head to assessment. patient asleep, requested not to be woken up overnight. all needs met, call valenzuela in reach.
--- NOTE | 2023-09-15 23:43 | MHC.EDTECH ---
This tech took over care of patient at 2300,hourly rounds completed,Patient asked RN not to wake her up for vitals if she was sleeping,resp,rate WNL,call valenzuela in reach
--- NOTE | 2023-09-16 | EEG_ITS ---
FINDINGS: Waking background activity consists of a low voltage posterior 7.5 to 8 hertz alpha frequency intermixed with moderate voltage theta of 18 to 20 hertz and muscle and eye movement artifacts anteriorly. Photic stimulation produces a prominent photic driving responses from the posterior quadrants. Hyperventilation was omitted. No paroxysmal features are identified. IMPRESSION: This EEG is considered minimally abnormal due to mild scattered slowing consistent with a mild encephalopathic process. No focal abnormalities or paroxysmal discharges are seen. MD JOSE D Obando/CROW / [id number]
--- NOTE | 2023-09-16 01:36 | MHC.EDTECH ---
Hourly rounds completed,patient is sleeping,bed alarm on for safety,call valenzuela in reach
[2023-09-16 03:48] VITALS: RESP 16
--- NOTE | 2023-09-16 03:49 | MHC.EDTECH ---
Hourly rounds completed,vitals not taken at this time per RN patient doesn't want to be woken up, call valenzuela in reach and bed alarm on for safety.
[2023-09-16] MEDS: Levothyroxine Sodium 75 MCG TABLET PO (05:13)
[2023-09-16] MEDS: Omeprazole 20 MG CAPSULE.DR PO (05:13)
[2023-09-16 05:22] LABS: MANUAL DIFF FLAG NO
[2023-09-16 05:24] LABS: Basophils Absolute Auto 0.1 X10*3/uL (0.0-0.2); Basophils Percent Auto 0.8 % (0-2); Eosinophils Absolute Auto 0.2 X10*3/uL (0.0-0.4); Eosinophils Percent Auto 3.7 % (0-4); Hematocrit 35.7 % (37.0-47.0); Imm Gran Abs Auto 0.02 X10*3/uL (0.00-0.03); Imm Gran Pct Auto 0.3 % (0.0-0.4); Lymphocytes Absolute Auto 1.9 X10*3/uL (1.2-4.9); Lymphocytes Percent Auto 31.6 % (20-40); Mean Corpuscular HGB Conc 36.4 g/dl (31.0-35.0); Mean Corpuscular Hemoglobin 32.7 pg (27.0-33.0); Mean Corpuscular Volume 89.7 fL (80.0-98.0); Mean Platelet Volume 9.5 fL (9.4-12.3); Monocytes Absolute Auto 0.4 X10*3/uL (0.1-1.2); Monocytes Percent Auto 5.8 % (2-11); Neutrophils Absolute Auto 3.5 x10*3/uL (2.0-8.3); Neutrophils Percent Auto 57.8 % (45-73); Platelet Count 194 X10*3/uL (160-400); Red Blood Count 3.98 X10*6/uL (4.20-5.50); Red Cell Distribution Width 12.5 % (11.0-16.0)
[2023-09-16 05:43] VITALS: BP 128/72; PULSE 84; RESP 16; TEMP 37.1; O2SAT 94
[2023-09-16 05:49] LABS: Anion Gap 12 (12-20); Blood Urea Nitrogen 11 mg/dL (9-16); Calcium 9.8 mg/dL (8.4-10.2); Carbon Dioxide 26 mmol/L (22-29); Chloride 106 mmol/L (96-108); Creatinine Clr Calc Pharmacy 54.4; Estimated Glomerular Filt Rate > 60; Glucose Random 107 mg/dL (60-115); Potassium 3.7 mmol/L (3.3-5.1); Sodium 140 mmol/L (135-145)
--- NOTE | 2023-09-16 07:00 | MHC.EDTECH ---
assisted patient to the bathroom. patient able to walk with a 1 assist.
[2023-09-16 07:54] LABS: Glucose, Whole Blood 122 mg/dL (60-115)
[2023-09-16 08:53] LABS: Lyme Abs Screen <0.90 index
[2023-09-16] MEDS: Cholecalciferol (Vitamin D3) 25 MCG TABLET 50 MCG PO (10:29)
[2023-09-16] MEDS: Folic Acid 1 MG TABLET PO (10:29)
[2023-09-16] MEDS: lisinopriL 20 MG TABLET PO (10:30)
[2023-09-16] MEDS: 0.9 % Sodium Chloride Flush 3 ML SYRINGE IVFLUSH ×2 (10:32→18:47)
[2023-09-16] MEDS: gadobutroL 7.5 ML VIAL IVPUSH (10:33)
[2023-09-16 10:54] VITALS: BP 124/65; PULSE 69; RESP 18; TEMP 36.6; O2SAT 94
[2023-09-16] MEDS: cefTRIAXone sodium 1 GM in 0.9 % Sodium Chloride 50 ML IV (10:54)
--- NOTE | 2023-09-16 12:06 | MHC.EDTECH ---
patient given lunch. eating at this time.
--- NOTE | 2023-09-16 12:56 | HO.PM.IMPN ---
Subjective Subjective Date of Service: 09/16/23 Interval History: no new complaints Physical Exam Vital Signs: Vital Signs: Last Vital Signs Temp 97.8 F 09/16/23 10:54 Pulse 69 09/16/23 10:54 Resp 18 09/16/23 10:54 BP 124/65 09/16/23 10:54 Pulse Ox 94 09/16/23 10:54 O2 Del Method Room Air 09/16/23 10:54 BMI result Body Mass Index 23.8 Constitutional - Awake and Alert, No apparent distress Eyes - PERRLA, EOMI. No Domingo-Randal ring Cardiovascular - S1S2, RRR, No edema Respiratory - Normal lung expansion, Normal respiratory effort, No respiratory distress, CTA bilaterally Gastrointestinal - NT / ND; +BS; No rebound or guarding Extremities - no calf tenderness bilaterally, no swelling Skin - Warm/Dry Neurological - Alert & oriented x3, but soomewhat aloof. CN II-XII in tact, 5/5 strength BUE and BLE, normal tgpemg-[id number]-dohr testing and uhcy-nv-[id number] testing. ankle clonus noted bilaterally Objective Data Active Medications Acetaminophen (Acetaminophen 325 Mg Tablet) 650 mg PO Q6H PRN PRN Reason: Pain, Mild (Pain Scale 1-3), fever or headache Atorvastatin Calcium (Atorvastatin Calcium 20 Mg Tablet) 20 mg PO BEDTIME [facility] Last Admin: 09/15/23 20:18 Dose: 20 mg Documented By: DARLENE Calcium Carbonate (Calcium Carbonate 750 Mg Tab.Chew) 750 mg PO Q4H PRN PRN Reason: Heartburn Enoxaparin Sodium (Enoxaparin Sodium 40 Mg/0.4 Ml Syringe) 40 mg SUBCUT Q24H [facility] Last Admin: 09/15/23 18:39 Dose: 40 mg Documented By: PARISH Folic Acid (Folic Acid 1 Mg Tablet) 1 mg PO DAILY [facility] Last Admin: 09/16/23 10:29 Dose: 1 mg Documented By: IMELDA Ceftriaxone Sodium 1 gm/ (Sodium Chloride) 50 mls @ 100 mls/hr IV Q24H [facility] Last Admin: 09/16/23 10:54 Dose: 100 mls/hr Documented By: IMELDA Levothyroxine Sodium (Levothyroxine Sodium 75 Mcg Tablet) 75 mcg PO DAILY@0600 [facility] Last Admin: 09/16/23 05:13 Dose: 75 mcg Documented By: DARLENE Lisinopril (Lisinopril 20 Mg Tablet) 20 mg PO DAILY [facility]; Protocol Last Admin: 09/16/23 10:30 Dose: 20 mg Documented By: IMELDA Magnesium Hydroxide (Milk Of Magnesia 30 Ml Oral.Susp) 30 ml PO DAILY PRN PRN Reason: Constipation Melatonin (Melatonin 3 Mg Tablet) 6 mg PO BEDTIME PRN PRN Reason: Insomnia Last Admin: 09/15/23 20:18 Dose: 6 mg Documented By: DARLENE Omeprazole (Omeprazole 20 Mg Capsule.Dr) 20 mg PO DAILY@0600 [facility] Last Admin: 09/16/23 05:13 Dose: 20 mg Documented By: DARLEEN Sertraline HCl (Sertraline Hcl 25 Mg Tablet) 25 mg PO DAILY [facility] Last Admin: 09/16/23 09:26 Dose: Not Given Documented By: IMELDA Non-Admin Reason: Patient Refused Sodium Chloride (0.9 % Sodium Chloride Flush 3 Ml Syringe) 3 ml IVFLUSH QSHIFT [facility] Last Admin: 09/16/23 10:32 Dose: 3 ml Documented By: IMELDA Vitamin D (Cholecalciferol (Vitamin D3) 25 Mcg Tablet) 50 mcg PO DAILY [facility] Last Admin: 09/16/23 10:29 Dose: 50 mcg Documented By: IMELDA Labs 09/16/23 05:12 09/16/23 05:12 Labs: Laboratory Results - last 24 hr 09/15/23 09/15/23 09/16/23 07:59 18:40 05:12 MCV 89.7 MCH 32.7 MCHC 36.4 H RDW 12.5 Plt Count 194 MPV 9.5 Immature Gran % (Auto) 0.3 Neut % (Auto) 57.8 Lymph % (Auto) 31.6 [place] % (Auto) 5.8 Eos % (Auto) 3.7 Baso % (Auto) 0.8 Lymph # (Auto) 1.9 [place] # (Auto) 0.4 Eos # (Auto) 0.2 Baso # (Auto) 0.1 Abs Immat Gran (auto) 0.02 Absolute Neuts (auto) 3.5 Absolute Nucleated RBC 0.000 Nucleated RBC % (auto) 0.0 Anion Gap 12 Estim Creat Clear Calc 54.4 Estimated GFR > 60 POC Glucose Random Glucose 107 Calcium 9.8 Iron 68 TIBC 271 % Saturation 25 Unsat Iron Binding 203 Lyme Screen IgG & IgM <0.90 Lyme Progressive Test TNP 09/16/23 07:48 MCV MCH MCHC RDW Plt Count MPV Immature Gran % (Auto) Neut % (Auto) Lymph % (Auto) [place] % (Auto) Eos % (Auto) Baso % (Auto) Lymph # (Auto) [place] # (Auto) Eos # (Auto) Baso # (Auto) Abs Immat Gran (auto) Absolute Neuts (auto) Absolute Nucleated RBC Nucleated RBC % (auto) Anion Gap Estim Creat Clear Calc Estimated GFR POC Glucose 122 H Random Glucose Calcium Iron TIBC % Saturation Unsat Iron Binding Lyme Screen IgG & IgM Lyme Progressive Test Microbiology Microbiology Results: Microbiology 09/15/23 Unknown Urine Culture - Final Urine clean catch - Clean Catch Midstream Assessment and Plan (1) Clonus: Status: Acute Plan 72F PMH anxiety, cognitive impairment, celiac disease, osteoporosis, hypothyroidism, anemia, hypertension presented with 1 and half months of changes in behavior, confusion, shaking episodes, gait instability Subacute encephalopathy with gait disturbance and tremor Follow-up MRI, EEG, troponinemia, Lyme, ceruloplasmin, zinc, iron Folic acid deficiency Replace Mood disorder Sertraline Hypertension Lisinopril Hypothyroid Synthroid DVT prophylaxis with Lovenox Full Code reason for continued hospitalization: Working on mental status changes Quality Stroke Does the patient have a stroke diagnosis?: No VTE Prior VTE?: No VTE Risk Level:: Medical - moderate - high VTE Device Contraindication: Treatment Not Indicated VTE Drug Contraindication: N/A - Med Ordered
[2023-09-16 17:45] VITALS: BP 101/62; PULSE 81; RESP 18; TEMP 36.7; O2SAT 94
[2023-09-16] MEDS: Enoxaparin Sodium 40 MG/0.4 ML SYRINGE SUBCUT (18:44)
--- NOTE | 2023-09-16 18:57 | PC.NURSE ---
Pt alert and oriented x4 VSS but states she is confused and is made anxious and frustrated by the confusion. She has short periods of agitation with shaking, pulling limbs inward and wringing hands with crying and gasping breaths. She responded to distraction and coaching. family at bedside most of day. Plan of care progressing.
[2023-09-16 20:00] VITALS: BP 109/61; PULSE 70; RESP 14; TEMP 36.7; O2SAT 95
[2023-09-16] MEDS: Atorvastatin Calcium 20 MG TABLET PO (20:34)
[2023-09-17] MEDS: Levothyroxine Sodium 75 MCG TABLET PO (05:10)
[2023-09-17] MEDS: Omeprazole 20 MG CAPSULE.DR PO (05:10)
[2023-09-17 05:24] VITALS: BP 116/60; PULSE 65; RESP 14; TEMP 36.5; O2SAT 97
[2023-09-17 06:12] LABS: Hematocrit 34.6 % (37.0-47.0); Hemoglobin 12.7 g/dl (12.0-16.0); Mean Corpuscular HGB Conc 36.7 g/dl (31.0-35.0); Mean Corpuscular Hemoglobin 32.9 pg (27.0-33.0); Mean Corpuscular Volume 89.6 fL (80.0-98.0); Mean Platelet Volume 9.5 fL (9.4-12.3); Platelet Count 194 X10*3/uL (160-400); Red Blood Count 3.86 X10*6/uL (4.20-5.50); Red Cell Distribution Width 12.6 % (11.0-16.0); White Blood Count 6.3 X10*3/uL (4.8-10.8)
[2023-09-17 06:26] LABS: Anion Gap 13 (12-20); Blood Urea Nitrogen 9 mg/dL (9-16); Calcium 9.3 mg/dL (8.4-10.2); Carbon Dioxide 25 mmol/L (22-29); Chloride 106 mmol/L (96-108); Creatinine Clr Calc Pharmacy 53.6; Estimated Glomerular Filt Rate > 60; Glucose Fasting 104 mg/dL (60-99); Sodium 140 mmol/L (135-145)
--- NOTE | 2023-09-17 08:04 | PC.NURSE ---
IV contrast consent form complete.
[2023-09-17 08:24] LABS: Triiodothyronine T3 Free 2.6 pg/mL (2.3-4.2)
--- NOTE | 2023-09-17 08:27 | PC.NURSE ---
Pt. off of the floor for her CT scan at this time.
[2023-09-17 08:41] VITALS: BP 154/68; PULSE 66; RESP 16; TEMP 36.2; O2SAT 93
--- NOTE | 2023-09-17 08:41 | PC.NURSE ---
Pt. returned from CT scan.
[2023-09-17 08:46] VITALS: BP 154/68
[2023-09-17] MEDS: Cholecalciferol (Vitamin D3) 25 MCG TABLET 50 MCG PO (08:46)
[2023-09-17] MEDS: Sertraline HCL 25 MG TABLET PO (08:46)
[2023-09-17] MEDS: lisinopriL 20 MG TABLET PO (08:46)
[2023-09-17] MEDS: Folic Acid 1 MG TABLET PO (08:46)
[2023-09-17] MEDS: iohexoL 350 MG/ML 100 ML INFUS..BTL IV (08:58)
--- NOTE | 2023-09-17 09:00 | MHC.CM.PN ---
CM SPOKE TO PTS , HIRAM [phone] HE REPORTS PT IS INDEPENDENT AT BASELINE AND USES NO DME HE IS UNSURE IF SHE HAS A HCP, BUT WILL SPEAK TO HER ABOUT IT TOMORROW AND IS AWARE CM CAN ASSIST PCP: RALPH MITCHELL DELIVERED DCP: HOME ? [facility] TO TRANSPORT
--- NOTE | 2023-09-17 10:45 | HO.PM.IMPN ---
Subjective Subjective Date of Service: 09/17/23 Interval History: feeling better Physical Exam Vital Signs: Vital Signs: Last Vital Signs Temp 97.2 F 09/17/23 08:41 Pulse 66 09/17/23 08:41 Resp 16 09/17/23 08:41 BP 154/68 H 09/17/23 08:46 Pulse Ox 93 09/17/23 08:41 O2 Del Method Room Air 09/17/23 08:41 BMI result Body Mass Index 23.8 Constitutional - Awake and Alert, No apparent distress Eyes - PERRLA, EOMI. No Domingo-Randal ring Cardiovascular - S1S2, RRR, No edema Respiratory - Normal lung expansion, Normal respiratory effort, No respiratory distress, CTA bilaterally Gastrointestinal - NT / ND; +BS; No rebound or guarding Extremities - no calf tenderness bilaterally, no swelling Skin - Warm/Dry Neurological - Alert & oriented x3, but soomewhat aloof. CN II-XII in tact, 5/5 strength BUE and BLE, normal nhofeq-fx-cxka testing and byvl-qa-odqh testing. ankle clonus noted bilaterally Objective Data Active Medications Acetaminophen (Acetaminophen 325 Mg Tablet) 650 mg PO Q6H PRN PRN Reason: Pain, Mild (Pain Scale 1-3), fever or headache Atorvastatin Calcium (Atorvastatin Calcium 20 Mg Tablet) 20 mg PO BEDTIME [facility] Last Admin: 09/16/23 20:34 Dose: 20 mg Documented By: SAGE Calcium Carbonate (Calcium Carbonate 750 Mg Tab.Chew) 750 mg PO Q4H PRN PRN Reason: Heartburn Enoxaparin Sodium (Enoxaparin Sodium 40 Mg/0.4 Ml Syringe) 40 mg SUBCUT Q24H [facility] Last Admin: 09/16/23 18:44 Dose: 40 mg Documented By: ADRIANO Folic Acid (Folic Acid 1 Mg Tablet) 1 mg PO DAILY [facility] Last Admin: 09/17/23 08:46 Dose: 1 mg Documented By: JOHANNA Ceftriaxone Sodium 1 gm/ (Sodium Chloride) 50 mls @ 100 mls/hr IV Q24H [facility] Last Infusion: 09/16/23 11:30 Dose: Infused Documented By: ADRIANO Levothyroxine Sodium (Levothyroxine Sodium 75 Mcg Tablet) 75 mcg PO DAILY@0600 [facility] Last Admin: 09/17/23 05:10 Dose: 75 mcg Documented By: SAGE Lisinopril (Lisinopril 20 Mg Tablet) 20 mg PO DAILY [facility]; Protocol Last Admin: 09/17/23 08:46 Dose: 20 mg Documented By: JOHANNA Magnesium Hydroxide (Milk Of Magnesia 30 Ml Oral.Susp) 30 ml PO DAILY PRN PRN Reason: Constipation Melatonin (Melatonin 3 Mg Tablet) 6 mg PO BEDTIME PRN PRN Reason: Insomnia Last Admin: 09/15/23 20:18 Dose: 6 mg Documented By: DARLENE Omeprazole (Omeprazole 20 Mg Capsule.) 20 mg PO DAILY@0600 [facility] Last Admin: 09/17/23 05:10 Dose: 20 mg Documented By: SAGE Sertraline HCl (Sertraline Hcl 25 Mg Tablet) 25 mg PO DAILY [facility] Last Admin: 09/17/23 08:46 Dose: 25 mg Documented By: JOHANNA Sodium Chloride (0.9 % Sodium Chloride Flush 3 Ml Syringe) 3 ml IVFLUSH QSHIFT [facility] Last Admin: 09/17/23 08:48 Dose: Not Given Documented By: JOHANNA Non-Admin Reason: Previously Administered Vitamin D (Cholecalciferol (Vitamin D3) 25 Mcg Tablet) 50 mcg PO DAILY [facility] Last Admin: 09/17/23 08:46 Dose: 50 mcg Documented By: JOHANNA Labs 09/17/23 05:54 09/17/23 05:54 Labs: Laboratory Results - last 24 hr 09/15/23 09/17/23 18:40 05:54 MCV 89.6 MCH 32.9 MCHC 36.7 H RDW 12.6 Plt Count 194 MPV 9.5 Absolute Nucleated RBC 0.000 Nucleated RBC % (auto) 0.0 Anion Gap 13 Estim Creat Clear Calc 53.6 Estimated GFR > 60 Fasting Glucose 104 H Calcium 9.3 Magnesium 2.0 Free T3 2.6 Microbiology Microbiology Results: Microbiology 09/15/23 Unknown Urine Culture - Final Urine clean catch - Clean Catch Midstream Assessment and Plan (1) Clonus: Status: Acute Plan 72F PMH anxiety, cognitive impairment, celiac disease, osteoporosis, hypothyroidism, anemia, hypertension presented with 1 and half months of changes in behavior, confusion, shaking episodes, gait instability Subacute encephalopathy with gait disturbance and tremor mri with mild chronic microvascular changes and diffuse volume loss, left parotid gland lumph nodes recommended ct neck EEG with mild slowing Lyme negative follow up ceruloplasmin, zinc, iron Folic acid deficiency Replacing Mood disorder Sertraline Hypertension Lisinopril Hypothyroid Synthroid DVT prophylaxis with Lovenox Full Code reason for continued hospitalization: Working up mental status changes Quality Stroke Does the patient have a stroke diagnosis?: No VTE Prior VTE?: No VTE Risk Level:: Medical - moderate - high VTE Device Contraindication: Treatment Not Indicated VTE Drug Contraindication: N/A - Med Ordered
[2023-09-17] MEDS: cefTRIAXone sodium 1 GM in 0.9 % Sodium Chloride 50 ML IV (11:32)
[2023-09-17 12:00] VITALS: BP 118/61; PULSE 73; RESP 18; TEMP 36.7; O2SAT 96
[2023-09-17 16:23] VITALS: BP 125/65; PULSE 75; RESP 18; TEMP 37; O2SAT 96
[2023-09-17] MEDS: Enoxaparin Sodium 40 MG/0.4 ML SYRINGE SUBCUT (17:06)
[2023-09-17 20:30] VITALS: BP 126/72; PULSE 70; RESP 17; TEMP 36.2; O2SAT 96
[2023-09-17] MEDS: Atorvastatin Calcium 20 MG TABLET PO (21:31)
[2023-09-17] MEDS: 0.9 % Sodium Chloride Flush 3 ML SYRINGE IVFLUSH (21:31)
[2023-09-18 06:12] VITALS: BP 140/69; PULSE 71; RESP 18; TEMP 36.4; O2SAT 97
[2023-09-18] MEDS: Omeprazole 20 MG CAPSULE.DR PO (06:17)
[2023-09-18] MEDS: Levothyroxine Sodium 75 MCG TABLET PO (06:17)
[2023-09-18 08:00] VITALS: BP 131/68; PULSE 72; RESP 16; TEMP 36.3; O2SAT 97
--- NOTE | 2023-09-18 08:25 | MHC.EDTECH ---
pt was assisted to the bathroom standby and was given personal hygiene to wash and had a complete bed change
--- NOTE | 2023-09-18 09:07 | MHC.EDTECH ---
pt ate 100% breafast
[2023-09-18] MEDS: lisinopriL 20 MG TABLET PO (09:10)
[2023-09-18] MEDS: 0.9 % Sodium Chloride Flush 3 ML SYRINGE IVFLUSH (09:10)
[2023-09-18] MEDS: Sertraline HCL 25 MG TABLET PO (09:10)
[2023-09-18] MEDS: Cholecalciferol (Vitamin D3) 25 MCG TABLET 50 MCG PO (09:10)
[2023-09-18] MEDS: Folic Acid 1 MG TABLET PO (09:10)
[2023-09-18 10:18] LABS: Ceruloplasmin 23 mg/dL (14-48)
[2023-09-18] MEDS: cefTRIAXone sodium 1 GM in 0.9 % Sodium Chloride 50 ML IV (10:24)
--- NOTE | 2023-09-18 10:27 | PM.DS ---
DS: Providers Provider Date of Service: 09/18/23 Date of admission: 09/15/23 17:19 Primary care physician: Anurag Ren MD Consults: 09/15/23 08:37 Consult to Neurology Stat Consulting Provider: [facility] Reason for consultation: supposed to be seen in office tomorrow - change in mental status 1.5 months Has provider been notified: Yes DS: Diagnosis Discharge Diagnosis (1) Clonus: Status: Acute DS: Summary Hospital Course Hospital Course: from initial hpi: 72 yo female with PMH of anxiety, cognitive impairment, celiac, osteoporosis, hypothyroidism, anemia, HTN here with c/o 1.5 months of change in behaviors, confusion, shaking episodes where she cannot walk. She has also been diagnosed with anxiety and depression with onset of symptoms in the last 2 months, started on sertraline 25mg 1 week ago. The patient understands she is in the hospital due to gait issues and tremors but seems somewhat aloof. at bedside assists with history. He reports for about 2 months has had intermittent episodes where the patient is confused, for example attending [employer] game and asking to leave as if the game is over when it is not. She is also not engaging in activities which were typically part of normal routine such as painting and gardening. Her entire body will become tremulous and she will complain of nausea with dry heaves. During these periods she will require 1-2 person assist to standing with very unsteady gait secondary to tremors. These episodes would last for about 20 minutes to one hour before resolving. They had been occurring every 4 days but are now much more frequent occurring at least daily. She was seen at urgent care twice in july and diagnosed with UTI x 2 and treated with macrobid, however UA only scantly positive with question of contamination and no cultures performed. Antibiotic therapy did not result in symptom resolution. No tick bites, recent travel, fevers, chills, st, congestion, headache, abd pain, vomiting, diarrhea, dysuria, hematuria, urgency/frequency, sob. lightheadedness, syncope, palptiations, or chest pain. Today vitals have been stable since arrival. Hematology studies unremarkable. renal function and lytes normal. Vitamin b12 normal. Folic acid slightly low at 3.4. TSH 0.2, free T$ wnl. UA with 3+ leuks, positive urinary sediment, 4+ bacteria but significant squamous epitheal cells concerning for contamination. Lyme IGG/IGM pending. Treponema ab pending. head CT unremarkable, no acute intracranial abnormality. CXR unremarkable. She was scheduled for egd today to confirm diagnosis of celiac. Evaluated by psychiatry who did not feel symptoms consistent with dementia. REcommending EEG and MRI. Evaluated by neurology who was concerned for UTI, recommending EEG but also did not feel symptoms consistent with dementia. Orthostatic hypotension ruled out as recommended. Was recently evaluated at [facility] for these symptoms with unremarkable head CT. TSH at that time was undetectable with slightly elevated free T4 1.86, however again on recheck at today's visit, TSH 0.02 with normal free T4. Thiamine level evaluated at [facility] was within normal limits. In the ED, has been given 1 g IV ceftriaxone to empirically cover for any possible UTI. hospital course: Patient was admitted for subacute and intermittent encephalopathy associated with gait disturbances and tremor. She was seen by Neurology felt this was primarily being driven by urinary tract infection, patient urine culture was negative but received empiric treatment with ceftriaxone. Gait improved as has encephalopathy. Multiple labs were drawn to workup symptoms, folic acid was noted to be deficient though not low enough to explain symptoms. She has been started on replacement. Lyme was negative, ceruloplasmin, zinc are still pending. MRI showed mild chronic microvascular changes and diffuse volume loss, also showed left parotid gland lymph node and CT neck was recommended which was done and showed multiple left parotid lymph nodes, largest 1 cm and left tonsillar prominence, direct visualization by ENT is recommended inpatient will be referred to ENT as outpatient. For mood disorder was continued on sertraline, for hypertension was continued on lisinopril, for hypothyroidism was continued on levothyroxine. Patient is now ambulating much better and will be discharged home to continue workup as outpatient. Time Attestation Discharge Coordination Time (in mins): 32 Quality: Safe Use of Opioids Does Pt have an Active Cancer Diagnosis on the Problem List?: No Quality: Stroke Does the patient have a stroke diagnosis?: No Physical Exam Vital Signs: Vital Signs: Last Vital Signs Temp 97.3 F 09/18/23 08:00 Pulse 72 09/18/23 08:00 Resp 16 09/18/23 08:00 BP 131/68 09/18/23 08:00 Pulse Ox 97 09/18/23 08:00 O2 Del Method Room Air 09/18/23 08:00 BMI result Body Mass Index 23.8 Constitutional - Awake and Alert, No apparent distress Eyes - PERRLA, EOMI. No Domingo-Randal ring Cardiovascular - S1S2, RRR, No edema Respiratory - Normal lung expansion, Normal respiratory effort, No respiratory distress, CTA bilaterally Gastrointestinal - NT / ND; +BS; No rebound or guarding Extremities - no calf tenderness bilaterally, no swelling Skin - Warm/Dry Neurological - Alert & oriented x3, but soomewhat aloof. CN II-XII in tact, 5/5 strength BUE and BLE, normal hzjdvr-cf-ymws testing and spyt-an-bsak testing. ankle clonus noted bilaterally DS: Data Data Completed and Pending Labs on day of discharge: Laboratory Results - last 24 hr 09/15/23 18:40 Ceruloplasmin 23 Discharge Plan Discharge Anticipated Discharge Date/Time: 09/18/23 10:21 Patient Disposition: Home, Self-Care Discharge Diagnosis: intermittent gait abnormalities, memory changes, parotid lymph nodes, left lingual tonsil prominence, folic acid deficiency Referrals: Anurag Ren MD [Primary Care Provider] - 1 Week Nick Enriquez MD [Physician] - 1 Week Casey Delarosa [Physician] - 1 Week (Asymmetric prominence of the left lingual tonsil extending into the left vallecula. 5 enhancing nodules in the left parotid gland, the largest of which measures up to 1 cm) Discharge Medications: New folic acid 1 mg Tablet 1 mg PO DAILY Qty: 90 0RF Continued omeprazole 20 mg Capsule,Delayed Release(Dr/Ec) 20 mg PO DAILY sertraline 25 mg tablet 25 mg PO DAILY 90 Days Qty: 90 1RF levothyroxine 75 mcg tablet 75 mcg PO DAILY 90 Days Qty: 90 3RF lisinopril 20 mg tablet 20 mg PO DAILY 90 Days Qty: 90 3RF simvastatin 40 mg tablet 40 mg PO BEDTIME 90 Days Qty: 90 3RF cholecalciferol (vitamin D3) 50 mcg (2,000 unit) capsule 50 mcg PO DAILY 90 Days Qty: 90 3RF Discharge Orders: Discharge Order (Routine); Ordered 09/18/23 Ordered By: Gene Ames Diet: Advance to usual diet Activity on Discharge: As tolerated Stand Alone Forms: Patient Portal Discharge page Print Language: Argentine Care Plan Goals: work up cognitive changes, replace folic acid, work up parotid lymph nodes and large tonsil Health Concerns: cognitive changes, folic acid deficiency, parotid lymph nodes Plan of Treatment: start folic acid supplement, follow up pending labs with pcp or neuro, follow up ENT for direct visualization and possible biopsy of CT neck findings Assessment: see above
[2023-09-19 16:32] LABS: Zinc 52 mcg/dL (60-130)
== END 2023-09-18 14:38 | disposition home or self-care (01) | DRG 690 ==
LOC: HO.ED 15:29 → HO.EDOVER 17:29
PROVIDERS: Admitting Provider Physician Assistant; Emergency Provider Emergency Medicine; PCP Internal Medicine; Visit Provider Internal Medicine
DX: N39.0 Urinary tract infection, site not specified (principal); G93.49 Other encephalopathy; E06.3 Autoimmune thyroiditis; K90.0 Celiac disease; F41.9 Anxiety disorder, unspecified; R25.8 Other abnormal involuntary movements; R26.9 Unspecified abnormalities of gait and mobility; F32.A Depression, unspecified; E53.8 Deficiency of other specified B group vitamins; R45.86 Emotional lability; K21.9 Gastro-esophageal reflux disease without esophagitis; E78.5 Hyperlipidemia, unspecified; F17.210 Nicotine dependence, cigarettes, uncomplicated; Z71.6 Tobacco abuse counseling; Z79.890 Hormone replacement therapy; Z79.899 Other long term (current) drug therapy
CPT/HCPCS: 36415; 70450; 70491; 70553; 71045; 80048; 80076; 81001; 82140; 82390; 82550; 82607; 82746; 82947; 83540; 83690; 83735; 84439; 84443; 84481; 84484; 84630; 85025; 85027; 85652; 86140; 86617; 86618; 86780; 87086; 93005; 95816; 99221; 99285; A9585; J0696; J1650; Q9967

== ENCOUNTER → 2023-09-15 07:08 | Outpatient (BNV) | payer OTHER, SELFPAY | PROVIDERS: Emergency Provider Emergency Medicine; PCP Internal Medicine; Visit Provider Internal Medicine | DX: R53.1 Weakness (principal) | CPT/HCPCS: 93010 ==

== ENCOUNTER → 2023-09-15 07:16 | Outpatient (BNV) | payer OTHER, SELFPAY | PROVIDERS: Emergency Provider Emergency Medicine; PCP Internal Medicine; Visit Provider Psychiatry & Neurology Neurology | DX: R41.89 Other symptoms and signs involving cognitive functions and awareness (principal); R46.89 Other symptoms and signs involving appearance and behavior; R26.9 Unspecified abnormalities of gait and mobility | CPT/HCPCS: 99221; 99222 ==

== ENCOUNTER → 2023-09-15 17:19 | Outpatient (BNV) | payer OTHER, SELFPAY | PROVIDERS: Admitting Provider Physician Assistant; Emergency Provider Emergency Medicine; PCP Internal Medicine; Visit Provider Internal Medicine | DX: R25.8 Other abnormal involuntary movements (principal) | CPT/HCPCS: 99222; 99223; 99232; 99239 ==

== ENCOUNTER 2023-09-19 11:40 | Emergency (ER) | payer OTHER, SELFPAY ==
[2023-09-19] VITALS (10 sets, daily range): BP systolic 93–155; BP diastolic 48–75; PULSE 61–94; RESP 11–24; TEMP 36.2–37.1; O2SAT 95–98; BMI 21.0
--- NOTE | ~2023-09-19 | CT_ITS ---
EXAMINATION: CT head/brain wo IV con CLINICAL INFORMATION: Reason for Exam ams COMPARISON: CT brain 09/15/2023 TECHNIQUE: Contiguous axial imaging was performed from the skull base to vertex without intravenous contrast. Sagittal and coronal reformatted images were obtained. This CT examination was performed using dose optimization techniques as appropriate, variously including the following: * Automated exposure control * Adjustment of mA and/or kV according to patient size (this includes techniques or standardized protocols for targeted exams where dose is matched to indication/reason for exam; i.e. extremities or head) Use of iterative reconstruction technique DLP: 536 mGy-cm FINDINGS: No acute osseous or soft tissue abnormality. The mastoid air cells and visualized portions of the paranasal sinuses are well aerated. There is no evidence of acute intracranial hemorrhage or territorial infarction. No abnormal mass effect or midline shift is seen. Gao to white matter differentiation is well preserved. No extra-axial fluid collections are identified. No hydrocephalus. CT/CT head/brain wo IV con IMPRESSION: 1. No acute intracranial abnormality.
--- NOTE | 2023-09-19 12:08 | ED_ITS ---
HPI - General Adult General Chief complaint: Altered Mental Status Stated complaint: uti Time Seen by Provider: 09/19/23 11:54 Source: patient Mode of arrival: ambulatory Limitations: no limitations History of Present Illness ED Provider: Jake MEJIA HPI narrative: 72-year-old female history of Clonus, anxiety, cognitive and behavioral changes, unintentional weight loss, hypothyroidism, hypertension, hyperlipidemia, with recent hospital admission here at [facility] presents with [id number] and who are concerned for patient's altered mental status, shakiness, anxiety, weakness, failure to thrive and intermittently complaining of suprapubic abdominal discomfort. According to family this has been ongoing for months, however it comes in phases last short periods of time, improves and then gets worse again. They report that patient was recently evaluated she was on multiple antibiotics for possible urinary tract infection she was discharged home without antibiotics. Since then she has also been complaining of itchiness in her peritoneal region. She was seen by Neurology, the hospitalist team, psychiatry all of which came to the conclusion that this may be anxiety and or psych related or a urinary tract infection. She received multiple testing studies including CT head, chest x-ray, brain MRI, CT soft tissue of the neck all of which were essentially unremarkable. Patient was feeling better when she left however when she got home she started rapidly declining again. According to [id number] patient has been having phases where she changes her voice and her affect completely, sometimes she starts talking like a child. She presents with very different mood when compared to about 2 months ago. Patient used to be independent, very active at home, without assistance and activities of daily living however over the past 2 months this has changed. Family and patient denied recent or remote history of substance use disorder, alcoholism. Patient used to smoke however quit smoking about 2 months ago. She has a good relationship with her family including her and [id number]. They have never seen her like this before. She personally does not have any psych history that they know of other than anxiety however she has a substantial family history of psych disorders. Patient is not a great historian and I am unable to obtain an accurate history from patient. She does however answer person, place, time and situation correctly when asked. The remainder of the exam patient is making noises, shaking and appears extremely anxious. Related Data Home Medications ?Medication ?Instructions ?Recorded ?Confirmed omeprazole 20 mg capsule,delayed 20 mg PO DAILY 09/15/23 09/15/23 release Previous Rx's ?Medication ?Instructions ?Recorded lisinopril 20 mg tablet 20 mg PO DAILY 90 days #90 tabs 07/15/22 cholecalciferol (vitamin D3) 50 50 mcg PO DAILY 90 days #90 caps 11/18/22 mcg (2,000 unit) capsule simvastatin 40 mg tablet 40 mg PO BEDTIME 90 days #90 tabs 11/18/22 levothyroxine 75 mcg tablet 75 mcg PO DAILY 90 days #90 tabs 09/02/23 sertraline 25 mg tablet 25 mg PO DAILY 90 days #90 tabs 09/02/23 folic acid 1 mg tablet 1 mg PO DAILY #90 tabs 09/18/23 Allergies Allergy/AdvReac Type Severity Reaction Status Date / Time No Known Allergies Allergy Verified 09/19/23 12:16 [facility] Past Medical History Attestation statement: The following information was validated with the patient. Source: old records reviewed and nursing notes reviewed Medical History Anxiety Celiac disease Vitamin D deficiency Osteoporosis Allergic rhinitis Pernicious anemia Acquired hypothyroidism Pure hypercholesterolemia Impaired fasting glucose Benign essential hypertension Surgical History History of excision of mass Family History Family History Father No problems noted. Mother No problems noted. Social History Social History Housing: House Alcohol intake: current Alcohol intake frequency: holidays/special occasions only Patient Tobacco Use Status: Current everyday Tobacco user Cigarettes Per Day: 6 Smoked in Last 30 Days: No e-Cigarette/Vaping Use: Never Used Second Hand Smoke Exposure: Yes Advance Directives: No Advance Directives Information Provided: No Do you have a plan to hurt others: No Plan service: No Current occupational status: retired Cognitive needs: No Hearing needs: No Vision needs: No Physical Exam ED Vital Signs: Vital Signs - 24 hr 09/19/23 12:02 09/19/23 12:11 09/19/23 12:59 Temperature 97.7 F 97.7 F Pulse Rate 62 72 67 Respiratory Rate 24 H 16 Blood Pressure 155/57 H 155/57 H 132/65 Pulse Oximetry 98 95 Oxygen Delivery Method Room Air Room Air 09/19/23 13:02 09/19/23 13:04 Temperature Pulse Rate 66 94 Respiratory Rate Blood Pressure 138/67 144/75 H Pulse Oximetry Oxygen Delivery Method BMI result Body Mass Index 21.0 vss Appearance: Alert.? Oriented X3.? No acute distress.?Shaky and anxious. Head: Normocephalic, atraumatic, no step-offs or deformities Eyes: Pupils equal, round and reactive to light.? ENT: Pharynx normal.? Neck: Normal inspection.? Neck supple.? CVS: Normal heart rate and rhythm.? Pulses normal.? Respiratory: No respiratory distress.? Breath sounds normal.? Abdomen: Soft and nontender.? Skin: Skin warm and dry.? Normal skin color.? Normal skin turgor.? Extremities: No lower extremity edema.? No calf ttp. Global weakness Neuro: Oriented X 3.? No motor deficit.? No sensory deficit. CN 2-12 intact Course Reevaluation(s) Reevaluation #1: Upon chart review patient was evaluated 4 days ago by neurologist Dr. Enriquez who diagnosed patient with a cognitive and behavioral changes, impaired gait, cognitive and behavioral changes were suspected to be secondary to urinary tract infection he had low suspicion of a dementing illness. In terms of his gait Neurology state that gait impairment appears to be her going blank when she is trying to walk in her legs getting rubbery that suggest cerebral hypoperfusion. It is possible that she has significant orthostatic hypotension related to blood pressure medicine dehydration and UTI. Today I will repeat orthostatic vital signs of possible. Time: 14:36 Reevaluation #2: Orthostatic vital signs negative. Head CT normal. CBC with slight leukocytosis no left shift. This could be inflammatory in nature from agitation/altered mental status. Unlikely from infection. Chemistry no acute findings requiring intervention. Normal troponin, normal CRP. Ammonia normal. TSH 0.04 around patient's baseline normal free T4. ESR CRP normal. UA without infection. I did discuss this case with the hospitalist Sujata Yi who tells me when patient was recently admitted she was seen by psych I am unable to find a psych note however. I did discuss this with the care team. Care team will have psychiatrist on-call evaluate patient. At this time physician observation will be initiated. At time observation was started patient common cooperative no acute distress will continue to monitor. Patient much more calm after Haldol, Benadryl and Ativan. Time: 14:37 Medications Administered Discontinued Medications Generic Name Dose Route Start Last Admin Trade Name Lorenza PRN Reason Stop Dose Admin Diphenhydramine HCl 25 mg 09/19/23 12:07 09/19/23 12:45 Diphenhydramine Hcl 25 Mg Capsule PO 09/19/23 12:08 25 mg ONCE ONE Administration Haloperidol 5 mg 09/19/23 12:07 09/19/23 12:45 Haloperidol 5 Mg Tablet PO 09/19/23 12:08 5 mg ONCE ONE Administration Lorazepam 1 mg 09/19/23 12:09 09/19/23 12:45 Lorazepam 1 Mg Tablet PO 09/19/23 12:10 1 mg ONCE ONE Administration Medical Decision Making Medical Decision Making [facility] Narrative: 1210 72 yo f presents w/ shakiness, anxiety, abd discomfort X months worsening. Intermittent in nature. Also new changes in voice, behavior and adls over the past few months PE A&O X 3. No meningeal signs. Global weakness. Neuro nonfocal hx and pe concerning for anxiety vs mood disorder vs dementia with behavioral disturbances, vs UTI vs cystitis. Unlikely ICH, stroke, posterior stroke, meningitis, encephalitis, hepatic encephalopathy. Itchiness could be a fungal infection however on exam it is not clear. Will wait for urine. No signs of Franco Plan- labs, imaging, collateral info from chart review Differential Diagnosis Differential Diagnoses: The differential diagnosis associated with the presentation includes hx and pe concerning for anxiety vs mood disorder vs dementia with behavioral disturbances, vs UTI vs cystitis. Unlikely ICH, stroke, posterior stroke, meningitis, encephalitis, hepatic encephalopathy.Itchiness could be a fungal infection however on exam it is not clear. Will wait for urine. No signs of Franco Admission/Observation Consideration of admission/observation: Escalation of care including admission/observation considered Possible Consult Healthcare Provider Management of the patient was discussed with: Hospitalist (Spoke to hospitalist about patient's previous admission.) Lab Data [facility] Lab Attestation statement: I reviewed the patient's lab results. 09/19/23 12:16 09/19/23 12:16 Labs: Lab Results 09/19/23 09/19/23 09/19/23 Range/Units 12:16 12:36 12:58 WBC 11.2 H (4.8-10.8) X10*3/uL RBC 4.30 (4.20-5.50) X10*6/uL Hgb 14.1 (12.0-16.0) g/dl Hct 38.3 (37.0-47.0) % MCV 89.1 (80.0-98.0) fL MCH 32.8 (27.0-33.0) pg MCHC 36.8 H (31.0-35.0) g/dl RDW 12.6 (11.0-16.0) % Plt Count 220 (160-400) X10*3/uL MPV 9.4 (9.4-12.3) fL Immature Gran % (Auto) 0.4 (0.0-0.4) % Neut % (Auto) 75.8 H (45-73) % Lymph % (Auto) 15.8 L (20-40) % [place] % (Auto) 5.6 (2-11) % Eos % (Auto) 1.8 (0-4) % Baso % (Auto) 0.6 (0-2) % Lymph # (Auto) 1.8 (1.2-4.9) X10*3/uL [place] # (Auto) 0.6 (0.1-1.2) X10*3/uL Eos # (Auto) 0.2 (0.0-0.4) X10*3/uL Baso # (Auto) 0.1 (0.0-0.2) X10*3/uL Abs Immat Gran (auto) 0.04 H (0.00-0.03) X10*3/uL Absolute Neuts (auto) 8.5 H (2.0-8.3) x10*3/uL Absolute Nucleated RBC 0.000 (0.0-0.012) X10*3/uL Nucleated RBC % (auto) 0.0 (0.0-0.2) /100WBC ESR 10 (0-20) MM/HR Hold Purple Top SEE NOTE Sodium 138 (135-145) mmol/L Potassium 3.5 (3.3-5.1) mmol/L Chloride 104 (96-108) mmol/L Carbon Dioxide 23 (22-29) mmol/L Anion Gap 15 (12-20) BUN 14 (9-16) mg/dL Creatinine 0.82 (0.5-1.4) mg/dL Estim Creat Clear Calc 49.7 Estimated GFR > 60 Random Glucose 114 (60-115) mg/dL Calcium 10.4 H D (8.4-10.2) mg/dL Magnesium 2.0 (1.6-2.6) mg/dL Total Bilirubin 0.7 (0.0-1.0) mg/dL AST 29 (5-31) U/L ALT 25 (0-31) U/L Alkaline Phosphatase 58 (39-117) U/L Ammonia 29 (13-55) umol/L Troponin I High Sens < 2.7 (<3.5-17.0) ng/L C-Reactive Protein < 0.04 (< or = 0.50) mg/dL Total Protein 7.2 (6.5-8.0) g/dL Albumin 4.6 (3.5-5.0) g/dL Lipase 18 (8-78) U/L TSH 0.04 L (0.32-4.0) uIU/mL Free T4 1.26 (0.71-1.85) ng/dL Urine Color Yellow Urine Appearance Clear Urine pH 6.5 (5.0-9.0) Ur Specific [place] <= 1.005 (1.005-1.025) Urine Protein Negative (Neg-Trace) mg/dL Urine Glucose (UA) Negative (Negative) mg/dL Urine Ketones Negative (Negative) mg/dL Urine Blood Negative (Negative) Urine Nitrite Negative (Negative) Ur Leukocyte Esterase Negative (Negative) Salicylates < 5.0 L (15-30) mg/dL Urine Opiates Screen Not Detected (Not Detect) Ur Buprenorphine Scrn Not Detected (Not Detect) ng/mL Ur Oxycodone Screen Not Detected (Not Detect) ng/mL Urine Methadone Screen Not Detected (Not Detect) ng/mL Urine Fentanyl Screen Not Detected (Not Detect) Acetaminophen < 3 (<30) mcg/mL Ur Barbiturates Screen Not Detected (Not Detect) Ur Phencyclidine Scrn Not Detected (Not Detect) Ur Amphetamines Screen Not Detected (Not Detect) U Benzodiazepines Scrn Not Detected (Not Detect) Urine Cocaine Screen Not Detected (Not Detect) U Marijuana (THC) Screen Not Detected (Not Detect) Ethyl Alcohol < 10 mg/dL Independent Interpretation I performed an independent interpretation of an: EKG (Vent. Rate : 066 BPM Atrial Rate : 066 BPM P-R Int : 158 ms QRS Dur : 066 ms QT Int : 396 ms P-R-T Axes : 053 029 063 degrees QTc Int : 415 ms Normal sinus rhythm Normal ECG When compared with ECG of 15-SEP-2023 07:08, No significant change was found) and CT Scan ( CT/CT head/brain wo IV con IMPRESSION: 1. No acute intracranial abnormality. ) Interpretation: Reviewed imaging from previous visits Radiology Impression Discussion of test interpretation with radiology: I have reviewed the radiologist's reading. Independent Historian Clinical information obtained from an independent historian. History obtained from or confirmed by: Spouse and Other (daughter in law ) External Record Review External record reviewed: Inpatient record, Office record, Outpatient record, Prior outpatient labs, Prior outpatient radiology, Primary care record and Outside ED record Tests considered The following testing was considered but not selected: Considered lumbar puncture however this appears to be very invasive given patient's presentation and after reviewing chart this is likely psychiatric in origin, normal labs, normal imaging. No fever, tachycardia, patient nontoxic. No recent illness or upper respiratory infection low suspicion for meningitis or encephalitis. Chronic Conditions Patient?s care impacted by: Other (Clonus, anxiety, cognitive and behavioral changes, unintentional weight loss, hypothyroidism, hypertension, hyperlipidemia) Social Determinants Patient?s care significantly limited by Social Determinants of Health including: Alcoholism and drug addiction in family Discharge Plan Discharge Clinical Impression: Anxiety, Memory changes, Cognitive and behavioral changes Patient Disposition: Still a Patient Prescriptions: No Action omeprazole 20 mg Capsule,Delayed Release(Dr/Ec) 20 mg PO DAILY folic acid 1 mg Tablet 1 mg PO DAILY Qty: 90 0RF sertraline 25 mg tablet 25 mg PO DAILY 90 Days Qty: 90 1RF levothyroxine 75 mcg tablet 75 mcg PO DAILY 90 Days Qty: 90 3RF lisinopril 20 mg tablet 20 mg PO DAILY 90 Days Qty: 90 3RF simvastatin 40 mg tablet 40 mg PO BEDTIME 90 Days Qty: 90 3RF cholecalciferol (vitamin D3) 50 mcg (2,000 unit) capsule 50 mcg PO DAILY 90 Days Qty: 90 3RF Print Language: Mozambican
--- NOTE | 2023-09-19 12:14 | ECG_ITS ---
Test Reason : AMS Blood Pressure : / mmHG Vent. Rate : 066 BPM Atrial Rate : 066 BPM P-R Int : 158 ms QRS Dur : 066 ms QT Int : 396 ms P-R-T Axes : 053 029 063 degrees QTc Int : 415 ms Normal sinus rhythm Normal ECG When compared with ECG of 15-SEP-2023 07:08, No significant change was found Referred By: Kendrick Smith Electronically Signed By:MAYELIN HALE
[2023-09-19 12:22] LABS: MANUAL DIFF FLAG NO
[2023-09-19 12:24] LABS: Basophils Absolute Auto 0.1 X10*3/uL (0.0-0.2); Basophils Percent Auto 0.6 % (0-2); Eosinophils Absolute Auto 0.2 X10*3/uL (0.0-0.4); Eosinophils Percent Auto 1.8 % (0-4); Hematocrit 38.3 % (37.0-47.0); Hemoglobin 14.1 g/dl (12.0-16.0); Imm Gran Abs Auto 0.04 X10*3/uL (0.00-0.03); Imm Gran Pct Auto 0.4 % (0.0-0.4); Lymphocytes Absolute Auto 1.8 X10*3/uL (1.2-4.9); Lymphocytes Percent Auto 15.8 % (20-40); Mean Corpuscular HGB Conc 36.8 g/dl (31.0-35.0); Mean Corpuscular Hemoglobin 32.8 pg (27.0-33.0); Mean Corpuscular Volume 89.1 fL (80.0-98.0); Mean Platelet Volume 9.4 fL (9.4-12.3); Monocytes Absolute Auto 0.6 X10*3/uL (0.1-1.2); Monocytes Percent Auto 5.6 % (2-11); Neutrophils Absolute Auto 8.5 x10*3/uL (2.0-8.3); Neutrophils Percent Auto 75.8 % (45-73); Platelet Count 220 X10*3/uL (160-400); Red Cell Distribution Width 12.6 % (11.0-16.0); White Blood Count 11.2 X10*3/uL (4.8-10.8)
[2023-09-19 12:25] LABS: Appearance Urine Clear; Color Urine Yellow; Glucose Urine UA Negative (Negative); Leukocyte Esterase Urine Negative (Negative); Nitrite Urine Negative (Negative); PH 6.5 (5.0-9.0); Specific Gravity - Urine <= 1.005 (1.005-1.025); Urine Blood Negative (Negative); Urine Ketones Negative (Negative); Urine Protein Negative (Neg-Trace)
[2023-09-19 12:38] LABS: Alanine Aminotransferase 25 U/L (0-31); Albumin Level 4.6 g/dL (3.5-5.0); Alkaline Phosphatase 58 U/L (39-117); Anion Gap 15 (12-20); Aspartate Amino Transferase 29 U/L (5-31); Bilirubin Total 0.7 mg/dL (0.0-1.0); Blood Urea Nitrogen 14 mg/dL (9-16); Calcium 10.4 mg/dL (8.4-10.2); Carbon Dioxide 23 mmol/L (22-29); Chloride 104 mmol/L (96-108); Creatinine Clr Calc Pharmacy 49.7; Estimated Glomerular Filt Rate > 60; Glucose Random 114 mg/dL (60-115); Lipase 18 U/L (8-78); Potassium 3.5 mmol/L (3.3-5.1); Sodium 138 mmol/L (135-145); Total Protein 7.2 g/dL (6.5-8.0)
[2023-09-19] MEDS: diphenhydrAMINE HCL 25 MG CAPSULE PO (12:45)
[2023-09-19] MEDS: HaloperidoL 5 MG TABLET PO (12:45)
[2023-09-19] MEDS: LORazepam 1 MG TABLET PO (12:45)
[2023-09-19 12:53] LABS: Amphetamine Screen Urine Not Detected (Not Detect); Barbiturates, Urine Not Detected (Not Detect); Benzodiazepines Screen Urine Not Detected (Not Detect); Buprenorphine Scr Not Detected (Not Detect); Cannabinoid Screen Urine Not Detected (Not Detect); Cocaine Screen Urine Not Detected (Not Detect); Fentanyl, urine Not Detected (Not Detect); Methadone Screen, Urine Not Detected (Not Detect); Opiate Screen Urine Not Detected (Not Detect); Oxycodone Screen Urine Not Detected (Not Detect); Phencyclidine Screen Urine Not Detected (Not Detect)
[2023-09-19 13:04] LABS: Acetaminophen LAB < 3 mcg/mL (<30); Salicylate < 5.0 mg/dL (15-30)
[2023-09-19 13:10] LABS: C Reactive Protein < 0.04 mg/dL (< or = 0.50); Ethanol < 10 mg/dL; Troponin-I High Sensitivity < 2.7 ng/L (<3.5-17.0)
[2023-09-19 13:14] LABS: Ammonia 29 umol/L (13-55)
[2023-09-19 13:25] LABS: Free T4 (Free Thyroxine) 1.26 ng/dL (0.71-1.85); Thyroid Stimulating Hormone 0.04 uIU/mL (0.32-4.0)
[2023-09-19 13:35] LABS: Erythrocyte Sedimentation Rate 10 MM/HR (0-20)
--- NOTE | 2023-09-19 15:30 | P.CNPS_ITS ---
History of Present Illness Date of Service: 09/19/2023 Chief Complaint: uti Sources of Information: patient interviewed and chart reviewed HPI Narrative: Medicine Discharge Summary (09/15/23-09/18/23): was admitted for subacute and intermittent encephalopathy associated with gait disturbances and tremor. She was seen by Neurology felt this was primarily being driven by urinary tract infection, patient urine culture was negative but received empiric treatment with ceftriaxone. Gait improved as has encephalopathy. Multiple labs were drawn to workup symptoms, folic acid was noted to be deficient though not low enough to explain symptoms. She has been started on replacement. Lyme was negative, ceruloplasmin, zinc are still pending. MRI showed mild chronic microvascular changes and diffuse volume loss, also showed left parotid gland lymph node and CT neck was recommended which was done and showed multiple left parotid lymph nodes, largest 1 cm and left tonsillar prominence, direct visualization by ENT is recommended inpatient will be referred to ENT as outpatient. For mood disorder was continued on sertraline, for hypertension was continued on lisinopril, for hypothyroidism was continued on levothyroxine. Patient is now ambulating much better and will be discharged home to continue workup as outpatient. Neurology Consult 09/15/23: Mental status change appears to be related to urinary tract infection. I do not believe that she has a dementing illness.... A gait impairment appears to be her going blank when she is trying to walk in her legs getting rubbery that suggest cerebral hypoperfusion. It is possible that she has significant orthostatic hypotension related to blood pressure medicine dehydration and UTI. Today: Did well with haldol, Ativan and Benadryl today, when feeling overwhelmed, anxious and shaking. Met with patient, daughter and . Confirm history as above. Did know however that there do appear to be some features of depression in recent weeks with lower mood, negative view of self and believing that she has done all this to herself, feeling that she is a burden, easily overwhelmed, more anxious, sleeping excessively, decreased appetite. Also very somatically preoccupied regarding any physical symptoms or experiences. No hallucinations. No SI. No aggression or agitation. Met with pt and family. Overall- depression with anxiety. Responded well to haldol, benadryl and ativan earlier. Will DC zloft. Start wellbutrin 150, haldol 1mg prn bid for anxiety and benadryl 25mg prn (EPS)- explained to family ref benadryl indication and also time to effect for wellbutrin and haldol is short term (until wellbutrin effective). Avoid benzo for now. Advised follow up with PCP ref med management +/- psych referral. Sent 2 week rx of meds to [facility]. Also need to rule out any other organic issues and neuro OPD follow up pending from recent hospital discharge (09/17). Past Psychiatric History: No past psychiatric history [facility] Medical History Anxiety Celiac disease Vitamin D deficiency Osteoporosis Allergic rhinitis Pernicious anemia Acquired hypothyroidism Pure hypercholesterolemia Impaired fasting glucose Benign essential hypertension Surgical History History of excision of mass Social History: lives with . Daughter very supportive. Diagnostics Vital Signs (24Hr): Vital Signs - 24 hr 09/19/23 12:02 09/19/23 12:11 09/19/23 12:59 Temperature 97.7 F 97.7 F Pulse Rate 62 72 67 Respiratory Rate 24 H 16 Blood Pressure 155/57 H 155/57 H 132/65 Pulse Oximetry 98 95 Oxygen Delivery Method Room Air Room Air 09/19/23 13:02 09/19/23 13:04 Temperature Pulse Rate 66 94 Respiratory Rate Blood Pressure 138/67 144/75 H Pulse Oximetry Oxygen Delivery Method BMI result Body Mass Index 21.0 Labs 09/19/23 12:16 09/19/23 12:16 Labs: Laboratory Results - last 48 hr 09/19/23 09/19/23 09/19/23 12:16 12:36 12:58 WBC 11.2 H RBC 4.30 Hgb 14.1 Hct 38.3 MCV 89.1 MCH 32.8 MCHC 36.8 H RDW 12.6 Plt Count 220 MPV 9.4 Immature Gran % (Auto) 0.4 Neut % (Auto) 75.8 H Lymph % (Auto) 15.8 L [place] % (Auto) 5.6 Eos % (Auto) 1.8 Baso % (Auto) 0.6 Lymph # (Auto) 1.8 [place] # (Auto) 0.6 Eos # (Auto) 0.2 Baso # (Auto) 0.1 Abs Immat Gran (auto) 0.04 H Absolute Neuts (auto) 8.5 H Absolute Nucleated RBC 0.000 Nucleated RBC % (auto) 0.0 ESR 10 Hold Purple Top SEE NOTE Sodium 138 Potassium 3.5 Chloride 104 Carbon Dioxide 23 Anion Gap 15 BUN 14 Creatinine 0.82 Estim Creat Clear Calc 49.7 Estimated GFR > 60 Random Glucose 114 Calcium 10.4 H D Magnesium 2.0 Total Bilirubin 0.7 AST 29 ALT 25 Alkaline Phosphatase 58 Ammonia 29 Troponin I High Sens < 2.7 C-Reactive Protein < 0.04 Total Protein 7.2 Albumin 4.6 Lipase 18 TSH 0.04 L Free T4 1.26 Urine Color Yellow Urine Appearance Clear Urine pH 6.5 Ur Specific [place] <= 1.005 Urine Protein Negative Urine Glucose (UA) Negative Urine Ketones Negative Urine Blood Negative Urine Nitrite Negative Ur Leukocyte Esterase Negative Salicylates < 5.0 L Urine Opiates Screen Not Detected Ur Buprenorphine Scrn Not Detected Ur Oxycodone Screen Not Detected Urine Methadone Screen Not Detected Urine Fentanyl Screen Not Detected Acetaminophen < 3 Ur Barbiturates Screen Not Detected Ur Phencyclidine Scrn Not Detected Ur Amphetamines Screen Not Detected U Benzodiazepines Scrn Not Detected Urine Cocaine Screen Not Detected U Marijuana (THC) Screen Not Detected Ethyl Alcohol < 10 Imaging Radiology Impressions: ITS Impressions Head CT 09/19/23 12:55 IMPRESSION: 1. No acute intracranial abnormality. Mental Status Exam Mental Status Exam Narrative: Pleasant. Engaged. He is clearly anxious and often defers to family for answers or comments. No cognitive issues noted and oriented to date, place and circumstances. Did however not feel was concerned regarding her gait or mood. Affect is flat the patient describes feeling anxious. Appears depressed. No SI. No HI. No agitation. Very somatically concerned and feeling like a burden at times, but not currently at delusional intensity. No hallucinations. Insight and judgment fair Medications Allergies Allergies Allergy/AdvReac Type Severity Reaction Status Date / Time No Known Allergies Allergy Verified 09/19/23 12:16 Assessment & Plan Assessment & Plan (1) Major depression: Status: Acute Code(s): F32.9 - Major depressive disorder, single episode, unspecified Plan Met with pt and family. Overall- depression with anxiety. Responded well to haldol, benadryl and ativan earlier. Will DC zloft. Start wellbutrin 150, haldol 1mg prn bid for anxiety and benadryl 25mg prn (EPS)- explained to family ref benadryl indication and also time to effect for wellbutrin and haldol is short term (until wellbutrin effective). Avoid benzo for now. Advised follow up with PCP ref med management +/- psych referral. Sent 2 week rx of meds to [facility]. Also need to rule out any other organic issues and neuro OPD follow up pending from recent hospital discharge (09/17). Total time managing care of this patient today ____ minutes. Patient educated on: diagnosis and medication risk/benefits Guardian/Caregiver educated on: diagnosis and medication risk/benefits Informed Consent: understands
[2023-09-19] MEDS: Nystatin Powder 15 GM BOTTLE 1 APPL TOPICAL (15:57)
[2023-09-19] MEDS: hydrOXYzine HCL 25 MG TABLET PO (15:58)
--- NOTE | 2023-09-19 16:23 | PM.EVENT ---
Event Note Date of Service: 09/19/23 Event Note: Met with pt and family. Overall- depression with anxiety. Responded well to haldol, benadryl and ativan earlier. Will DC zloft. Start wellbutrin 150, haldol 1mg prn bid for anxiety and benadryl 25mg prn (EPS)- explained to family ref benadryl indication and also time to effect for wellbutrin and haldol is short term (until wellbutrin effective). Avoid benzo for now. Advised follow up with PCP ref med management +/- psych referral. Sent 2 week rx [facility] meds to [facility]. Also need to rule out any other organic issues and neuro OPD follow up pending from recent hospital discharge (09/17). Time Spent With Patient Time: Total time managing care of this patient today ____ minutes.
== END 2023-09-19 20:40 | disposition home or self-care (01) ==
PROVIDERS: Physician Assistant; Emergency Provider Emergency Medicine; PCP Internal Medicine
DX: F41.9 Anxiety disorder, unspecified (principal); F91.8 Other conduct disorders; R41.89 Other symptoms and signs involving cognitive functions and awareness; F32.9 Major depressive disorder, single episode, unspecified; R62.7 Adult failure to thrive; Z68.21 Body mass index [BMI] 21.0-21.9, adult; I10 Essential (primary) hypertension; E55.9 Vitamin D deficiency, unspecified; E78.00 Pure hypercholesterolemia, unspecified; F17.210 Nicotine dependence, cigarettes, uncomplicated; Z79.899 Other long term (current) drug therapy; Z79.02 Long term (current) use of antithrombotics/antiplatelets
CPT/HCPCS: 36415; 51701; 70450; 80053; 80143; 80179; 80307; 81003; 82140; 83690; 83735; 84439; 84443; 84484; 85025; 85652; 86140; 93005; 99285

== ENCOUNTER → 2023-09-19 12:14 | Outpatient (BNV) | payer OTHER, SELFPAY | PROVIDERS: Emergency Provider Emergency Medicine; PCP Internal Medicine; Visit Provider Internal Medicine | DX: R41.82 Altered mental status, unspecified (principal) | CPT/HCPCS: 93010 ==

== ENCOUNTER → 2023-09-19 12:41 | Outpatient (BNV) | payer OTHER, SELFPAY | PROVIDERS: Emergency Provider Emergency Medicine; PCP Internal Medicine; Visit Provider Psychiatry & Neurology Psychiatry | DX: F32.9 Major depressive disorder, single episode, unspecified (principal) | CPT/HCPCS: 99284; 99499 ==

== ENCOUNTER 2023-09-23 12:16 | Outpatient (AMB) | payer OTHER, SELFPAY ==
--- NOTE | 2023-09-23 12:31 | MHC.PC.OV ---
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 Allergies No Known Allergies Allergy (Verified 09/23/23 12:40) Medication List - Last Reconciled 09/23/23 by Anurag Ren MD bupropion HCl XL (Wellbutrin XL) 150 mg PO QAM cholecalciferol (vitamin D3) 50 mcg PO DAILY 90 days diphenhydramine HCl (Benadryl Allergy) 25 mg PO BEDTIME PRN folic acid 1 mg PO DAILY haloperidol 1 mg PO BID PRN levothyroxine 75 mcg PO DAILY 90 days lisinopril 20 mg PO DAILY 90 days omeprazole 20 mg PO DAILY simvastatin 40 mg PO BEDTIME 90 days Tobacco use date assessed: 09/02/23 Fall risk assessment: No Falls in past year Last assessed Fall Risk: 09/23/23 Dental Screening Dental Screen Date: 04/01/23 HPI ED FOLLOW UP HPI Details Wilda comes in for her HDF follow up visit She was brought to the ER by her family last weekend on 09/19/2023 for increasing confusion/altered mental status, on and off shaking, weakness and increasing anxiety Family states that her symptoms have been going on for the past month or two now and they seem to be getting worse lately Notes that she seems to be obsessed and excessively worrying about having cancer She had extensive work ups done in the ER, including labs, EKG and head CT, of which all came back negative She was seen and evaluated by psychiatry and was diagnosed with anxiety and depression She was started on Wellbutrin XL 150 mg QD, Haldol 1 mg BID PRN and Diphenhydramine 25 mg PRN and sent home with instructions to follow up with PCP and psychiatry YULIET Patient's states that she has an appointment scheduled to see Dr. Enriquez on 10/15/2023 Her daughter states that they have not really been giving her the Haldol ( only gave her this 1 time) and felt that the Benadryl was working fine - they just want to know how often she can take this in a day States that she will need these Rx refilled if she is to continue on them as the hospital just gave them enough for a couple of weeks Patient continues to present with on and off random shaking of her hands, followed by shaking of her right leg and foot, after which her right foot appears to curl and cramp up She then tried to stand up to show her shakiness and ended up not being able to stand for too long due to her overall/generalized shaking, which promptly stopped when she sat down She also kept repeating that she is afraid that she may have cancer and does not know what is going on with her and why does this keep happening? Her family states that she has trouble sleeping at night lately and often reportedly has nightmares and that she woke up in the middle of the night last week claiming that somebody called her up to inform her that she has cancer She currently denies any headaches or dizziness Denies any chest pains, no increased SOB No nausea/vomiting, no abdominal pain - her daughter states that patient's previous GI symptoms have resolved as long as she avoids gluten in her diet No change in bowel habits noted FOR[facility]LY [facility], [facility] Medical History Anxiety Celiac disease Vitamin D deficiency Osteoporosis Allergic rhinitis Pernicious anemia Acquired hypothyroidism Pure hypercholesterolemia Impaired fasting glucose Benign essential hypertension Surgical History History of excision of mass Family History Father No problems noted. Mother No problems noted. Social History Housing: House Alcohol intake: current Alcohol intake frequency: holidays/special occasions only Patient Tobacco Use Status: Current everyday Tobacco user Cigarettes Per Day: 6 e-Cigarette/Vaping Use: Never Used Second Hand Smoke Exposure: Yes service: No Current occupational status: retired Cognitive needs: No Hearing needs: No Vision needs: No Questionnaire Thrive Questionnaire Date Thrive assessed: 09/17/23 AUDIT C Alcohol Use Questionnaire (AUDIT-C) 1. How often do you have a drink containing alcohol?: Monthly or less 2. How many drinks containing alcohol do you have on a typical day when you are drinking?: 1 or 2 3. How often do you have six or more drinks on one occasion?: Never Total Score: 1 Score Reviewed/Action Taken: Yes JOHNIE-7 AMB Questionnaire JOHNIE-7 Date JOHNIE - 7 assessed: 04/01/23 Source: Developed by Drs. Quintin Amato, Alexandra Gusman, Wayne Eng and colleagues, with an educational elisa from [employer]. Review of Systems Const Denies chills, Denies difficulty sleeping (Rx helping), Reports fatigue, Denies fever(s) and Denies headache(s) ENT Denies dysphagia, Denies dizziness, Denies otalgia, Denies headache(s), Denies neck pain, Denies odynophagia and Denies sore throat Card Denies chest pain, Denies palpitations and Denies dyspnea Resp Denies cough and Denies dyspnea GI Denies abdominal pain, Denies constipation, Denies dysphagia, Denies heartburn, Denies diarrhea, Denies nausea, Denies odynophagia and Denies vomiting Denies difficulty voiding, Denies nocturia, Denies dysuria and Denies urinary urgency Musc Denies back pain and Denies neck pain Skin/Breast Denies rash Neuro Reports as per HPI, Reports behavioral changes, Reports confusion, Denies dizziness, Denies headache(s) and Reports memory loss Psych Reports as per HPI, Reports anxiety, Reports behavioral changes, Reports confusion and Reports memory loss Endo Reports fatigue and Denies palpitations Physical exam (Primary Care) Vital Signs: Last Vital Signs Pulse 90 09/23/23 12:32 BP 130/72 09/23/23 12:32 Pulse Ox 97 09/23/23 12:32 Oxygen Delivery Method Room Air 09/23/23 12:32 BMI result Body Mass Index 21.0 Tobacco/Smoking Status: Tobacco use Status Tobacco use date assessed 09/02/23 09/23/23 12:32 Patient Tobacco Use Status Current everyday Tobacco 09/23/23 12:32 e-Cigarette/Vaping Use Never Used 09/23/23 12:32 Thrive Assessment: Date of Thrive Assessment Date Thrive assessed 09/17/23 09/23/23 12:32 Const General: anxious and confusion Orientation/consciousness: patient oriented x3 and confusion HENMT Throat: Yes posterior oropharynx normal and Yes tonsils normal (no TP congestion) Neck Neck: Yes no lymphadenopathy, Yes no meningeal signs and Yes supple Thyroid: Thyroid normal Resp Auscultation: clear to auscultation bilaterally, no rales and no wheezes Cardio Rate: regular rate Rhythm: regular rhythm Heart sounds: no murmurs GI Palpation (GI): Soft to palpation and nontender Auscultation: normal bowel sounds General: Yes no CVA tenderness Back/Spine/Pelvis Back: no CVA tenderness Thoracic/Lumbar Spine: No lumbar spinal tenderness Skin Rashes: no rashes Neuro Other: randomly occurring on and off shaking / tremors of hands, right leg, whole body - see HPI General: patient oriented x3, no meningeal signs, no focal motor deficits and confusion Gait exam (Neuro): Normal gait present Extrem General: Yes no clubbing, cyanosis or edema Assessment and Plan Assessment & Plan (1) Anxiety: Code(s): F41.9 - Anxiety disorder, unspecified Plan: Have advised / reassured patient and her family that all of the work ups that she's had at the ER over the past week have come back normal, and that majority of her current symptoms are likely due to anxiety, which seems to be pretty significant at this time Her states that patient quit smoking cold turkey a couple of months ago after smoking for so many years and if wondering if her quitting the way she did triggered something in her - have advised them that this is a possibility but even just quitting smoking itself may have contributed to this, especially if she was smoking in the past as a subconscious attempt to alleviate her anxiety as well Will have her continue on Wellbutrin XL 150 mg QD and Benadryl 25 mg, which I will increased to 1 to 2 tablets up to 4 times a day as needed They can still give her Haldol 1 mg BID PRN but I would have them give them only as a last resort and if Benadryl is not helping her She has an appointment scheduled with Dr. Enriquez on 10/15/2023 and I have advised them to keep that appointment Advised that Dr. Enriquez also specializes in psychiatry (he holds degree in Neurology AND Psychiatry) and if he feels comfortable treating patients on his own, then she may not need to see another psychiatrist at this time (2) Celiac disease: Code(s): K90.0 - Celiac disease Plan: Her celiac disease testing done a couple of months ago came back positive, as evidence by an elevated tissue transglutaminase IgA level of 30.4 U/ml Patient states that her GI symptoms and bowel movements are all back to normal as soon as she started herself on a gluten-free diet, and she is advised to continue to do so Follow up with GI as scheduled (3) Benign essential hypertension: Code(s): I10 - Essential (primary) hypertension Plan: Reinforced low sodium diet - goal is systolic BP of at least 130 to 140 mm or less Continue Lisinopril 20 mg QD (4) Pure hypercholesterolemia: Code(s): E78.00 - Pure hypercholesterolemia, unspecified Plan: Reinforced low cholesterol diet Continue Simvastatin 40 mg QD Will recheck her labs and fasting lipids as scheduled in a couple of months for follow up (5) Acquired hypothyroidism: Comment: (+) Shiv's Code(s): E03.9 - Hypothyroidism, unspecified Plan: Her TFTs last done in July 2023 still showed a low/suppressed TSH level but her free T4 appears to be normal but her free T4 level done at the ER a few weeks ago showed an elevated level at 1.86 Have advised patient that as she has lost so much weight over the past few months, her requirements have likely changed We lowered her Levothyroxine to 75 mcg QD Will recheck her TFTs in November 2023 for follow up (6) Impaired fasting glucose: Code(s): R73.01 - Impaired fasting glucose Plan: HgbA1c was normal at 5.2% and 5.3% when checked previously; RBS was normal at 107 mg/dl on her labs done last month Reinforced low calorie diet/exercise as tolerated (7) Pernicious anemia: Code(s): D51.0 - Vitamin B12 deficiency anemia due to intrinsic factor deficiency Plan: Her B12 level was normal on her labs done a couple of months ago Continue Vitamin B12 tablets 1000 mcg QD (8) Vitamin D deficiency: Code(s): E55.9 - Vitamin D deficiency, unspecified Plan: Continue Vitamin D3 2000 units QD (9) Osteoporosis: Code(s): M81.0 - Age-related osteoporosis without current pathological fracture Qualifiers: Osteoporosis type: age-related Presence of current pathological fracture: without current pathological fracture Qualified Code(s): M81.0 - Age-related osteoporosis without current pathological fracture Plan: Repeat BMD done on 03/22/2021 showed a slight decreased from previous BMD in the lumbar spine; BMD in the femur remains unchanged from previous Patient is again encouraged on regular exercise and physical activity and continue daily Calcium and Vitamin D supplements Fall precautions reinforced Will continue to monitor her BMD every 2 to 3 years (10) Allergic rhinitis: Code(s): J30.9 - Allergic rhinitis, unspecified Qualifiers: Allergic rhinitis trigger: unspecified Allergic rhinitis seasonality: unspecified Qualified Code(s): J30.9 - Allergic rhinitis, unspecified Plan: Continue Loratadine 10 mg QD PRN Plan Follow up as scheduled in November 2023 Medications: Changed From diphenhydramine HCl (Benadryl Allergy) 25 mg PO BEDTIME PRN 7 tabs 0RF 1-2 tab as needed for tongue swelling, muscle lock F41.9 - Anxiety disorder, unspecified To diphenhydramine HCl (Benadryl Allergy) 1 to 2 tablets up to 3 to 4 times a day as needed 100 tabs 1RF as needed for tongue swelling, muscle lock,anxiety F41.9 - Anxiety disorder, unspecified From bupropion HCl XL (Wellbutrin XL) 150 mg PO QAM 14 tabs 0RF depression/anxiety To bupropion HCl XL (Wellbutrin XL) 150 mg PO QAM 30 days 30 tabs 3RF depression/anxiety Refilled haloperidol 1 mg PO BID PRN 15 tabs 0RF anxiety/agitation Coding Level of Care Code Est Pt Level 4 (12742) Diagnoses Anxiety F41.9 Celiac disease K90.0 Benign essential hypertension I10 Pure hypercholesterolemia E78.00 Acquired hypothyroidism E03.9 Impaired fasting glucose R73.01 Pernicious anemia D51.0 Vitamin D deficiency E55.9 Age-related osteoporosis without current pathological fracture M81.0 Osteoporosis type: age-related Presence of current pathological fracture: without current pathological fracture Allergic rhinitis, unspecified seasonality, unspecified trigger J30.9 Allergic rhinitis trigger: unspecified Allergic rhinitis seasonality: unspecified
[2023-09-23 12:32] VITALS: BP 130/72; PULSE 90; O2SAT 97; BMI 21.0
== END 2023-09-23 13:05 | disposition home or self-care (01) ==
PROVIDERS: PCP Internal Medicine; Visit Provider Internal Medicine
DX: F41.9 Anxiety disorder, unspecified (principal); K90.0 Celiac disease; I10 Essential (primary) hypertension; E78.00 Pure hypercholesterolemia, unspecified; E03.9 Hypothyroidism, unspecified; R73.01 Impaired fasting glucose; D51.0 Vitamin B12 deficiency anemia due to intrinsic factor deficiency; E55.9 Vitamin D deficiency, unspecified; M81.0 Age-related osteoporosis without current pathological fracture; J30.9 Allergic rhinitis, unspecified
CPT/HCPCS: 99214

== ENCOUNTER 2023-10-20 12:22 | Outpatient (REF) | payer OTHER, SELFPAY ==
[2023-10-20 13:50] LABS: Appearance Urine Turbid; Color Urine Yellow; Glucose Urine UA Negative (Negative); Leukocyte Esterase Urine Large (3+) (Negative); Nitrite Urine Negative (Negative); UMIC TRIGGER UA YES; Urine Blood Negative (Negative); Urine Ketones Negative (Negative); Urine Protein Negative (Neg-Trace)
[2023-10-20 13:55] LABS: Bacteria Urine 2+ (None Seen); Hyaline Casts Urine 0-2 /LPF (0-2); RBC Urine 0-2 /HPF (0-2); WBC Urine >50 /HPF (0-5)
[2023-10-20 14:21] LABS: Alanine Aminotransferase 17 U/L (0-31); Albumin Level 4.5 g/dL (3.5-5.0); Alkaline Phosphatase 70 U/L (39-117); Anion Gap 17 (12-20); Aspartate Amino Transferase 19 U/L (5-31); Bilirubin Total 0.7 mg/dL (0.0-1.0); Blood Urea Nitrogen 17 mg/dL (9-16); Calcium 9.8 mg/dL (8.4-10.2); Carbon Dioxide 23 mmol/L (22-29); Chloride 103 mmol/L (96-108); Estimated Glomerular Filt Rate > 60; Glucose Random 96 mg/dL (60-115); Potassium 4.1 mmol/L (3.3-5.1); Sodium 139 mmol/L (135-145); Total Protein 7.3 g/dL (6.5-8.0)
[2023-10-20 14:31] LABS: Thyroid Stimulating Hormone 0.08 uIU/mL (0.32-4.0)
[2023-10-20 14:46] LABS: Erythrocyte Sedimentation Rate 14 MM/HR (0-20)
== END 2023-10-20 12:23 | disposition home or self-care (01) ==
LOC: HO.LAB 12:22
PROVIDERS: PCP Internal Medicine; Visit Provider Psychiatry & Neurology Neurology
DX: R25.1 Tremor, unspecified (principal)
CPT/HCPCS: 36415; 80053; 81001; 84443; 85652

== ENCOUNTER 2023-12-05 08:26 | Outpatient (REF) | payer OTHER, SELFPAY ==
[2023-12-05 11:01] LABS: Appearance Urine Cloudy; Color Urine Yellow; Glucose Urine UA Negative (Negative); Leukocyte Esterase Urine Moderate (2+) (Negative); Nitrite Urine Negative (Negative); PH 5.5 (5.0-9.0); UMIC TRIGGER UACC YES; Urine Blood Negative (Negative); Urine Ketones Negative (Negative); Urine Protein Negative (Neg-Trace)
[2023-12-05 11:05] LABS: Bacteria Urine 2+ (None Seen); Hyaline Casts Urine 0-2 /LPF (0-2); RBC Urine 0-2 /HPF (0-2); UACC Culture Trigger YES
[2023-12-05 11:21] LABS: MANUAL DIFF FLAG NO
[2023-12-05 11:27] LABS: Basophils Percent Auto 0.8 % (0-2); Eosinophils Absolute Auto 0.2 X10*3/uL (0.0-0.4); Eosinophils Percent Auto 5.4 % (0-4); Hematocrit 34.4 % (37.0-47.0); Hemoglobin 11.9 g/dl (12.0-16.0); Lymphocytes Absolute Auto 1.2 X10*3/uL (1.2-4.9); Lymphocytes Percent Auto 31.1 % (20-40); Mean Corpuscular HGB Conc 34.6 g/dl (31.0-35.0); Mean Corpuscular Hemoglobin 33.3 pg (27.0-33.0); Mean Corpuscular Volume 96.4 fL (80.0-98.0); Mean Platelet Volume 10.1 fL (9.4-12.3); Monocytes Absolute Auto 0.3 X10*3/uL (0.1-1.2); Monocytes Percent Auto 7.8 % (2-11); Neutrophils Absolute Auto 2.1 x10*3/uL (2.0-8.3); Neutrophils Percent Auto 54.9 % (45-73); Platelet Count 175 X10*3/uL (160-400); Red Blood Count 3.57 X10*6/uL (4.20-5.50); Red Cell Distribution Width 12.1 % (11.0-16.0); White Blood Count 3.9 X10*3/uL (4.8-10.8)
[2023-12-05 11:49] LABS: Alanine Aminotransferase 15 U/L (0-31); Albumin Level 3.8 g/dL (3.5-5.0); Alkaline Phosphatase 75 U/L (39-117); Anion Gap 12 (12-20); Aspartate Amino Transferase 23 U/L (5-31); Bilirubin Total 0.3 mg/dL (0.0-1.0); Blood Urea Nitrogen 13 mg/dL (9-16); Calcium 9.3 mg/dL (8.4-10.2); Carbon Dioxide 26 mmol/L (22-29); Chloride 110 mmol/L (96-108); Cholesterol 129 mg/dL (<200); Estimated Glomerular Filt Rate > 60; Glucose Fasting 121 mg/dL (60-99); HDL Cholesterol 38 mg/dL (>40); LDL Cholesterol Calculated 62 mg/dL (<100); Sodium 144 mmol/L (135-145); Total Protein 6.3 g/dL (6.5-8.0); Triglycerides 145 mg/dL (<150)
[2023-12-05 11:59] LABS: Thyroid Stimulating Hormone 0.02 uIU/mL (0.32-4.0); Vitamin D 25-OH Total 45.1 ng/mL (>30)
[2023-12-05 12:16] LABS: Folate 12.8 ng/mL (> or = 4.0); Vitamin B12 444 pg/mL (200-900)
== END 2023-12-05 08:27 | disposition home or self-care (01) ==
LOC: HO.HMGCLDS 08:26
PROVIDERS: PCP Internal Medicine; Visit Provider Internal Medicine
DX: D64.9 Anemia, unspecified (principal); E53.8 Deficiency of other specified B group vitamins; E55.9 Vitamin D deficiency, unspecified; E78.00 Pure hypercholesterolemia, unspecified; E03.9 Hypothyroidism, unspecified
CPT/HCPCS: 36415; 80053; 80061; 81001; 81003; 82306; 82607; 82746; 84439; 84443; 85025; 87086

== ENCOUNTER 2023-12-09 12:49 | Outpatient (AMB) | payer OTHER, SELFPAY ==
[2023-12-09 12:56] VITALS: BP 128/76; PULSE 84; O2SAT 95; BMI 24.9
--- NOTE | 2023-12-09 12:56 | A.OFFPC_ITS ---
Vital Signs 12/09/23 12:56 Height 5 ft 2 in Weight 136 lb 0.403 oz BMI 24.9 BP 128/76 Blood Pressure Location Lt brachial Position Sitting Pulse 84 Pulse Source Pulse Oximeter Pulse Oximetry (%) 95 Oxygen Delivery Method Room Air Intake Visit Reasons: 4mof\u Process Pumper Required: No Accompanied by: Self / Same As Patient Allergies No Known Allergies Allergy (Verified 12/09/23 13:17) Medication List - Last Reconciled 12/09/23 by Anurag Ren MD bupropion HCl XL (Wellbutrin XL) 150 mg PO QAM 90 days cholecalciferol (vitamin D3) 50 mcg PO DAILY 90 days clonazepam 1 mg PO BID PRN diphenhydramine HCl (Benadryl Allergy) 1 to 2 tablets up to 3 to 4 times a day as needed folic acid 1 mg PO DAILY haloperidol 1 mg PO BID PRN levothyroxine 75 mcg PO DAILY 90 days lisinopril 20 mg PO DAILY 90 days omeprazole 20 mg PO DAILY simvastatin 40 mg PO BEDTIME 90 days Tobacco use date assessed: 12/09/23 Fall risk assessment: 1 Fall in past year Last assessed Fall Risk: 12/09/23 Dental Screening Dental Screen Date: 12/09/23 Did you have a dental visit in the last 12 months?: No Did you have a dental problem in the last 6 months where you did not have access to dental care?: No Was dental information given to patient?: No HPI 4mof\u HPI Details Patient comes in today for her follow up visit Her family states that she is still mostly the same as before States that she would be doing okay then all of a sudden, would be noted to have trouble walking, with increased shaking all over and has difficulty walking Her states that she was out walking their dog earlier this morning without any problems but shortly after they were getting ready to come here for her appointment, she started shaking all over again and could hardly walk She was started on Bupropion XL 150 mg QD at her last visit and was also started on Clonazepam [address] Enriquez when he saw her a couple of months ago for neurology consultation She was sent for a repeat EEG but this one to be done while she is awake - her states that she had this done a few weeks ago She has a follow up appt scheduled with Dr. Enriquez next month on 01/06/2024 She also appears to have gained back all of the weight she previously lost over the past few months - her states that she eats well Patient denies any headaches or dizziness Denies any chest pains, no increased SOB No nausea/vomiting, no abdominal pain No change in bowel habits noted She had her follow up labs done a few days ago - to discuss her results [facility] Medical History Anxiety Celiac disease Vitamin D deficiency Osteoporosis Allergic rhinitis Pernicious anemia Acquired hypothyroidism Pure hypercholesterolemia Impaired fasting glucose Benign essential hypertension Surgical History History of excision of mass Family History Father No problems noted. Mother No problems noted. Social History Housing: House Alcohol intake: current Alcohol intake frequency: holidays/special occasions only Patient Tobacco Use Status: Current everyday Tobacco user Cigarettes Per Day: 6 e-Cigarette/Vaping Use: Never Used Second Hand Smoke Exposure: Yes service: No Current occupational status: retired Cognitive needs: No Hearing needs: No Vision needs: No Questionnaire PHQ-9 Over the last 2 weeks, how often have you been bothered by any of the following problems? 1. Little interest or pleasure in doing things: not at all 2. Feeling down, depressed, or hopeless: not at all 3. Trouble falling or staying asleep, or sleeping too much: not at all 4. Feeling tired or having little energy: not at all 5. Poor appetite or overeating: not at all 6. Feeling bad about yourself - or that you are a failure or have let yourself or your family down: not at all 7. Trouble concentrating on things, such as reading the newspaper or watching television: not at all 8. Moving or speaking so slowly that other people could have noticed. Or the opposite - being so fidgety or restless that you have been moving around a lot more than usual: not at all 9. Thoughts that you would be better off or of hurting yourself in some way: not at all Total score: 0 Depression Screening Interpretation: Negative Depression Screening Done: Yes 36248 - PHQ-9 Billing: Yes Source: Developed by Drs. Quintin Amato, Alexandra Gusman, Wayne Eng and colleagues, with an educational elisa from [employer]. Thrive Questionnaire Date Thrive assessed: 12/09/23 I am a: Patient What is your living situation today?: I have a steady place to live Within the past 12 months, did the food you bought not last and you didn't have the money to get more?: Never true Within the past 12 months, did you worry whether your food would run out before you got money to buy more?: Never true Do you have trouble paying for medicines?: No Do you have trouble getting transportation to medical appointments?: No Do you have trouble paying your heating and electricity bill?: No Do you have trouble taking care of your child, family member or friend?: No Do you have trouble with day-to-day activities such as bathing, preparing meals, shopping, managing finances, etc.?: No Are you currently unemployed and looking for a job?: No Are you interested in more education?: No Please select the resources that you would like help with: None Currently or been in a relationship where the following occur: No concerns reported THRIVE Score: 0 AUDIT C Alcohol Use Questionnaire (AUDIT-C) 1. How often do you have a drink containing alcohol?: Monthly or less 2. How many drinks containing alcohol do you have on a typical day when you are drinking?: 1 or 2 3. How often do you have six or more drinks on one occasion?: Never Total Score: 1 Score Reviewed/Action Taken: Yes JOHNIE-7 AMB Questionnaire JOHNIE-7 Date JOHNIE - 7 assessed: 12/09/23 Feeling nervous, anxious, or on edge: 0 = Not at all Not being able to stop or control worryin = Not at all Worrying too much about different things: 0 = Not at all Trouble relaxin = Not at all Being so restless that it is hard to sit still: 0 = Not at all Becoming easily annoyed or irritable: 0 = Not at all Feeling afraid as if something awful might happen: 0 = Not at all Total JOHNIE-7 score (0-4 normal; 5-9 mild; 10-14 moderate; 15-21 severe): 0 Source: Developed by Drs. Quintni Amato, Alexandra Gusman, Wayne Eng and colleagues, with an educational elisa from [employer]. Review of Systems Const Denies chills, Denies difficulty sleeping (Rx helping), Reports fatigue, Denies fever(s) and Denies headache(s) ENT Denies dysphagia, Denies dizziness, Denies otalgia, Denies headache(s), Denies neck pain, Denies odynophagia and Denies sore throat Card Denies chest pain, Denies palpitations and Denies dyspnea Resp Denies chest congestion, Denies cough and Denies dyspnea GI Denies abdominal pain, Denies constipation, Denies dysphagia, Denies heartburn, Denies diarrhea, Denies nausea, Denies odynophagia and Denies vomiting Denies difficulty voiding, Denies nocturia, Denies dysuria and Denies urinary urgency Musc Details: (+) shaking all over, including in her legs, making it difficult for her to walk - is using a cane on one hand but still taking a long time to walk due to increased shaking and unsteadiness Denies back pain and Denies neck pain Skin/Breast Denies rash Neuro Reports as per HPI, Reports behavioral changes, Denies dizziness, Denies headache(s) and Reports memory loss Psych Reports as per HPI, Reports anxiety, Reports behavioral changes and Reports memory loss Endo Reports fatigue and Denies palpitations Physical exam (Primary Care) Vital Signs: Last Vital Signs Pulse 84 12/09/23 12:56 BP 128/76 12/09/23 12:56 Pulse Ox 95 12/09/23 12:56 Oxygen Delivery Method Room Air 12/09/23 12:56 BMI result Body Mass Index 24.9 Tobacco/Smoking Status: Tobacco use Status Tobacco use date assessed 12/09/23 12/09/23 13:04 Patient Tobacco Use Status Current everyday Tobacco 12/09/23 13:04 e-Cigarette/Vaping Use Never Used 12/09/23 13:04 PHQ-9: PHQ-9 Score PHQ-9: Total score 0 12/09/23 13:04 Depression Screening Interpretation: Negative Thrive Assessment: Date of Thrive Assessment Date Thrive assessed 12/09/23 12/09/23 13:04 Currently or been in a relationship where the following occur: No concerns reported Const General: anxious Orientation/consciousness: patient oriented x3 HENMT Throat: Yes posterior oropharynx normal and Yes tonsils normal (no TP conge stion) Neck Neck: Yes no lymphadenopathy and Yes supple Thyroid: Thyroid normal Resp Auscultation: clear to auscultation bilaterally, no rales and no wheezes Cardio Rate: regular rate Rhythm: regular rhythm Heart sounds: no murmurs GI Palpation (GI): Soft to palpation and nontender Auscultation: normal bowel sounds General: Yes no CVA tenderness Back/Spine/Pelvis Back: no CVA tenderness Thoracic/Lumbar Spine: No lumbar spinal tenderness Skin Rashes: no rashes Neuro Other: on and off shaking / tremors of hands, right leg, whole body General: patient oriented x3 Gait exam (Neuro): Staggering gait present (due to tremors/shaking) Extrem General: Yes no clubbing, cyanosis or edema Results Reviewed Results Reviewed: Laboratory Tests 12/05/23 08:30 WBC 3.9 L Hgb 11.9 L Hct 34.4 L Plt Count 175 Sodium 144 Potassium 4.0 Creatinine 0.87 Estimated GFR > 60 Fasting Glucose 121 H Calcium 9.3 AST 23 ALT 15 Triglycerides 145 Cholesterol 129 LDL Cholesterol, Calc 62 HDL Cholesterol 38 L Vitamin B12 444 25-OH Vitamin D Total 45.1 TSH 0.02 L Free T4 1.00 Ur Specific [place] 1.020 Urine Protein Negative Urine Glucose (UA) Negative Urine Blood Negative Urine Nitrite Negative Ur Leukocyte Esterase Moderate (2+) H Assessment and Plan Assessment & Plan (1) Anxiety: Code(s): F41.9 - Anxiety disorder, unspecified Plan: Have reassured patient and her family that all of the work ups that she's had done over the past few months have been normal, and that majority of her symptoms are likely due to (severe) anxiety She was started on Clonazepam 1 mg BID PRN by Dr. Enriquez a couple of months ago, which they states seem to be helping We will also now increase her Wellbutrin XL from 150 mg to 300 mg QD and continue her on Benadryl 25 mg 1 to 2 tablets up to 4 times a day as needed They can still continue giving her Haldol 1 mg BID PRN but would again have them give that only as a last resort and if Benadryl is not helping her Follow up with Dr. Enriquez as scheduled next month (2) Celiac disease: Code(s): K90.0 - Celiac disease Plan: Her celiac disease testing done a few months ago came back positive, as evidence by an elevated tissue transglutaminase IgA level of 30.4 U/ml Patient states that her GI symptoms and bowel movements are all back to normal as soon as she started herself on a gluten-free diet, and she is advised to stay on this diet Follow up with GI as scheduled (3) Benign essential hypertension: Code(s): I10 - Essential (primary) hypertension Plan: Reinforced low sodium diet - goal is systolic BP of at least 130 to 140 mm or less Continue Lisinopril 20 mg QD (4) Pure hypercholesterolemia: Code(s): E78.00 - Pure hypercholesterolemia, unspecified Plan: Results of her labs done a few days ago reviewed and discussed with patient and her Reinforced low cholesterol diet Continue Simvastatin 40 mg QD Will recheck her labs and fasting lipids in 4 months for follow up (5) Acquired hypothyroidism: Comment: (+) Shiv's Code(s): E03.9 - Hypothyroidism, unspecified Plan: Her TFTs done a few days ago still shows a low/suppressed TSH level but her free T4 remains normal Continue Levothyroxine 75 mcg QD Will recheck her TFTs in 4 months for follow up (6) Impaired fasting glucose: Code(s): R73.01 - Impaired fasting glucose Plan: HgbA1c was normal at 5.2% and 5.3% when checked previously; FBS was again elevated at 121 mg/dl on her labs done a few days ago Reinforced low calorie diet/exercise as tolerated (7) Pernicious anemia: Code(s): D51.0 - Vitamin B12 deficiency anemia due to intrinsic factor deficiency Plan: Her B12 level was normal on her recent labs Continue Vitamin B12 tablets 1000 mcg QD (8) Vitamin D deficiency: Code(s): E55.9 - Vitamin D deficiency, unspecified Plan: Continue Vitamin D3 2000 units QD (9) Osteoporosis: Code(s): M81.0 - Age-related osteoporosis without current pathological fracture Qualifiers: Osteoporosis type: age-related Presence of current pathological fracture: without current pathological fracture Qualified Code(s): M81.0 - Age- related osteoporosis without current pathological fracture Plan: Repeat BMD done on 03/22/2021 showed a slight decreased from previous BMD in the lumbar spine; BMD in the femur remains unchanged from previous Patient is again encouraged on regular exercise and physical activity and continue daily Calcium and Vitamin D supplements Fall precautions reinforced Will continue to monitor her BMD every 2 to 3 years (10) Allergic rhinitis: Code(s): J30.9 - Allergic rhinitis, unspecified Qualifiers: Allergic rhinitis trigger: unspecified Allergic rhinitis seasonality: unspecified Qualified Code(s): J30.9 - Allergic rhinitis, unspecified Plan: Continue Loratadine 10 mg QD PRN Plan Follow up in 4 months Orders: Orders Thyroid Stimulating Hormone 4 Months E03.9 - Hypothyroidism, unspecified Hemoglobin A1c 4 Months R73.01 - Impaired fasting glucose Vitamin D 25-OH Total 4 Months E55.9 - Vitamin D deficiency, unspecified Complete Blood Count Auto Diff 4 Months D64.9 - Anemia, unspecified Lipid Panel 4 Months E78.00 - Pure hypercholesterolemia, unspecified Comprehensive Fosters. Panel Fast 4 Months E78.00 - Pure hypercholesterolemia, unspecified Free T4 (Free Thyroxine) 4 Months E03.9 - Hypothyroidism, unspecified Medications: Changed From bupropion HCl XL (Wellbutrin XL) 150 mg PO QAM 90 days 90 tabs 1RF depression/anxiety To bupropion HCl XL 300 mg PO QAM 90 days 90 tabs 1RF depression/anxiety Coding Level of Care Code Est Pt Level 4 (40317) Complex EM visit Add On G2211 Diagnoses Anxiety F41.9 Celiac disease K90.0 Benign essential hypertension I10 Pure hypercholesterolemia E78.00 Acquired hypothyroidism E03.9 Impaired fasting glucose R73.01 Pernicious anemia D51.0 Vitamin D deficiency E55.9 Age-related osteoporosis without current pathological fracture M81.0 Osteoporosis type: age-related Presence of current pathological fracture: without current pathological fracture Allergic rhinitis, unspecified seasonality, unspecified trigger J30.9 Allergic rhinitis trigger: unspecified Allergic rhinitis seasonality: unspecified
== END 2023-12-09 13:37 | disposition home or self-care (01) ==
PROVIDERS: PCP Internal Medicine; Visit Provider Internal Medicine
DX: F41.9 Anxiety disorder, unspecified (principal); K90.0 Celiac disease; I10 Essential (primary) hypertension; E78.00 Pure hypercholesterolemia, unspecified; E03.9 Hypothyroidism, unspecified; R73.01 Impaired fasting glucose; D51.0 Vitamin B12 deficiency anemia due to intrinsic factor deficiency; E55.9 Vitamin D deficiency, unspecified; M81.0 Age-related osteoporosis without current pathological fracture; J30.9 Allergic rhinitis, unspecified

== ENCOUNTER → 2023-12-09 12:50 | Outpatient (BNVA) | payer OTHER, SELFPAY | PROVIDERS: PCP Internal Medicine; Visit Provider Internal Medicine | DX: F41.9 Anxiety disorder, unspecified (principal); K90.0 Celiac disease; I10 Essential (primary) hypertension; E78.00 Pure hypercholesterolemia, unspecified; R73.01 Impaired fasting glucose; E55.9 Vitamin D deficiency, unspecified; D51.0 Vitamin B12 deficiency anemia due to intrinsic factor deficiency; M81.0 Age-related osteoporosis without current pathological fracture; J30.9 Allergic rhinitis, unspecified | CPT/HCPCS: 99212 ==

== ENCOUNTER 2024-04-01 09:22 | Outpatient (REF) | payer OTHER, SELFPAY ==
[2024-04-01 10:15] LABS: MANUAL DIFF FLAG NO
[2024-04-01 10:25] LABS: Basophils Absolute Auto 0.1 X10*3/uL (0.0-0.2); Basophils Percent Auto 1.3 % (0-2); Eosinophils Absolute Auto 0.3 X10*3/uL (0.0-0.4); Eosinophils Percent Auto 7.2 % (0-4); Hematocrit 37.5 % (37.0-47.0); Imm Gran Abs Auto 0.01 X10*3/uL (0.00-0.03); Imm Gran Pct Auto 0.2 % (0.0-0.4); Lymphocytes Absolute Auto 1.7 X10*3/uL (1.2-4.9); Lymphocytes Percent Auto 36.2 % (20-40); Mean Corpuscular HGB Conc 34.7 g/dl (31.0-35.0); Mean Corpuscular Hemoglobin 31.9 pg (27.0-33.0); Mean Corpuscular Volume 91.9 fL (80.0-98.0); Mean Platelet Volume 9.5 fL (9.4-12.3); Monocytes Absolute Auto 0.4 X10*3/uL (0.1-1.2); Monocytes Percent Auto 8.3 % (2-11); Neutrophils Absolute Auto 2.1 x10*3/uL (2.0-8.3); Neutrophils Percent Auto 46.8 % (45-73); Platelet Count 177 X10*3/uL (160-400); Red Blood Count 4.08 X10*6/uL (4.20-5.50); Red Cell Distribution Width 12.8 % (11.0-16.0); White Blood Count 4.6 X10*3/uL (4.8-10.8)
[2024-04-01 10:38] LABS: Estimated Average Glucose 111 mg/dL; Hemoglobin A1C 123.7723 umol/L; Hemoglobin A1c % 5.5 % (<6.0); Total Hemoglobin (HGBA1C) 3380.2043 umol/L
[2024-04-01 11:30] LABS: Alanine Aminotransferase 45 U/L (0-31); Alkaline Phosphatase 68 U/L (39-117); Anion Gap 9 (12-20); Aspartate Amino Transferase 32 U/L (5-31); Bilirubin Total 0.4 mg/dL (0.0-1.0); Blood Urea Nitrogen 8 mg/dL (9-16); Calcium 8.7 mg/dL (8.4-10.2); Carbon Dioxide 29 mmol/L (22-29); Chloride 109 mmol/L (96-108); Cholesterol 164 mg/dL (<200); Estimated Glomerular Filt Rate > 60; Glucose Fasting 105 mg/dL (60-99); HDL Cholesterol 46 mg/dL (>40); LDL Cholesterol Calculated 101 mg/dL (<100); Potassium 4.4 mmol/L (3.3-5.1); Sodium 143 mmol/L (135-145); Total Protein 6.8 g/dL (6.5-8.0); Triglycerides 86 mg/dL (<150)
[2024-04-01 11:31] LABS: Free T4 (Free Thyroxine) 0.92 ng/dL (0.71-1.85); Thyroid Stimulating Hormone 0.06 uIU/mL (0.32-4.0)
== END 2024-04-01 09:23 | disposition home or self-care (01) ==
LOC: HO.HMGCLDS 09:22
PROVIDERS: PCP Internal Medicine; Visit Provider Internal Medicine
DX: D64.9 Anemia, unspecified (principal); E03.9 Hypothyroidism, unspecified; E55.9 Vitamin D deficiency, unspecified; R73.01 Impaired fasting glucose; E78.00 Pure hypercholesterolemia, unspecified
CPT/HCPCS: 36415; 80053; 80061; 82306; 83036; 84439; 84443; 85025

== ENCOUNTER 2024-04-11 14:07 | Outpatient (AMB) | payer OTHER, SELFPAY ==
[2024-04-11 14:16] VITALS: BP 132/76; PULSE 76; O2SAT 98; BMI 26.2
--- NOTE | 2024-04-11 14:16 | MHC.PC.OV ---
Vital Signs 04/11/24 14:16 Height 5 ft 2 in Weight 143 lb BMI 26.2 BP 132/76 Blood Pressure Location Lt brachial Position Sitting Pulse 76 Pulse Source Pulse Oximeter Pulse Oximetry (%) 98 Oxygen Delivery Method Room Air Intake Visit Reasons: 4 Months f/u Log Grader Required: No Accompanied by: Self / Same As Patient Allergies No Known Allergies Allergy (Verified 04/11/24 14:44) Medication List - Last Reconciled 04/11/24 by Anurag Ren MD bupropion HCl XL 300 mg PO QAM 90 days cholecalciferol (vitamin D3) 50 mcg PO DAILY 90 days diphenhydramine HCl (Benadryl Allergy) 1 to 2 tablets up to 3 to 4 times a day as needed folic acid 1 mg PO DAILY haloperidol 1 mg PO BID PRN levothyroxine 75 mcg PO DAILY 90 days lisinopril 20 mg PO DAILY 90 days omeprazole 20 mg PO DAILY simvastatin 40 mg PO BEDTIME 90 days Tobacco use date assessed: 04/11/24 Fall risk assessment: No Falls in past year Last assessed Fall Risk: 04/11/24 Dental Screening Dental Screen Date: 04/11/24 Did you have a dental visit in the last 12 months?: No Did you have a dental problem in the last 6 months where you did not have access to dental care?: No Was dental information given to patient?: No HPI 4 Months f/u HPI Details Patient comes in today for her follow-up visit Her family states that she continues to have on and off episodes of sudden onset of generalized stiffness and trouble walking, with increased shaking all over and increased weakness Patient states that she herself does not know what is going on and is getting frustrated at the recurrence of her symptoms Patient states that other than the above symptoms, she feels okay She denies any headaches or dizziness Denies any chest pains, no shortness of breath No nausea/vomiting, no abdominal pain No change in bowel habits noted She had her follow-up labs done a couple of weeks ago - to discuss the results [facility] Medical History Anxiety Celiac disease Vitamin D deficiency Osteoporosis Allergic rhinitis Pernicious anemia Acquired hypothyroidism Pure hypercholesterolemia Impaired fasting glucose Benign essential hypertension Surgical History History of excision of mass Family History Father No problems noted. Mother No problems noted. Social History Housing: House Alcohol intake: current Alcohol intake frequency: holidays/special occasions only Patient Tobacco Use Status: Current everyday Tobacco user Cigarettes Per Day: 6 e-Cigarette/Vaping Use: Never Used Second Hand Smoke Exposure: Yes service: No Current occupational status: retired Cognitive needs: No Hearing needs: No Vision needs: No Questionnaire PHQ-9 Over the last 2 weeks, how often have you been bothered by any of the following problems? 1. Little interest or pleasure in doing things: not at all 2. Feeling down, depressed, or hopeless: not at all 3. Trouble falling or staying asleep, or sleeping too much: not at all 4. Feeling tired or having little energy: not at all 5. Poor appetite or overeating: not at all 6. Feeling bad about yourself - or that you are a failure or have let yourself or your family down: not at all 7. Trouble concentrating on things, such as reading the newspaper or watching television: not at all 8. Moving or speaking so slowly that other people could have noticed. Or the opposite - being so fidgety or restless that you have been moving around a lot more than usual: not at all 9. Thoughts that you would be better off or of hurting yourself in some way: not at all Total score: 0 Depression Screening Interpretation: Negative Depression Screening Done: Yes [id number] - PHQ-9 Billing: Yes Source: Developed by Drs. Quintin Amato, Alexandra Gusman, Wayne Eng and colleagues, with an educational elisa from [employer]. Thrive Questionnaire Date Thrive assessed: 04/11/24 I am a: Patient What is your living situation today?: I have a steady place to live Within the past 12 months, did the food you bought not last and you didn't have the money to get more?: Never true Within the past 12 months, did you worry whether your food would run out before you got money to buy more?: Never true Do you have trouble paying for medicines?: No Do you have trouble getting transportation to medical appointments?: No Do you have trouble paying your heating and electricity bill?: No Do you have trouble taking care of your child, family member or friend?: No Do you have trouble with day-to-day activities such as bathing, preparing meals, shopping, managing finances, etc.?: No Are you currently unemployed and looking for a job?: No Are you interested in more education?: No Please select the resources that you would like help with: None Currently or been in a relationship where the following occur: No concerns reported THRIVE Score: 0 AUDIT C Alcohol Use Questionnaire (AUDIT-C) 1. How often do you have a drink containing alcohol?: Monthly or less 2. How many drinks containing alcohol do you have on a typical day when you are drinking?: 1 or 2 3. How often do you have six or more drinks on one occasion?: Never Total Score: 1 Score Reviewed/Action Taken: Yes JOHNIE-7 AMB Questionnaire JOHNIE-7 Date JOHNIE - 7 assessed: 04/11/24 Feeling nervous, anxious, or on edge: 0 = Not at all Not being able to stop or control worryin = Not at all Worrying too much about different things: 0 = Not at all Trouble relaxin = Not at all Being so restless that it is hard to sit still: 0 = Not at all Becoming easily annoyed or irritable: 0 = Not at all Feeling afraid as if something awful might happen: 0 = Not at all Total JOHNIE-7 score (0-4 normal; 5-9 mild; 10-14 moderate; 15-21 severe): 0 Source: Developed by Drs. Quintin Amato, Alexandra Gusman, Wayne Eng and colleagues, with an educational elisa from [employer]. Review of Systems Const Denies chills, Denies difficulty sleeping (Rx helping), Reports fatigue, Denies fever(s) and Denies headache(s) ENT Denies dysphagia, Denies dizziness, Denies otalgia, Denies headache(s), Denies neck pain, Denies odynophagia and Denies sore throat Card Denies chest pain, Denies palpitations and Denies dyspnea Resp Denies chest congestion, Denies cough and Denies dyspnea GI Denies abdominal pain, Denies constipation, Denies dysphagia, Denies heartburn, Denies diarrhea, Denies nausea, Denies odynophagia and Denies vomiting Denies difficulty voiding, Denies nocturia, Denies dysuria and Denies urinary urgency Musc Details: (+) shaking all over, including in her legs, making it difficult for her to walk - is using a cane on one hand but still taking a long time to walk due to increased shaking and unsteadiness Denies back pain and Denies neck pain Skin/Breast Denies rash Neuro Reports as per HPI, Reports behavioral changes, Denies dizziness, Denies headache(s) and Reports memory loss Psych Reports as per HPI, Reports anxiety, Reports behavioral changes and Reports memory loss Endo Reports fatigue and Denies palpitations Physical exam (Primary Care) Vital Signs: Last Vital Signs Pulse 76 04/11/24 14:16 BP 132/76 04/11/24 14:16 Pulse Ox 98 04/11/24 14:16 Oxygen Delivery Method Room Air 04/11/24 14:16 BMI result Body Mass Index 26.2 Tobacco/Smoking Status: Tobacco use Status Tobacco use date assessed 04/11/24 04/11/24 14:22 Patient Tobacco Use Status Current everyday Tobacco 04/11/24 14:19 e-Cigarette/Vaping Use Never Used 04/11/24 14:19 PHQ-9: PHQ-9 Score PHQ-9: Total score 0 04/11/24 14:47 Depression Screening Interpretation: Negative Thrive Assessment: Date of Thrive Assessment Date Thrive assessed 04/11/24 04/11/24 14:29 Currently or been in a relationship where the following occur: No concerns reported Const General: anxious Orientation/consciousness: patient oriented x3 HENMT Throat: Yes posterior oropharynx normal and Yes tonsils normal (no TP congestion) Neck Neck: Yes no lymphadenopathy and Yes supple Thyroid: Thyroid normal Resp Auscultation: clear to auscultation bilaterally, no rales and no wheezes Cardio Rate: regular rate Rhythm: regular rhythm Heart sounds: no murmurs GI Palpation (GI): Soft to palpation and nontender Auscultation: normal bowel sounds General: Yes no CVA tenderness Back/Spine/Pelvis Back: no CVA tenderness Thoracic/Lumbar Spine: No lumbar spinal tenderness Skin Rashes: no rashes Neuro Other: on and off shaking / tremors of hands, right leg, whole body General: patient oriented x3 Gait exam (Neuro): Staggering gait present (due to tremors/shaking) Extrem General: Yes no clubbing, cyanosis or edema Results Reviewed Results Reviewed: Laboratory Tests 04/01/24 09:27 WBC 4.6 L Hgb 13.0 Hct 37.5 Plt Count 177 Sodium 143 Potassium 4.4 Creatinine 0.79 Estimated GFR > 60 Fasting Glucose 105 H Hemoglobin A1c % 5.5 Calcium 8.7 D AST 32 H ALT 45 H Triglycerides 86 Cholesterol 164 LDL Cholesterol, Calc 101 H HDL Cholesterol 46 25-OH Vitamin D Total 35.0 TSH 0.06 L Free T4 0.92 Coding Level of Care Code Est Pt Level 4 (02489) Diagnoses Anxiety F41.9 Celiac disease K90.0 Benign essential hypertension I10 Pure hypercholesterolemia E78.00 Acquired hypothyroidism E03.9 Impaired fasting glucose R73.01 Pernicious anemia D51.0 Vitamin D deficiency E55.9 Age-related osteoporosis without current pathological fracture M81.0 Osteoporosis type: age-related Presence of current pathological fracture: without current pathological fracture Allergic rhinitis, unspecified seasonality, unspecified trigger J30.9 Allergic rhinitis trigger: unspecified Allergic rhinitis seasonality: unspecified Additional Codes PHQ-9 - 27428 - PHQ-9 Billing: Yes ([id number]) Assessment & Plan Assessment & Plan (1) Anxiety: Code(s): F41.9 - Anxiety disorder, unspecified Category: Medical Plan: All of patient's recent work ups over the past few months have been normal, and majority of her symptoms of recurrent stiffness and inability to move are likely due to (severe) anxiety Continue Wellbutrin XL 300 mg QD and continue her on Benadryl 25 mg 1 to 2 tablets up to 4 times a day as needed Her family has been advised that they can still continue giving her Haldol 1 mg BID PRN but would have them give that only as a last resort and if Benadryl is not helping her Follow up with Dr. Enriquez as scheduled (2) Celiac disease: Code(s): K90.0 - Celiac disease Category: Medical Plan: Her celiac disease testing done last year came back positive, as evidence by an elevated tissue transglutaminase IgA level of 30.4 U/ml Patient states that her GI symptoms and bowel movements are all back to normal as soon as she started herself on a gluten-free diet, and she is advised to stay on this diet (3) Benign essential hypertension: Code(s): I10 - Essential (primary) hypertension Category: Medical Plan: Reinforced low sodium diet - goal is systolic BP of at least 130 to 140 mm or less Continue Lisinopril 20 mg QD (4) Pure hypercholesterolemia: Code(s): E78.00 - Pure hypercholesterolemia, unspecified Category: Medical Plan: Results of her labs done a few days ago reviewed and discussed with patient and her Reinforced low cholesterol diet Continue Simvastatin 40 mg QD Will recheck her labs and fasting lipids in 4 months for follow up (5) Acquired hypothyroidism: Comment: (+) Shiv's Code(s): E03.9 - Hypothyroidism, unspecified Category: Medical Plan: Her TFTs done a few days ago still shows a low/suppressed TSH level but her free T4 remains normal Continue Levothyroxine 75 mcg QD Will recheck her TFTs in 4 months for follow up (6) Impaired fasting glucose: Code(s): R73.01 - Impaired fasting glucose Category: Medical Plan: Her HgbA1c was normal at 5.5% on her recent labs; HgbA1c was also normal at 5.2% and 5.3% when checked previously FBS was slightly elevated at 105 mg/dl on her labs done a few days ago Reinforced low calorie diet/exercise as tolerated (7) Pernicious anemia: Code(s): D51.0 - Vitamin B12 deficiency anemia due to intrinsic factor deficiency Category: Medical Plan: Her B12 level was normal on her recent labs Continue Vitamin B12 tablets 1000 mcg QD (8) Vitamin D deficiency: Code(s): E55.9 - Vitamin D deficiency, unspecified Category: Medical Plan: Continue Vitamin D3 2000 units QD (9) Osteoporosis: Code(s): M81.0 - Age-related osteoporosis without current pathological fracture Category: Medical Qualifiers: Osteoporosis type: age-related Presence of current pathological fracture: without current pathological fracture Qualified Code(s): M81.0 - Age-related osteoporosis without current pathological fracture Plan: Repeat BMD done on 03/22/2021 showed a slight decreased from previous BMD in the lumbar spine; BMD in the femur remains unchanged from previous Patient is again encouraged on regular exercise and physical activity and continue daily Calcium and Vitamin D supplements Fall precautions reinforced Will continue to monitor her BMD every 2 to 3 years (10) Allergic rhinitis: Code(s): J30.9 - Allergic rhinitis, unspecified Category: Medical Qualifiers: Allergic rhinitis trigger: unspecified Allergic rhinitis seasonality: unspecified Qualified Code(s): J30.9 - Allergic rhinitis, unspecified Plan: Continue Loratadine 10 mg QD PRN Plan Follow-up in 4 months Orders: Orders Comprehensive [place]. Panel Fast 4 Months E78.00 - Pure hypercholesterolemia, unspecified Thyroid Stimulating Hormone 4 Months E03.9 - Hypothyroidism, unspecified Vitamin D 25-OH Total 4 Months E55.9 - Vitamin D deficiency, unspecified TSH reflex Free T4 4 Months E78.00 - Pure hypercholesterolemia, unspecified Complete Blood Count Auto Diff 4 Months D64.9 - Anemia, unspecified Lipid Panel 4 Months E78.00 - Pure hypercholesterolemia, unspecified Free T4 (Free Thyroxine) 4 Months E03.9 - Hypothyroidism, unspecified UA CC w/rflx Micro + Cult 4 Months R30.0 - Dysuria
--- OUTSIDE RECORDS SUMMARY | 2024-04-11 18:37 | XMS_ITS ---
Author Organization [facility] [place] Address [address] [facility] [place] [address] Care Team Providers Care Plumber Helper Name Role Phone Ovidio Ren MDneth Primary Care Provider Rosangela LinderKristine Unavailable [phone] Allergies No Known Allergies REASON FOR VISIT PCP - 11/18/2022, Fungal Nails, Heel pain Medications Medication SIG (Take, Route, Frequency, Duration) Notes Start Date End Date Status Ciclopirox 0.77 % 1 application Externally Twice a day for 365 days Active Night Splint AFO - L1930 1 wear at rest for 30 days Active Eucerin Plus 2.5-10 % as directed Externally 04/30 Active Simvastatin 40 MG 1 tablet in the even ing Orally Once a day for 30 day(s) Active Ibuprofen 400 MG 1 tablet with food o r milk as needed Orally Three times a day 09/27/2021 Not-Taking Night Splint AFO - L1930 as directed 01/08/2022 Active Vitamin D3 50 MCG (1999 UT) 1 capsule Orally Once a day for 30 day(s) Active Physical Therapy . . . 2-3x/week for 3- 4 weeks 09/27/2021 Active Lisinopril 20 MG 1 tablet Orally Once a day for 30 day(s) Active Levothyroxine Sodium 88 MCG 1 tablet in the morning on an empty stomach Orally Once a day for 30 day(s) Active Vitamin B12 1000 MCG 1 tablet Orally Onc e a day for 30 day(s) Active Social History Tobacco Use: Social History Observation Description Date Details (start date - stop date) Current Smoker NA - NA Tobacco Use/Smoking Question Answer Notes Are you a: current smoker How many cigarettes a day do you smoke? 6-10 Are you interested in quitting? Thinking about q uitting Additional Findings: Tobacco User Modera te cigarette smoker (10-19 cigs/day) Alcohol Screen Question Answer Notes Did you have a drink contain ing alcohol in the past year? Yes How often did you have a dri nk containing alcohol in the past year? Monthly or less (1 point) Points 1 Interpretation Negative Tobacco use other than smoking: Question Answer Notes Are you an other tobacco user? No Vital Signs Height 5ft 3in in 12/15/2022 Weight 125 lbs 12/15/2022 BMI 22.14 kg/m2 12/15/2022 Encounters Encounter Location Date Provider Diagnosis [facility] [address] [place] [address] 12/15/2022 Marguerite Black Fungal infection of nail B35.1 ; Plantar fasciitis, bilateral M72.2 ; Pain of toe of right foot M79.674 ; Pain of toe of left foot M79.675 ; Pain in right foot M79.671 ; Bursitis of right foot M77.51 ; Pain in left foot M79.672 and Bursitis of left foot M77.52 Assessments Encounter Date Diagnosis (ICD Code) Assessment Notes Treatment Notes Treatment Clinical Notes Section Notes 12/15/2022 Fungal infection of nail (ICD-10 - B35.1) 12/15/2022 Plantar fasciitis, bilateral (ICD-10 - M72.2) Patient Educated with: HEEL CORD STRETCHES.pdf (HEEL CORD STRETCHES.pdf) Patient Educated with: RICE THERAPY.pdf (RICE THERAPY.pdf) 12/15/2022 Pain of toe of right foot (ICD-10 - M79.674) 12/15/2022 Pain of toe of left foot (ICD-10 - M79.675) 12/15/2022 Pain in right foot (ICD-10 - M79.671) 12/15/2022 Bursitis of right foot (ICD-10 - M77.51) 12/15/2022 Pain in left foot (ICD-10 - M79.672) 12/15/2022 Bursitis of left foot (ICD-10 - M77.52) Plan Of Treatment Medication Medication Name Sig Start Date Stop Date Notes Ciclopirox 0.77 % 1 application Concession Worker ally Twice a day for 365 days Night Splint AFO - L1930 1 wear at rest for 30 days Treatment Notes Assessment Notes Plantar fasciitis, bilateral Patient Edu cated with: HEEL CORD STRETCHES.pdf (HEEL CORD STRETCHES.pdf) Patient Educated with: RICE THERAPY.pdf (RICE THERAPY.pdf) Next Appt Details Follow Up: prn, Reason: Procedure Notes * Category Sub-Category Detail Notes Debride Nails 1-5 Procedure: Nail debrideme nt performed extensively to reduce/remove overall nail length and girth, subungual debris, and necrotic tissue, by manual and electrical means with use of a nail nipper and/or dremel, to more viable healthy nail plate or bed tissue 1-5. Silver nitrate used for any petechial bleeding as necessary (86477). Patient chooses , to cont , topical antifungal Progress Notes * Hussein DESAIB:[birth year] (72 yo F)Acc No.[id number]:12/15/2022 Progress Note Patient:?Mar Desai Provider:?Marguerite Linder DPM :1950???Age:72 Y???Sex:Female D ate:12/15/2022 Address:[address] [place], [place] [id number] Pcp:Anurag Ren MD Subjective: * Chief Complaints: * ???PCP - 11/18/2022Fungal Na ilsHeel pain * HPI: ???Painful Nails:?Nature:?aching, tender, discolored, thick.?Location:?Great toe , 5th toe , Both feet.?Duration:?1 year or more.?Course:?improved at 20%.?Aggrevated by:?shoegear causing difficulty standing/walking.?Treatments:?Vicks vapo rub , Coclopirox topical gel.?Heel pain:?Nature:?tenderness, sharp pain, stiffness.?Location:?Proximal plantar aspect of Heel , B/L.?Course:?, intermittent.?Aggrevated:?standing, walking, walking first thing in the morning/after rest.?Treatments:?rest.? * ROS:?General/Constitutional:?Nausea?denies.?Vomiting?denies.?Hunger Thirst?denies.?Loss appetite?denies.?Chills?denies.?Fatigue?denies.?Fever?denies.?Night Sweats?denies.?Unexplained weight loss?denies.?Unexplained weight gain?denies.?HEENTM:?Dentures?admits.?Dizziness?denies.?Glasses/contacts?denies.?Retinopathy?de nies.?Blurred/double vision?denies.?TMJ?denies.?Discharge/drainage?denies.?Implants?denies.?Sore throat?denies.?Dental implants?denies.?Hard of hearing ?denies.?Difficulty chewing/swallowing/speaking?denies.?Nose bleeds?denies.?Sore mouth?denies.?Respiratory:?On Oxygen?denies.?Pneumonia/pleurisy?denies.?Bronchitis?denies.?Emphysema?denies.?C oughing?denies.?Cough blood?denies.?Shortness of breath?denies.?Wheezing?denies.?Cardiovascular:?Pacemaker?denies.?MVP?denies.?WPW?denies.?CHF?denies.?Heart attack?denies.?Septal defect?denies.?Rapid beat?denies.?Chest pain ?denies.?Atrial Fib.?denies.?Murmur/Palpitations?denies.?Gastrointestinal:?Hemorrhoids?denies.?Stomach/Abdominal pain?denies.?Dark blood stool?denies.?Irritable bowel ?denies.?Constipation?denies.?Diarrhea?denies.?Hematology:?Swelling?denies.?Clots?denies.?Varicose Veins?denies.?Bruising?denies.?Bleeding problem?denies.?Genitourinary:?Blood urine?denies.?Frequent/Painfu/urination/bladder control?denies.?Kidney stones?denies.?Infection (UTI)?denies.?Nephropathy?denies.?sex trans dis (STD)?denies.?Prostate?denies.?Musculoskeletal:?Hammertoes?denies.?Bunions?denies.?Back Pain?denies.?Muscle Cramps/ Resting?denies.?Muscle cramps / walking?denies.?Generalized aches and pains?denies.?Weakness?denies.?Integ.:?Newell?denies.?Scars?denies.?Corns/calluses?denies.?Ingrown nails?denies.?Painful nails?admits.?Open Sores?denies.?Rashes?denies.?Neurologic:?Difficulty sleeping?denies.?Brain disorder?denies.?Numbness?denies.?Balance trouble?denies.?Confusion?denies.?Fainting/blackouts?denies.?Tingling?denies.?Tr emors?denies.? * Medical History:? * Surgical History:?excision o f mass * Hospitalization/Major Diagno stic Procedure:?Denies Past Hospitalization * Family History:?Mother: dece ased, diagnosed with Diabetic - NIDDM.?Father: .?Siblings: unknown, diagnosed with Other malignant neoplasm of unspecified site.? * Social History:?Tobacco Use:?Tobacco Use/Smoking?Are you a:?current smoker ?How many cigarettes a day do you smoke??6-10 ?Are you interested in quitting??Thinking about quitting ?Additional Findings: Tobacco User?Moderate cigarette smoker (10-19 cigs/day) ?Tobacco use other than smoking?Are you an other tobacco user??No ???Drugs/Alcohol:?Drugs?Have you used drugs other than those for medical reasons in the past 12 months??No ?Alcohol Screen?Did you have a drink containing alcohol in the past year??Yes ?How often did you have a drink containing alcohol in the past year??Monthly or less (1 point) ?Points?1 ?Interpretation?Negative * Medications:?TakingSimvastat in 40 MG Tablet 1 tablet in the evening Orally Once a dayVitamin B12 1000 MCG Tablet Extended Release 1 tablet Orally Once a dayLisinopril 20 MG Tablet 1 tablet Orally Once a dayLevothyroxine Sodium 88 MCG Tablet 1 tablet in the morning on an empty stomach Orally Once a dayVitamin D3 50 MCG (2000 UT) Capsule 1 capsule Orally Once a dayPhysical Therapy . . . . 2-3x/weekNight Splint AFO - L1930 as directed Eucerin Plus 2.5-10 % Cream as directed Externally Ciclopirox 0.77 % Gel 1 application Externally Twice a dayTaking Simvastatin 40 MG Tablet 1 tablet in the evening Orally Once a dayTaking Vitamin B12 1000 MCG Tablet Extended Release 1 tablet Orally Once a dayTaking Lisinopril 20 MG Tablet 1 tablet Orally Once a dayTaking Levothyroxine Sodium 88 MCG Tablet 1 tablet in the morning on an empty stomach Orally Once a dayTaking Vitamin D3 50 MCG (2000 UT) Capsule 1 capsule Orally Once a dayTaking Physical Therapy . . . . 2-3x/weekTaking Night Splint AFO - L1930 as directed Taking Eucerin Plus 2.5-10 % Cream as directed Externally Taking Ciclopirox 0.77 % Gel 1 application Externally Twice a dayNot-Taking/PRNIbuprofen 400 MG Tablet 1 tablet with food or milk as needed Orally Three times a dayMedication List reviewed and reconciled with the patientNot-Taking/PRN Ibuprofen 400 MG Tablet 1 tablet with food or milk as needed Orally Three times a dayMedication List reviewed and reconciled with the patient * Allergies:?N.K.D.A.yes[Aller gies Verified] Objective: * Vitals:?Ht: 5ft 3in, Wt:125, BMI:22.14, Shoe size: 6.5, Ht-cm: 160.02 cm, Wt-k.7 kg. * Examination: ???Nails: ?NAILS are:?Elongated, overgrown, dystrophic, lytic, greater than 3mm thick, discolored and friable with crumbly malodorous subungual debris, with pain on palpation , TA , T4 , T5 , T9 , proximal clearing of nail 20 percent.?General Examination: ?GENERAL APPEARANCE:?Reveals a pleasant, alert, well-nourished, well- developed, well hydrated individual, who demonstrates proper attention to hygiene/body habitus, and is in no acute distress, Pt serves as own?historian for office visit today.?ORIENTED:?person, place, and time.?Neurological: ?SENSORY:?Neurological exam reveals intact sensorium, pain sensation normal, vibration sensation intact, pinprick sensation is normal in the lower extremities, Pt denies, anesthesia, burning, paresthesia, tingling, B/L.?TINEL'S COMPRESSION:?Negative tarsal tunnel, herberth pedis, and medial calcaneal nerves.?DEEP TENDON REFLEXES:?Achilles, 2/4, B/L.?Vascular: ?DP PULSES:?, 2/4 , B/L.?PT PULSES:?2/4, B/L.?CAPILLARY FILL TIME:?immediate, all digits, B/L.?SKIN TEMPERTURE GRADIENT OF THE LOWER EXTERMITIES:?warm to cool, proximal to distal, B/L.?HAIR GROWTH/TEXTURE/ELASTICITY/TURGOR:?normal, B/L.?PIGMENTATION:?normal, B/L.?EDEMA:?absent, B/L.?Dermatologic: ?SKIN FINDINGS:?Skin exam reveals normal texture, elasticity, and turgor. There are no masses. The interspaces are clear.?Orthopedic: ?MUSCLE STRENGTH:?5/5 all groups in a symmetrical fashion , B/L.?GAIT ABNORMALITY:? antalgic.?FOOT MORPHOLOGY:? Pes Planus structure, Decreased Ankle joint dorsiflexion ROM, knee extended.?Heel Pain: ?INSPECTION REVEALS:?Pain on Palpation to Plantar Fascia med. and central bands, intrinsic musc., infra-calcaneal bursa, and med calc tubercle, B/L, No pain: posterior/superior heel, achilles bursa/tendon, sinus tarsi, peroneals, or with lateral heel compression; no limited STJ ROM, calor, or ecchymosis b/l.? Assessment: * Assessment: 1.?Plantar fasciitis, bilate ral - M72.2 (Primary), Acute problem, Stable (1=3)?2.?Fungal infection of nail - B35.1?3.?Pain of toe of right foot - M79.674?4.?Pain of toe of left foot - M79.675?5.?Pain in right foot - M79.671?6.?Bursitis of right foot - M77.51?7.?Pain in left foot - M79.672?8.?Bursitis of left foot - M77.52? Plan: * Treatment: 2.?Fungal infection of nail? Start Ciclopirox Gel, 0.77 %, 1 application, Externally, Twice a day, 365 days, 60, Refills 6.?? * Procedures:?Debride Nails 1-5:?Procedure:?Nail debridement performed extensively to reduce/remove overall nail length and girth, subungual debris, and necrotic tissue, by manual and electrical means with use of a nail nipper and/or dremel, to more viable healthy nail plate or bed tissue 1-5. Silver nitrate used for any petechial bleeding as necessary (34307). Patient chooses , to cont , topical antifungal.? * Procedure Codes:?15389 ANAMARIA COWART, 1-5, Modifiers: XS * Preventive Medicine:? ??Counseling:?Discussion:?-13: Office or other outpatient visit for the evaluation and management of an established patient, which required a medically appropriate history and/or examination and LOW level of DECISION MAKING for: 1 STABLE ACUTE UNCOMPLICATED PROBLEM, 2 OR MORE MINOR PROBLEMS, OR 1 STABLE CHRONIC PROBLEM, THAT POSE(S) A LOW RISK FOR MORBIDITY/MORTALITY. The visit on the day of the encounter encompassed interpreting the data and educating the patient as to the nature of their condition, treatment options available according to their individual PMH, meds, allergies, and overall health/living conditions, as well as any potential risks or complications that may occur from a failure to adhere to, and participate in, the recommended course of therapy. The discussion included a complete verbal, and/or written explanation of the examination results, any x-rays taken, the proposed diagnosis, and outline of the treatment plan. A schedule for future care needs was also explained. The patient verbalized an understanding of the instructions at this time and agreed to be an active participant in their treatment. If the patient should think of any questions or concerns after the visit, I have encouraged the patient to call the office.?Heel pain:?FASCIITIS: I explained to the patient the possible etiologies of Plantar Fasciitis including foot type/shoegear/activity level/exercise routine and the risks/benefits of all the different treatment options for heel pain including: No treatment at all, Rest, Ice, NSAIDs(only if well tolerated after meals), New/supportive Shoegear, Strappings and Tapings, Stretching exercises, Deep Tissue Massage, Heel cups/cushions, Arch support/shoe inserts, Custom orthoses, Topical analgesics including Aspercream/Voltaren gel, Night splint AFO for am stiffness, Cortisone injection therapy, Cast boot with crutches/cane/or walker for assisted ambulation, Physical Therapy, EPAT/ESWT, Interfil injection therapy, as well as surgical Parachute/Endoscopic Fasciitomy surgical procedures if needed. Recommendations were made to limit barefoot walking, eliminate wearing nonsupportive shoegear (i.e. flip-flops or sandals, or a shoe with an easily bendable, foldable, or twistable sole) and wear shoegear with a good solid sole, a supportive arch, and plenty of room for an insert/orthotic if necessary. If wearing sandals was required by the patient, we recommended orthopedic sandals such as Orthoheel or Birkenstock even while in the home. If the patient wore heels in the past, we recommended they continue, but eliminate the use of flats. The advantages and disadvantages of each option were discussed and the patients questions re: types of shoegear, custom vs prefabricated inserts, activity level, PO vs Topical medications (and their respective potential complications/drug interactions/side effects), and consistency in home treatment regimens for optimal success were answered to their satisfaction. Literature detailing plantar fasciitis and the various treatment options were dispensed and reviewed , Stretching exercises for the patients injury/diagnosis were discussed and demonstrated, Handouts were also given.? * Follow Up:?prn * Images: * Sign off status: Completed true * Provider:?Marguerite Linder DPM Date:?2022 Generated for Vidya Mccarty/Althea on:?04/11/2024 06:37 PM EST History and Physical Notes * HPI (History of Present Illness) Category Sub-Category Detail Notes Category Not es Heel pain Nature: tenderness, sharp pain, stif fness Location: Proximal plantar asp ect of Heel , B/L Aggravated: standing, walking, w alking first thing in the morning/after rest Course: , intermittent Treatments: rest Painful Nails Aggravated by: shoegear causing difficul ty standing/walking Course: improved at 20% Duration: 1 year or more Location: Great toe , 5th toe , Both feet Nature: aching, tender, disc olored, thick Treatments: Vicks vapo rub , Nellie lopirox topical gel Examination Category Sub-Category Detail Notes Category Not es Heel Pain INSPECTION REVEALS: Pain on Palp ation to Plantar Fascia med. and central bands, intrinsic musc., infra-calcaneal bursa, and med calc tubercle, B/L, No pain: posterior/superior heel, achilles bursa/tendon, sinus tarsi, peroneals, or with lateral heel compression; no limited STJ ROM, calor, or ecchymosis b/l Neurological SENSORY: Neurological exa m reveals intact sensorium, pain sensation normal, vibration sensation intact, pinprick sensation is normal in the lower extremities, Pt denies, anesthesia, burning, paresthesia, tingling, B/L TINEL'S COMPRESSION: Negative tarsal josé ulis sher, herberth pedis, and medial calcaneal nerves DEEP TENDON REFLEXES: Achilles, 2/4, B/L Dermatologic SKIN FINDINGS: Skin exam reveal s normal texture, elasticity, and turgor. There are no masses. The interspaces are clear Orthopedic GAIT ABNORMALITY: antalgic FOOT MORPHOLOGY: Pes Planus structure , Decreased Ankle joint dorsiflexion ROM, knee extended MUSCLE STRENGTH: 5/5 all groups in a symmetrical fashion , B/L General Examination GENERAL APPEARANCE: Reveals a pleasant, alert, well- nourished, well-developed, well hydrated individual, who demonstrates proper attention to hygiene/body habitus, and is in no acute distress, Pt serves as own historian for office visit today ORIENTED: person, place, and t fabiana Vascular DP PULSES (B): , 2/4 , B/L PT PULSES (B): 2/4, B/L CAPILLARY FILL TIME: immediate, all digi ts, B/L TEMPERTURE GRADIENT (C): warm to cool, p roximal to distal, B/L TROPHIC CONDITION-TEXTURE/ELASTICITY/TURGOR/HAIR GROWTH (B): normal, B/L EDEMA (C): absent, B/L PIGMENTATION: normal, B/L Nails NAILS are: Elongated, overg rown, dystrophic, lytic, greater than 3mm thick, discolored and friable with crumbly malodorous subungual debris, with pain on palpation , TA , T4 , T5 , T9 , proximal clearing of nail 20 percent
--- OUTSIDE RECORDS SUMMARY | 2024-04-11 18:38 | XMS_ITS | Patient Health Record ---
Author Organization [facility] [place] [place] Address [address] [facility] [place] [address] Care Team Providers Care Process Improvement Engineer Name Role Phone Jose Elias Ren MDh Primary Care Provider Rosangela Linder Marguerite Unavailable [phone] Allergies No Known Allergies Reason For Referral No Information Medications Medication SIG (Take, Route, Frequency, Duration) Notes Start Date End Date Status Ciclopirox 0.77 % 1 application Externally Twice a day for 365 days Active Night Splint AFO - L1930 1 wear at rest for 30 days Active Night Splint AFO - L1930 as directed 01/08/2022 Active Eucerin Plus 2.5-10 % as directed Externally 04/30 Active Simvastatin 40 MG 1 tablet in the even ing Orally Once a day for 30 day(s) Active Vitamin B12 1000 MCG 1 tablet Orally Onc e a day for 30 day(s) Active Ibuprofen 400 MG 1 tablet with food o r milk as needed Orally Three times a day 09/27/2021 Not-Taking Vitamin D3 50 MCG (2000 UT) 1 capsule Orally Once a day for 30 day(s) Active Physical Therapy . . . 2-3x/week for 3- 4 weeks 09/27/2021 Active Lisinopril 20 MG 1 tablet Orally Once a day for 30 day(s) Active Levothyroxine Sodium 88 MCG 1 tablet in the morning on an empty stomach Orally Once a day for 30 day(s) Active Immunizations Vaccine Route Administration Date Status Comme nts COVID-19 Moderna Vaccine Unknown 01/02/2021 Administered 2nd 06/06/20 1st 05/09/20 Social History Tobacco Use: Social History Observation [...] Are you an other tobacco user? No Plan Of Treatment Pending Test Test Name Order Date [id number] Plate 03/05/202239600,[id number] TENDON SHEATH/LIGAMENT 1 05/06/202183859,[id number] TENDON SHEATH/LIGAMENT 0 11/22/202164470,[id number] TENDON SHEATH/LIGAMENT 1 Insurance Providers Payer Name Payer Address Payer Phone Subscriber Number Group Number Insured Name Patient Relationship to Insured Coverage Start Date Coverage End Date [facility] Health Plan [address] [place] [address] [id number] Mar Hare i Self - patient is the insured Medical (General) History Medical History History ICD Code Osteoporosis Hyperlipidemia Hypothyroidism Hypertension Allergic rhinitis Anemia Hypercholesterolemia Vitamin D deficiency Measles Surgical History Surgery Date(Month/Year) excision of mass
== END 2024-04-11 15:02 | disposition home or self-care (01) ==
PROVIDERS: PCP Internal Medicine; Visit Provider Internal Medicine
DX: F41.9 Anxiety disorder, unspecified (principal); K90.0 Celiac disease; I10 Essential (primary) hypertension; E78.00 Pure hypercholesterolemia, unspecified; E03.9 Hypothyroidism, unspecified; R73.01 Impaired fasting glucose; D51.0 Vitamin B12 deficiency anemia due to intrinsic factor deficiency; E55.9 Vitamin D deficiency, unspecified; M81.0 Age-related osteoporosis without current pathological fracture; J30.9 Allergic rhinitis, unspecified

== ENCOUNTER → 2024-04-11 14:07 | Outpatient (BNVA) | payer OTHER, SELFPAY | PROVIDERS: PCP Internal Medicine; Visit Provider Internal Medicine | DX: F41.9 Anxiety disorder, unspecified (principal); I10 Essential (primary) hypertension; E78.00 Pure hypercholesterolemia, unspecified; E03.9 Hypothyroidism, unspecified; K90.0 Celiac disease; R73.01 Impaired fasting glucose; D51.0 Vitamin B12 deficiency anemia due to intrinsic factor deficiency; E55.9 Vitamin D deficiency, unspecified; M81.0 Age-related osteoporosis without current pathological fracture; J30.9 Allergic rhinitis, unspecified | CPT/HCPCS: 96127; 99212 ==

== ENCOUNTER 2024-05-13 12:41 | Outpatient (REF) | payer OTHER, SELFPAY ==
--- NOTE | ~2024-05-13 | MM_ITS ---
EXAMINATION: MM SCREENING DIGITAL BREAST TOMOSYNTHESIS, BILATERAL CLINICAL INFORMATION: Screening. Asymptomatic. COMPARISON: Mammography: Comparison is made with available priors TECHNIQUE: Digital breast mammography with tomosynthesis is performed in both the craniocaudal and mediolateral oblique views along with computer-aided detection (CAD). FINDINGS: There are scattered areas of fibroglandular density (ACR BI-RADS breast composition Category b). There are no significant masses, abnormal calcifications, or other abnormalities. MM/MM tomosynthesis screening BI IMPRESSION: No mammographic evidence of malignancy. ASSESSMENT: BI-RADS BI-RADS 1 - Negative RECOMMENDATION: Routine annual mammography screening. 1 year F/U This examination should not preclude the clinical evaluation of a suspicious palpable abnormality. This patient's information was entered into a reminder system with a target due date for their next mammogram. Electronically signed by: Madeline Morel DO 05/17/2024 10:37 AM RIVER
--- OUTSIDE RECORDS SUMMARY | 2024-05-13 14:47 | XMS_ITS ---
Author Organization [facility] [place] [place] Address [address] [facility] [place] [address] Care Team Providers Care Marine Mammal Trainer Name Role Phone Ovidio Ren MDneth Primary Care Provider Rosangela LinderKristine Unavailable [phone] Allergies No Known Allergies REASON FOR VISIT [...] 12/15/2022 Encounters Encounter Location Date Provider Diagnosis [facility] [address] [place] [address] 12/15/2022 Marguerite Black Fungal infection of nail [...] Date Notes Ciclopirox 0.77 % 1 application Retail Attendant ally Twice a day for 365 days [...] used for any petechial bleeding as necessary (59659). Patient chooses , to cont , topical antifungal Progress Notes * Hussein DESAIB:[birth year] (72 yo F)Acc No.[id number]:12/15/2022 Progress Note Patient:?Mar Desai Provider:?Marguerite Linder DPM :1950???Age:72 Y???Sex:Female D ate:12/15/2022 Address:[address] [place], [place] [id number] Pcp:Anurag Ren MD Subjective: * Chief Complaints: [...] used for any petechial bleeding as necessary (67142). Patient chooses , to cont , topical antifungal.? * Procedure Codes:?06477 ANAMARIA COWART, 1-5, Modifiers: XS * Preventive [...] Interfil injection therapy, as well as surgical Emigrant/Endoscopic Fasciitomy surgical procedures if needed. Recommendations were [...] Linder DPM Date:?2022 Generated for Vidya Mccarty/Althea on:?05/13/2024 02:47 PM EST History and Physical Notes * [...] tingling, B/L TINEL'S COMPRESSION: Negative tarsal josé luis sher, herberth pedis, and medial calcaneal nerves [...]
--- OUTSIDE RECORDS SUMMARY | 2024-05-13 14:47 | XMS_ITS | Patient Health Record ---
Author Organization [facility] [address] [address] [place] Address [address] [place] [address] Care Team Providers Care Flat Machine Cutter Name Role Phone Jose Elias Ren MDh Primary Care Provider Rosangela Linder Marguerite Unavailable [phone] Allergies No Known Allergies Reason For Referral [...] Treatment Pending Test Test Name Order Date [id number] Plate 03/05/202251265,[id number] TENDON SHEATH/LIGAMENT 1 05/06/202123671,[id number] TENDON SHEATH/LIGAMENT 0 11/22/202114038,[id number] TENDON SHEATH/LIGAMENT 1 Insurance Providers Payer Name Payer Address Payer Phone Subscriber Number Group Number Insured Name Patient Relationship to Insured Coverage Start Date Coverage End Date [facility] Health Plan [address] [place] [address] [id number] Mar Hare i Self - patient is the insured Medical (General) History Medical History History ICD Code Osteoporosis Hyperlipidemia Hypothyroidism Hypertension Allergic rhinitis Anemia Hypercholesterolemia Vitamin D deficiency Measles Surgical History Surgery Date(Month/Year) excision of mass
== END 2024-05-13 12:42 | disposition home or self-care (01) ==
LOC: HO.MAMMO 12:41
PROVIDERS: PCP Internal Medicine; Visit Provider Internal Medicine
DX: Z12.31 Encounter for screening mammogram for malignant neoplasm of breast (principal)
CPT/HCPCS: 77063; 77067

== ENCOUNTER → 2024-05-13 12:45 | Outpatient (BNV) | payer OTHER, SELFPAY | PROVIDERS: PCP Internal Medicine; Visit Provider Internal Medicine | DX: Z12.31 Encounter for screening mammogram for malignant neoplasm of breast (principal) | CPT/HCPCS: 77063; 77067 ==

== ENCOUNTER 2024-08-03 08:04 | Outpatient (REF) | payer OTHER, SELFPAY ==
--- OUTSIDE RECORDS SUMMARY | 2024-08-03 09:27 | XMS_ITS | Patient Health Record ---
Author Organization [facility] [place] Address [address] [place] [address] Care Team Providers Care Bessemer Regulator Name Role Phone Jose Elias Ren MDh Primary Care Provider Rosangela Linder Marguerite Unavailable [phone] Allergies No Known Allergies Reason For Referral [...] Treatment Pending Test Test Name Order Date [id number] Plate 03/05/202268491,[id number] TENDON SHEATH/LIGAMENT 1 05/06/202162560,[id number] TENDON SHEATH/LIGAMENT 0 11/22/[id number],[id number] TENDON SHEATH/LIGAMENT 1 Insurance Providers Payer Name Payer Address Payer Phone Subscriber Number Group Number Insured Name Patient Relationship to Insured Coverage Start Date Coverage End Date [facility] Plan [address] [place] [address] [id number] Mar Hare i Self - patient is the insured Medical (General) History Medical History History ICD Code Osteoporosis Hyperlipidemia Hypothyroidism Hypertension Allergic rhinitis Anemia Hypercholesterolemia Vitamin D deficiency Measles Surgical History Surgery Date(Month/Year) excision of mass
[2024-08-03 10:10] LABS: MANUAL DIFF FLAG NO
[2024-08-03 10:12] LABS: Basophils Absolute Auto 0.1 X10*3/uL (0.0-0.2); Basophils Percent Auto 0.8 % (0-2); Eosinophils Absolute Auto 0.2 X10*3/uL (0.0-0.4); Eosinophils Percent Auto 3.6 % (0-4); Hematocrit 39.8 % (37.0-47.0); Hemoglobin 13.8 g/dl (12.0-16.0); Imm Gran Abs Auto 0.02 X10*3/uL (0.00-0.03); Imm Gran Pct Auto 0.3 % (0.0-0.4); Lymphocytes Absolute Auto 1.7 X10*3/uL (1.2-4.9); Lymphocytes Percent Auto 28.5 % (20-40); Mean Corpuscular HGB Conc 34.7 g/dl (31.0-35.0); Mean Corpuscular Hemoglobin 32.8 pg (27.0-33.0); Mean Corpuscular Volume 94.5 fL (80.0-98.0); Mean Platelet Volume 9.8 fL (9.4-12.3); Monocytes Absolute Auto 0.4 X10*3/uL (0.1-1.2); Monocytes Percent Auto 6.6 % (2-11); Neutrophils Absolute Auto 3.6 x10*3/uL (2.0-8.3); Neutrophils Percent Auto 60.2 % (45-73); Platelet Count 226 X10*3/uL (160-400); Red Blood Count 4.21 X10*6/uL (4.20-5.50); White Blood Count 5.9 X10*3/uL (4.8-10.8)
[2024-08-03 12:06] LABS: Alanine Aminotransferase 42 U/L (0-31); Albumin Level 4.4 g/dL (3.5-5.0); Alkaline Phosphatase 62 U/L (39-117); Anion Gap 12 (12-20); Aspartate Amino Transferase 33 U/L (5-31); Bilirubin Total 0.5 mg/dL (0.0-1.0); Blood Urea Nitrogen 11 mg/dL (9-16); Calcium 9.1 mg/dL (8.4-10.2); Carbon Dioxide 28 mmol/L (22-29); Chloride 105 mmol/L (96-108); Cholesterol 148 mg/dL (<200); Estimated Glomerular Filt Rate > 60; Glucose Fasting 112 mg/dL (60-99); HDL Cholesterol 55 mg/dL (>40); LDL Cholesterol Calculated 77 mg/dL (<100); Potassium 4.2 mmol/L (3.3-5.1); Sodium 141 mmol/L (135-145); Triglycerides 83 mg/dL (<150)
== END 2024-08-03 08:05 | disposition home or self-care (01) ==
LOC: HO.HMGCLDS 08:04
PROVIDERS: PCP Internal Medicine; Visit Provider Internal Medicine
DX: D64.9 Anemia, unspecified (principal); E78.00 Pure hypercholesterolemia, unspecified
CPT/HCPCS: 36415; 80053; 80061; 85025

== ENCOUNTER 2024-08-10 12:20 | Outpatient (AMB) | payer OTHER, SELFPAY ==
[2024-08-10 12:25] VITALS: BP 130/72; PULSE 72; O2SAT 96; BMI 25.1
--- NOTE | 2024-08-10 12:25 | MHC.PC.OV ---
Vital Signs 08/10/24 12:25 Height 5 ft 2 in Weight 137 lb 6 oz BMI 25.1 BP 130/72 Blood Pressure Location Lt brachial Position Sitting Pulse 72 Pulse Source Pulse Oximeter Pulse Oximetry (%) 96 Oxygen Delivery Method Room Air Intake Visit Reasons: 4 Months f/u Radiation Control Technician Required: No Accompanied by: Self / Same As Patient Allergies No Known Allergies Allergy (Verified 08/10/24 12:48) Medication List - Last Reconciled 08/10/24 by Anurag Ren MD bupropion HCl XL 300 mg PO QAM 90 days cholecalciferol (vitamin D3) 50 mcg PO DAILY 90 days diphenhydramine HCl (Benadryl Allergy) 1 to 2 tablets up to 3 to 4 times a day as needed folic acid 1 mg PO DAILY haloperidol 1 mg PO BID PRN levothyroxine 75 mcg PO DAILY 90 days lisinopril 20 mg PO DAILY 90 days omeprazole 20 mg PO DAILY sertraline 50 mg PO DAILY simvastatin 40 mg PO BEDTIME 90 days Tobacco use date assessed: 08/10/24 Fall risk assessment: No Falls in past year Last assessed Fall Risk: 08/10/24 Dental Screening Dental Screen Date: 08/10/24 Did you have a dental visit in the last 12 months?: No Did you have a dental problem in the last 6 months where you did not have access to dental care?: No Was dental information given to patient?: No HPI 4 Months f/u HPI Details Patient comes in today for her follow-up visit States that she feels okay Her family states that she continues to have on and off episodes of sudden onset of generalized stiffness and trouble walking, with increased shaking all over and increased weakness but states that these episodes seem to have decreased in intensity and have been occurring less often than before Patient has been seeing Dr. Enriquez for neurology follow up for a while now and was apparently started on Sertraline 50 mg QD a few weeks ago; Clonazepam was also reportedly discontinued She denies any headaches or dizziness Denies any chest pains, no shortness of breath No nausea/vomiting, no abdominal pain No change in bowel habits noted She had her follow-up labs done last week - to discuss the results [facility] Medical History Anxiety Celiac disease Vitamin D deficiency Osteoporosis Allergic rhinitis Pernicious anemia Acquired hypothyroidism Pure hypercholesterolemia Impaired fasting glucose Benign essential hypertension Surgical History History of excision of mass Family History Father No problems noted. Mother No problems noted. Social History Housing: House Alcohol intake: current Alcohol intake frequency: holidays/special occasions only Patient Tobacco Use Status: Current everyday Tobacco user Cigarettes Per Day: 6 e-Cigarette/Vaping Use: Never Used Second Hand Smoke Exposure: Yes service: No Current occupational status: retired Cognitive needs: No Hearing needs: No Vision needs: No Questionnaire PHQ-9 Over the last 2 weeks, how often have you been bothered by any of the following problems? 1. Little interest or pleasure in doing things: not at all 2. Feeling down, depressed, or hopeless: not at all 3. Trouble falling or staying asleep, or sleeping too much: not at all 4. Feeling tired or having little energy: not at all 5. Poor appetite or overeating: not at all 6. Feeling bad about yourself - or that you are a failure or have let yourself or your family down: not at all 7. Trouble concentrating on things, such as reading the newspaper or watching television: not at all 8. Moving or speaking so slowly that other people could have noticed. Or the opposite - being so fidgety or restless that you have been moving around a lot more than usual: not at all 9. Thoughts that you would be better off or of hurting yourself in some way: not at all Total score: 0 Depression Screening Interpretation: Negative Depression Screening Done: Yes 40817 - PHQ-9 Billing: Yes Source: Developed by Drs. Quintin Amato, Alexandra Gusman, Wayne Eng and colleagues, with an educational elisa from [employer]. Thrive Questionnaire Date Thrive assessed: 08/10/24 I am a: Patient What is your living situation today?: I have a steady place to live Within the past 12 months, did the food you bought not last and you didn't have the money to get more?: Never true Within the past 12 months, did you worry whether your food would run out before you got money to buy more?: Never true Do you have trouble paying for medicines?: No Do you have trouble getting transportation to medical appointments?: No Do you have trouble paying your heating and electricity bill?: No Do you have trouble taking care of your child, family member or friend?: No Do you have trouble with day-to-day activities such as bathing, preparing meals, shopping, managing finances, etc.?: No Are you currently unemployed and looking for a job?: No Are you interested in more education?: No Please select the resources that you would like help with: None Currently or been in a relationship where the following occur: No concerns reported THRIVE Score: 0 AUDIT C Alcohol Use Questionnaire (AUDIT-C) 1. How often do you have a drink containing alcohol?: Monthly or less 2. How many drinks containing alcohol do you have on a typical day when you are drinking?: 1 or 2 3. How often do you have six or more drinks on one occasion?: Never Total Score: 1 Score Reviewed/Action Taken: Yes JOHNIE-7 AMB Questionnaire JOHNIE-7 Date JOHNIE - 7 assessed: 08/10/24 Feeling nervous, anxious, or on edge: 0 = Not at all Not being able to stop or control worryin = Not at all Worrying too much about different things: 0 = Not at all Trouble relaxin = Not at all Being so restless that it is hard to sit still: 0 = Not at all Becoming easily annoyed or irritable: 0 = Not at all Feeling afraid as if something awful might happen: 0 = Not at all Total JOHNIE-7 score (0-4 normal; 5-9 mild; 10-14 moderate; 15-21 severe): 0 Source: Developed by Drs. Quintin Amato, Alexandra Gusman, Wayne Eng and colleagues, with an educational elisa from [employer]. Review of Systems Const Denies chills, Denies difficulty sleeping (Rx helping), Reports fatigue, Denies fever(s) and Denies headache(s) ENT Denies dysphagia, Denies dizziness, Denies otalgia, Denies headache(s), Denies neck pain, Denies odynophagia and Denies sore throat Card Denies chest pain, Denies palpitations and Denies dyspnea Resp Denies chest congestion, Denies cough and Denies dyspnea GI Denies abdominal pain, Denies constipation, Denies dysphagia, Denies heartburn, Denies diarrhea, Denies nausea, Denies odynophagia and Denies vomiting Denies difficulty voiding, Denies nocturia, Denies dysuria and Denies urinary urgency Musc Details: (+) on and off episodes of shaking all over, including in her legs, making it difficult for her to walk - notes that these have been occurring less often and less intensely Denies back pain and Denies neck pain Skin/Breast Denies rash Neuro Reports as per HPI, Reports behavioral changes, Denies dizziness, Denies headache(s) and Reports memory loss Psych Reports as per HPI, Reports anxiety, Reports behavioral changes and Reports memory loss Endo Reports fatigue and Denies palpitations Physical exam (Primary Care) Vital Signs: Last Vital Signs Pulse 72 08/10/24 12:25 BP 130/72 08/10/24 12:25 Pulse Ox 96 08/10/24 12:25 Oxygen Delivery Method Room Air 08/10/24 12:25 BMI result Body Mass Index 25.1 Tobacco/Smoking Status: Tobacco use Status Tobacco use date assessed 08/10/24 08/10/24 12:29 Patient Tobacco Use Status Current everyday Tobacco 08/10/24 12:29 e-Cigarette/Vaping Use Never Used 08/10/24 12:29 PHQ-9: PHQ-9 Score PHQ-9: Total score 0 08/10/24 12:29 Depression Screening Interpretation: Negative Thrive Assessment: Date of Thrive Assessment Date Thrive assessed 08/10/24 08/10/24 12:29 Currently or been in a relationship where the following occur: No concerns reported Const General: no acute distress, alert and anxious Orientation/consciousness: patient oriented x3 HENMT Ears: TM's normal bilaterally and EAC's normal Throat: Yes posterior oropharynx normal and Yes tonsils normal (no TP congestion) Neck Neck: Yes supple and No lymphadenopathy Thyroid: Thyroid normal Resp Auscultation: clear to auscultation bilaterally, no rales and no wheezes Cardio Rate: regular rate Rhythm: regular rhythm Heart sounds: no murmurs GI Palpation (GI): Soft to palpation and nontender Auscultation: normal bowel sounds General: Yes no CVA tenderness Back/Spine/Pelvis Back: no CVA tenderness Thoracic/Lumbar Spine: No lumbar spinal tenderness Skin Rashes: no rashes Neuro Other: on and off shaking / tremors of hands, right leg, whole body General: patient oriented x3 Gait exam (Neuro): Staggering gait present (due to tremors/shaking) Extrem General: Yes no clubbing, cyanosis or edema Results Reviewed Results Reviewed: Laboratory Tests 08/03/24 08:13 WBC 5.9 Hgb 13.8 Hct 39.8 Plt Count 226 D Sodium 141 Potassium 4.2 Creatinine 0.83 Estimated GFR > 60 Fasting Glucose 112 H Calcium 9.1 AST 33 H ALT 42 H Triglycerides 83 Cholesterol 148 LDL Cholesterol, Calc 77 HDL Cholesterol 55 Coding Level of Care Code Est Pt Level 4 (64945) Complex EM visit Add On G2211 Diagnoses Pure hypercholesterolemia E78.00 Benign essential hypertension I10 Acquired hypothyroidism E03.9 Impaired fasting glucose R73.01 Celiac disease K90.0 Pernicious anemia D51.0 Vitamin D deficiency E55.9 Age-related osteoporosis without current pathological fracture M81.0 Osteoporosis type: age-related Presence of current pathological fracture: without current pathological fracture Allergic rhinitis, unspecified seasonality, unspecified trigger J30.9 Allergic rhinitis trigger: unspecified Allergic rhinitis seasonality: unspecified Anxiety F41.9 Additional Codes PHQ-9 - 12614 - PHQ-9 Billing: Yes ([id number]) Assessment & Plan Assessment & Plan (1) Pure hypercholesterolemia: Code(s): E78.00 - Pure hypercholesterolemia, unspecified Category: Medical Plan: Results of her labs done last week reviewed and discussed with patient and her Reinforced low cholesterol diet Continue Simvastatin 40 mg QD Will recheck her labs and fasting lipids in 4 months for follow up (2) Benign essential hypertension: Code(s): I10 - Essential (primary) hypertension Category: Medical Plan: Reinforced low sodium diet - goal is systolic BP of at least 130 to 140 mm or less Continue Lisinopril 20 mg QD (3) Acquired hypothyroidism: Comment: (+) Shiv's Code(s): E03.9 - Hypothyroidism, unspecified Category: Medical Plan: For unclear reasons, her TFTs were not done when patient went for her labs last week Continue Levothyroxine 75 mcg QD Will recheck her TFTs in 4 months for follow up (4) Impaired fasting glucose: Code(s): R73.01 - Impaired fasting glucose Category: Medical Plan: Her HgbA1c was normal at 5.5%, 5.2% and 5.3% when previously checked FBS was slightly elevated at 112 mg/dl on her labs done last week Reinforced low calorie/low carb diet; exercise as tolerated (5) Celiac disease: Code(s): K90.0 - Celiac disease Category: Medical Plan: Her celiac disease testing done last year came back positive, as evidence by an elevated tissue transglutaminase IgA level of 30.4 U/ml Patient states that her GI symptoms and bowel movements are all back to normal as soon as she started herself on a gluten-free diet, and she is advised to continue to stay on this diet (6) Pernicious anemia: Code(s): D51.0 - Vitamin B12 deficiency anemia due to intrinsic factor deficiency Category: Medical Plan: Her B12 level was normal when last checked a few months ago Continue Vitamin B12 tablets 1000 mcg QD (7) Vitamin D deficiency: Code(s): E55.9 - Vitamin D deficiency, unspecified Category: Medical Plan: Continue Vitamin D3 2000 units QD (8) Osteoporosis: Code(s): M81.0 - Age-related osteoporosis without current pathological fracture Category: Medical Qualifiers: Osteoporosis type: age-related Presence of current pathological fracture: without current pathological fracture Qualified Code(s): M81.0 - Age-related osteoporosis without current pathological fracture Plan: Repeat BMD done on 03/22/2021 showed a slight decreased from previous BMD in the lumbar spine; BMD in the femur remains unchanged from previous Patient is again encouraged on regular exercise and physical activity and continue daily Calcium and Vitamin D supplements Fall precautions reinforced Will continue to monitor her BMD every 2 to 3 years - she will be due for repeat BMD at her next appointment later this fall (9) Allergic rhinitis: Code(s): J30.9 - Allergic rhinitis, unspecified Category: Medical Qualifiers: Allergic rhinitis trigger: unspecified Allergic rhinitis seasonality: unspecified Qualified Code(s): J30.9 - Allergic rhinitis, unspecified Plan: Continue Loratadine 10 mg QD PRN (10) Anxiety: Code(s): F41.9 - Anxiety disorder, unspecified Category: Medical Plan: All of patient's recent work ups over the past few months have been normal, and majority of her symptoms of recurrent stiffness and inability to move are likely due to (severe) anxiety Continue Wellbutrin XL 300 mg QD and continue her on Benadryl 25 mg 1 to 2 tablets up to 4 times a day as needed She was also started on Sertraline [address] Enriquez and this appears to be helping as patient states that her episodes have been occurring much less frequently and they are now less intense Her Clonazepam has been discontinued by Dr. Enriquez Follow up with Dr. Enriquez as scheduled Plan Follow-up in 4 months Orders: Orders Thyroid Stimulating Hormone 4 Months E03.9 - Hypothyroidism, unspecified Hemoglobin A1c 4 Months R73.01 - Impaired fasting glucose Complete Blood Count Auto Diff 4 Months D64.9 - Anemia, unspecified Free T4 (Free Thyroxine) 4 Months E03.9 - Hypothyroidism, unspecified Lipid Panel 4 Months E78.00 - Pure hypercholesterolemia, unspecified Comprehensive [place]. Panel Fast 4 Months E78.00 - Pure hypercholesterolemia, unspecified Vitamin D 25-OH Total 4 Months E55.9 - Vitamin D deficiency, unspecified Vitamin B12 and Folate 4 Months E53.8 - Deficiency of other specified B group vitamins
--- OUTSIDE RECORDS SUMMARY | 2024-08-10 13:02 | XMS_ITS | Clinical Summary ---
Author Organization [facility] it Address [address] [place] [address] Care Team Providers Care Photogeologist Name Role Phone Anurag Ren MD Primary Care Provider Social History Tobacco Use Types Packs/Day Years Used Date Smoking Tobacco: Never Assessed Comments Unknown Sex and Gender Information Value Date Recorded Sex Assigned at Not on file Legal Sex Female 7:40 AM EST Gender Identity Not on file Sexual Orientation Not on file Plan of Treatment Upcoming Encounters Date Type Department Care Team (Late st Contact Info) Description 09/06/2024 1:50 PM EDT Office Visit Gastroenterology - [address] [place] [id number] Basia Bro, SLD INCLUSION TEACHER [address] [place] [address] Health Maintenance Due Date Last Done Comments Breast Cancer Screening 1950 DTaP,Tdap,and Td Vaccines (1 - Tdap) 12/15/1970 Pneumococcal Vaccine: 50+ Ye ars (1 of 1 - PCV) 12/15/2001 Zoster Vaccines (1 of 2) 12/15/2001 COVID-19 Vaccine ( - 2023-2 5 season) 2023 Colorectal Cancer Screening: Colonoscopy 12/22/2023 Depression Screening 12/22/2023 Falls Risk Assessment 12/22/2023 Hepatitis C Screening 12/22/2023 Osteoporosis Screening (Bone Density Screening) 12/22/2023 Social Influencers of Health Screening 12/22/2023 Influenza Vaccine (Season Ended) 2024 RSV Immunization Adult Patie nts (1 - 1-dose 75+ series) 12/15/2026 HIB Vaccines Aged Out No longer eligi ble based on patient's age to complete this topic HPV Vaccines Aged Out No longer eligi ble based on patient's age to complete this topic Hepatitis A Vaccines Aged Out No long er eligible based on patient's age to complete this topic Hepatitis B Vaccines Aged Out No long er eligible based on patient's age to complete this topic IPV Vaccines Aged Out No longer eligi ble based on patient's age to complete this topic MMR Vaccines Aged Out No longer eligi ble based on patient's age to complete this topic Meningococcal ACWY Vaccine Aged Out N o longer eligible based on patient's age to complete this topic Meningococcal B Vaccine Aged Out No l onger eligible based on patient's age to complete this topic RSV Immunization Patients Un larisa 20 months Aged Out No longer eligible b ased on patient's age to complete this topic Varicella Vaccines Aged Out No longer eligible based on patient's age to complete this topic Insurance MEDICARE Care Teams Photogeologist Relationship Specialty Start Date End Date Anurag Ren MD [address] [place] [address] PCP - General Internal Medicine 08/10/24
== END 2024-08-10 13:02 | disposition home or self-care (01) ==
LOC: HO.HMCH 12:20
PROVIDERS: PCP Internal Medicine; Visit Provider Internal Medicine
DX: E78.00 Pure hypercholesterolemia, unspecified (principal); I10 Essential (primary) hypertension; E03.9 Hypothyroidism, unspecified; R73.01 Impaired fasting glucose; K90.0 Celiac disease; D51.0 Vitamin B12 deficiency anemia due to intrinsic factor deficiency; E55.9 Vitamin D deficiency, unspecified; M81.0 Age-related osteoporosis without current pathological fracture; J30.9 Allergic rhinitis, unspecified; F41.9 Anxiety disorder, unspecified

== ENCOUNTER → 2024-08-10 12:20 | Outpatient (BNVA) | payer OTHER, SELFPAY | PROVIDERS: PCP Internal Medicine; Visit Provider Internal Medicine | DX: I10 Essential (primary) hypertension (principal); E78.00 Pure hypercholesterolemia, unspecified; E03.9 Hypothyroidism, unspecified; R73.01 Impaired fasting glucose; K90.0 Celiac disease; D51.0 Vitamin B12 deficiency anemia due to intrinsic factor deficiency; E55.9 Vitamin D deficiency, unspecified; M81.0 Age-related osteoporosis without current pathological fracture; J30.9 Allergic rhinitis, unspecified; F41.9 Anxiety disorder, unspecified; Z79.899 Other long term (current) drug therapy | CPT/HCPCS: 96127; 99212 ==

== ENCOUNTER 2024-12-20 08:56 | Outpatient (REF) | payer OTHER, SELFPAY ==
--- OUTSIDE RECORDS SUMMARY | 2024-12-20 09:46 | XMS_ITS | Patient Health Record ---
Author Organization [facility] [place] [place] Address [address] [facility] [place] [address] Care Team Providers Care Snaker Name Role Phone Anurag Ren MD Primary Care Provider Marguerite Johnson Unavailable [phone] Allergies No Known Allergies Reason For Referral No Information Medications Medication SIG (Take, Route, Frequency, Duration) Notes Start Date End Date Status Ciclopirox 0.77 % 1 application Externally Twice a day; Duration: 365 days Active Night Splint AFO - L1930 1 wear at rest; Duration: 30 days Active Night Splint AFO - L1930 as directed 01/08/2022 Active Eucerin Plus 2.5-10 % as directed Externally 04/30 Active Simvastatin 40 MG 1 tablet in the even ing Orally Once a day; Duration: 30 day(s) Active Vitamin B12 1000 MCG 1 tablet Orally Onc e a day; Duration: 30 day(s) Active Ibuprofen 400 MG 1 tablet with food o r milk as needed Orally Three times a day 09/27/2021 Not-Taking Vitamin D3 50 MCG (2000 UT) 1 capsule Orally Once a day; Duration: 30 day(s) Active Physical Therapy . . . 2-3x/week; Duration: 3-4 weeks 09/27/2021 Active Lisinopril 20 MG 1 tablet Orally Once a day; Duration: 30 day(s) Active Levothyroxine Sodium 88 MCG 1 tablet in the morning on an empty stomach Orally Once a day; Duration: 30 day(s) Active Immunizations Vaccine Route Administration [...] Treatment Pending Test Test Name Order Date [id number] Plate 03/05/202225622,[id number] TENDON SHEATH/LIGAMENT 1 05/06/202190031,[id number] TENDON SHEATH/LIGAMENT 0 11/22/202180793,[id number] TENDON SHEATH/LIGAMENT 1 Insurance Providers Payer Name Payer Address Payer Phone Subscriber Number Group Number Insured Name Patient Relationship to Insured Coverage Start Date Coverage End Date [facility] Plan [address] [place] [address] [id number] Mar Hare i Self - patient is the insured Medical (General) History Medical History History ICD Code Osteoporosis Hyperlipidemia Hypothyroidism Hypertension Allergic rhinitis Anemia Hypercholesterolemia Vitamin D deficiency Measles Surgical History Surgery Date(Month/Year) excision of mass
--- OUTSIDE RECORDS SUMMARY | 2024-12-20 09:46 | XMS_ITS | Clinical Summary ---
Author Organization [facility] [address] [facility] Address [address] [place] [address] Phone Care Team Providers Care Tour Driver Name Role Phone Anurag Ren MD Primary Care Provider Allergies No known active allergies Medications buPROPion XL (WELLBUTRIN XL) 300 mg 24 hr tablet 5 Active Banophen 25 mg capsule TAKE 1-2 TABLETS UP TO 3-4 TIMES A DAY NEEDED FOR TONGUE SWELLING, MUSCLE LOCK, ANXIETY 4 Active clonazePAM (KlonoPIN) 1 mg tablet 4 Active folic acid (FOLVITE) 1 mg tablet 4 Active levothyroxine (SYNTHROID, LEVOTHROID) 75 mcg tablet 5 Active lisinopriL (PRINIVIL,ZESTR IL) 20 mg tablet 5 Active omeprazole (PriLOSEC) [address] capsule 5 Active sertraline (ZOLOFT) 50 mg tablet 5 Active simvastatin (ZOCOR) 40 mg tablet 5 Active polyethylene glycol (Golytely) 236-22.74-6.74 -5.86 gram solution Take 4L by mouth once for one dose. May substitue any PEG. Starting at 2PM the day before your procedure drink 1 8oz glasses at your own pace until you complete half of the gallon. Finish 2nd half of the gallon at 8PM. 4000 mL 5 Active bisacodyL (DULCOLAX) 5 mg EC tablet Take 2 tablets by mouth right before beginning bowel prep. See instructions provided by the office 2 tablet 09/04/202 5 Active Encounters Date Type Department Care Team Description 12/01/2024 12:02 PM EDT Anesthesia Event [facility] Endoscopy [address] [place] [address] Thai Key MD 12/01/2024 10:56 AM EDT - 12/01/2024 11:59 PM EDT Hospital Encounter [facility] Endoscopy [address] [place] [id number] Tereza Deleon MD Hayes, Brett L, CRNA Gomes, Sheldon B, MD Celiac disease; Adenomatous polyp of colon, unspecified part of colon; Gastroesophageal reflux disease, unspecified whether esophagitis present Discharge Disposition: Home or Self Care from Last 3 Months Surgical History Surgery Date Site/Laterality Comments ESOPHAGOGASTRODUODENOSCOPY COLONOSCOPY Medical History Medical History Date Comments Hyperlipidemia Hypertension Anxiety Depression GERD (gastroesophageal reflux disease) Family History Medical History Relation Name Comments Colon cancer Brother Relation Name Status Comments Brother Social History Tobacco Use Types Packs/Day Years Used Date Smoking Tobacco: Former Cigarettes Smokeless Tobacco: Former Tobacco Cessation:Counseling Given: Not Answered Interpersonal Safety Answer Date Record ed Physical Abuse Unrecognized value 12/01/2024 Verbal Abuse Unrecognized value 12/01/2024 Comments No Sex and Gender Information Value Date Recorded Sex Assigned at Female 12/01/2024 10:51 AM EDT Legal Sex Female 7:40 AM EST Gender Identity Female 12/01/2024 10:51 AM EDT Sexual Orientation Straight 12/01/2024 10 :51 AM EDT Obstetrics History Last Filed Vital Signs Vital Sign Reading Time Taken Comments Blood Pressure 130/67 12/01/2024 12:50 PM EDT Pulse 59 12/01/2024 12:50 PM EDT Temperature 36.4 C (97.5 F) 12/01/2024 12:30 PM EDT Respiratory Rate 20 12/01/2024 12:50 PM EDT Oxygen Saturation 99% 12/01/2024 12:50 PM EDT Inhaled Oxygen Concentration - - Weight 59 kg (130 lb) 12/01/2024 11:29 AM EDT Height 160 cm (5' 3 ) 12/01/2024 11:29 AM EDT Body Mass Index 23.03 12/01/2024 11:29 AM EDT Plan of Treatment Health Maintenance Due Date Last Done Comments Breast Cancer Screening 1950 DTaP,Tdap,and Td Vaccines (1 - Tdap) 12/15/1970 Zoster Vaccines (1 of 2) 12/15/2001 Hepatitis C Screening 12/22/2023 Medicare Annual Wellness Visit 12/22/2023 Osteoporosis Screening (Bone Density Screening) 12/22/2023 Social Influencers of Health Screening 12/22/2023 Depression Screening 03/16/2024 COVID-19 Vaccine ( - season) 2024 01/09/2023, 12/20/2021, 03/04/2021, Additional history exists Influenza Vaccine (#1) 2024 , 01/01/2023, 02/21/2021, Additional history exists Falls Risk Assessment 12/01/2025 12/01/2024 RSV Immunization Adult Patients (1 - 1-dose 75+ series) 12/15/2026 Colorectal Cancer Screening: Colonoscopy 12/02/2031 12/01/2024, 09/09/2024 Pneumococcal Vaccine: 50+ Years Completed 02/29/2020, 07/16/2018 HIB Vaccines Aged Out No longer eligi [...] to complete this topic RSV Immunization Patients Under 20 months Aged Out No longer eligible based on patient's age to complete this topic Varicella Vaccines Aged Out No longer eligible based on patient's age to complete this topic Procedures Procedure Name Priority Date/Time Associated Diagnosis Comments COLONOSCOPY Routine 12/01/2024 12:29 PM EDT Celiac disease Adenomatous polyp of colon, unspecified part of colon Gastroesophageal reflux disease, unspecified whether esophagitis present EGD Routine 12/01/2024 12:29 PM EDT Celiac disease Adenomatous polyp of colon, unspecified part of colon Gastroesophageal reflux disease, unspecified whether esophagitis present TISSUE EXAM Routine 12/01/2024 12:07 PM EDT Celiac disease Adenomatous polyp of colon, unspecified part of colon Gastroesophageal reflux disease, unspecified whether esophagitis present from Last 3 Months Results * COLONOSCOPY Anesthesia - [facility]; [facility] ENDOSCOPY (12/01/2024 12:29 PM EDT) Anatomical Region Laterality Modality Endoscopy 12/01/2024 12:1 2 PM EDT Impressions 12/01/2024 12:30 PM EDT - The examined portion of the ileum was normal. - One 2 mm polyp in the transverse colon, removed with a cold snare. Resected and retrieved. - The examination was otherwise normal on direct and retroflexion views. Recommendation: - Await pathology results. - Repeat colonoscopy in 7 years for surveillance. Narrative 12/01/2024 12:30 PM EDT [facility] GI Patient Name: Mike Desai Procedure Date: 12/01/2024 12:12 PM Date of : 1950 Age: 73 Gender: Female Note Status: Finalized Attending MD: Tereza Deleon MD, Procedure Date No Time: 12/01/2024 Procedure: Colonoscopy Indications: High risk colon cancer surveillance: Personal history of colonic polyps Providers: Tereza Deleon MD Referring MD: Anurag Ren MD Medicines: Propofol per Anesthesia Complications: No immediate complications. Estimated Blood Loss: Estimated blood loss: none. Procedure: Pre-Anesthesia Assessment: - ASA Grade Assessment: II - A patient with mild systemic disease. After I obtained informed consent, the scope was passed under direct vision. Throughout the procedure, the patient's blood pressure, pulse, and oxygen saturations were monitored continuously.The Colonoscope was introduced through the anus and advanced to the terminal ileum. The colonoscopy was performed without difficulty. The patient tolerated the procedure well. The quality of the bowel preparation was good. Findings: The perianal and digital rectal examinations were normal. The terminal ileum appeared normal. A 2 mm polyp was found in the transverse colon. The polyp was sessile. The polyp was removed with a cold snare. Resection and retrieval were complete. The exam was otherwise without abnormality on direct and retroflexion views. Procedure Code(s): --- Professional --- 47646, Colonoscopy, flexible; with removal of tumor(s), polyp(s), or other lesion(s) by snare technique Diagnosis Code(s): --- Professional --- Z86.010, Personal history of colonic polyps D12.3, Benign neoplasm of transverse colon (hepatic flexure or splenic flexure) CPT copyright 2020 [employer]. All rights reserved. The codes documented in this report are preliminary and upon property damage claims adjustor review may be revised to meet current compliance requirements. Tereza Deleon MD 12/01/2024 12:30:00 PM This report has been signed electronically.Tereza Deleon MD Number of Addenda: 0 Note Initiated On: 12/01/2024 12:12 PM Scope In: Scope Out: Endoscopy Department at [facility] - [address] [place] [phone] Procedure Note Tereza Deleon MD - 12/01/2024 [facility] GI Patient Name: Mike Desai Procedure Date: 12/01/2024 12:12 PM Date of : 1950 Age: 73 Gender: Female Note Status: Finalized Attending MD: Tereza Deleon MD, Procedure Date No Time: 12/01/2024 Procedure: Colonoscopy Indications: High risk colon cancer surveillance: Personalhistory of colonic polyps Providers: Tereza Deleon MD Referring MD: Anurag Ren MD Medicines: Propofol per Anesthesia Complications: No immediate complications. Estimated Blood Loss: Estimated blood loss: none. Procedure: Pre-Anesthesia Assessment: - ASA Grade Assessment: II - A patient with mild systemic disease. After I obtained informed consent, the scope was passed under direct vision. Throughout theprocedure, the patient's blood pressure, pulse, and oxygen saturations were monitored continuously.The Colonoscope was introduced through the anus and advanced to the terminal ileum. The colonoscopy was performed without difficulty. The patient tolerated the procedure well. The quality of the bowel preparation was good. Findings: The perianal and digital rectal examinations were normal. The terminal ileum appeared normal. A 2 mm polyp was found in the transverse colon. The polyp was sessile. The polyp was removed with acold snare. Resection and retrieval were complete. The exam was otherwise without abnormality ondirect and retroflexion views. Procedure Code(s): --- Professional --- 65254, Colonoscopy, flexible; with removal of tumor(s), polyp(s), or other lesion(s) by snare technique Diagnosis Code(s): --- Professional --- Z86.010, Personal history of colonic polyps D12.3, Benign neoplasm of transverse colon (hepatic flexure or splenic flexure) CPT copyright 2020 [employer]. All rights reserved. The codes documented in this report are preliminary and upon property damage claims adjustor reviewmay be revised to meet current compliance requirements. Tereza Deleon MD 12/01/2024 12:30:00 PM This report has been signed electronically.Tereza Deleon MD Number of Addenda: 0 Note Initiated On: 12/01/2024 12:12 PM Scope In: Scope Out: Endoscopy Department at [facility] - [address] [place] [phone] IMPRESSION: - The examined portion of the ileum was normal. - One 2 mm polyp in the transverse colon, removedwith a cold snare. Resected and retrieved. - The examination was otherwise normal on directand retroflexion views. Recommendation: - Await pathology results. - Repeat colonoscopy in 7 years for surveillance. Tereza Deleon MD GI~PROCEDURE ORDERABLES Final Result * EGD Anesthesia - [facility]; [facility] ENDOSCOPY (12/01/2024 12:29 PM EDT) Anatomical Region Laterality Modality Endoscopy 12/01/2024 12:0 0 PM EDT Impressions 12/01/2024 12:12 PM EDT - Medium-sized hiatal hernia. - Gastritis. Biopsied. - Normal examined duodenum. Biopsied. Recommendation: - Await pathology results. Narrative 12/01/2024 12:12 PM EDT [facility] GI Patient Name: Mike Desai Procedure Date: 12/01/2024 12:00 PM Date of : 1950 Age: 73 Gender: Female Note Status: Finalized Attending MD: Tereza Deleon MD, Procedure Date No Time: 12/01/2024 Procedure: Upper GI endoscopy Indications: Follow-up of celiac disease Providers: Tereza Deleon MD Referring MD: Anurag Ren MD Medicines: Propofol per Anesthesia Complications: No immediate complications. Estimated Blood Loss: Estimated blood loss: none. Procedure: Pre-Anesthesia Assessment: - ASA Grade Assessment: II - A patient with mild systemic disease. After obtaining informed consent, the endoscope was passed under direct vision. Throughout the procedure, the patient's blood pressure, pulse, and oxygen saturations were monitored continuously.The Endoscope was introduced through the mouth, and advanced to the second part of duodenum. The upper GI endoscopy was accomplished without difficulty. The patient tolerated the procedure well. Findings: A medium-sized hiatal hernia was present. The exam of the esophagus was otherwise normal. Localized mild inflammation characterized by erythema was found in the gastric antrum. Biopsies were taken with a cold forceps for histology. The examined duodenum was normal. Biopsies for histology were taken with a cold forceps for evaluation of celiac disease. Procedure Code(s): --- Professional --- 49262, Esophagogastroduodenoscopy, flexible, transoral; with biopsy, single or multiple Diagnosis Code(s): --- Professional --- K44.9, Diaphragmatic hernia without obstruction or gangrene K29.70, Gastritis, unspecified, without bleeding K90.0, Celiac disease CPT copyright 2020 [employer]. All rights reserved. The codes documented in this report are preliminary and upon property damage claims adjustor review may be revised to meet current compliance requirements. Tereza Deleon MD 12/01/2024 12:12:20 PM This report has been signed electronically.Tereza Deleon MD Number of Addenda: 0 Note Initiated On: 12/01/2024 12:00 PM Scope In: Scope Out: Endoscopy Department at [facility] - [address] [place] [phone] Procedure Note Tereza Deleon MD - 12/01/2024 [facility] GI Patient Name: Mike Desai Procedure Date: 12/01/2024 12:00 PM Date of : 1950 Age: 73 Gender: Female Note Status: Finalized Attending MD: Tereza Deleon MD, Procedure Date No Time: 12/01/2024 Procedure: Upper GI endoscopy Indications: Follow-up of celiac disease Providers: Tereza Deleon MD Referring MD: Anurag Ren MD Medicines: Propofol per Anesthesia Complications: No immediate complications. Estimated Blood Loss: Estimated blood loss: none. Procedure: Pre-Anesthesia Assessment: - ASA Grade Assessment: II - A patient with mild systemic disease. After obtaining informed consent, the endoscope was passed under direct vision. Throughout theprocedure, the patient's blood pressure, pulse, and oxygen saturations were monitored continuously.TheEndoscope was introduced through the mouth, and advanced tothe second part of duodenum. The upper GI endoscopy was accomplished without difficulty. The patienttolerated the procedure well. Findings: A medium-sized hiatal hernia was present. The exam of the esophagus was otherwise normal. Localized mild inflammation characterized byerythema was found in the gastric antrum. Biopsies weretaken with a cold forceps for histology. The examined duodenum was normal. Biopsies for histology were taken with a cold forceps for evaluation of celiac disease. Procedure Code(s): --- Professional --- 92325, Esophagogastroduodenoscopy, flexible, transoral; with biopsy, single or multiple Diagnosis Code(s): --- Professional --- K44.9, Diaphragmatic hernia without obstruction or gangrene K29.70, Gastritis, unspecified, without bleeding K90.0, Celiac disease CPT copyright 2020 [employer]. All rights reserved. The codes documented in this report are preliminary and upon property damage claims adjustor reviewmay be revised to meet current compliance requirements. Tereza Deleon MD 12/01/2024 12:12:20 PM This report has been signed electronically.Tereza Deleon MD Number of Addenda: 0 Note Initiated On: 12/01/2024 12:00 PM Scope In: Scope Out: Endoscopy Department at [facility] - [address] [place] [phone] IMPRESSION: - Medium-sized hiatal hernia. - Gastritis. Biopsied. - Normal examined duodenum. Biopsied. Recommendation: - Await pathology results. Tereza Deleon MD GI~PROCEDURE ORDERABLES Final Result * Tissue exam (12/01/2024 12:07 PM EDT) Final Diagnosis A. Duodenum, biopsy: - Small bowel mucosa without diagnostic histopathologic change. - Villous architecture is generally preserved and there is no increase in intraepithelial lymphocytes. B. Stomach, biopsy: - Gastric antral- and oxyntic- type mucosa with chronic inflammation and focal reactive changes. - No active gastritis and no intestinal metaplasia identified. - No Helicobacter pylori identified on hematoxylin and eosin stained sections. C. Polyp, transverse colon, polypectomy: - Tubular adenoma. 12/02/2024 10:[address] [facility] Gross Description A. Small Intestine, Duodenum, biopsy: Labeled duodenum biopsy . Received in formalin are four irregular jonas mucosal tissue fragments, ranging from less than 0.1 cm to 0.2 cm in greatest dimension, which are wrapped in paper and submitted in toto in one cassette, four pieces, multiple levels on one slide. B. Stomach, gastric biopsy: Labeled stomach gastric . Received in formalin are four irregular jonas mucosal tissue fragments, ranging from 0.1 cm to 0.6 cm in greatest dimension, which are wrapped in paper and submitted in toto in one cassette, four pieces, multiple levels on one slide. C. Large Intestine, Transverse Colon, polyp x1 via cold snare: Labeled trans colon polyp x 1 . Received in formalin is a 0.2 cm irregular jonas mucosal tissue fragment which is wrapped in paper and submitted in toto in one cassette, one piece, multiple levels on one slide. MASHA 12/02/2024 10:[address] [facility] Disclaimer Unless otherwise specified, all tissue is 10% NB formalin fixed and paraffin embedded. 12/02/2024 10:37 AM EDT [facility] Tissue Duodenal structure / Unknown 12/01/2024 12:07 PM EDT 12/01/2024 1:12 PM EDT Tissue specimen (specimen) Stomach structure / Unknown 12/01/2024 12:09 PM EDT 12/01/2024 1:12 PM EDT Tissue specimen (specimen) Transverse colon structure / Unknown 12/01/2024 12:23 PM EDT 12/01/2024 1:12 PM EDT us Tereza Deleon MD LAB PATHOLOGY ORDERABLES Final Result [facility] [address] [place] [address], from Last 3 Months Insurance MEDICARE [facility] Care Teams Tour Driver Relationship Specialty Start Date End Date Anurag Ren MD [address] [place] [phone] PCP - General Internal Medicine 11/17/24
[2024-12-20 10:16] LABS: MANUAL DIFF FLAG NO
[2024-12-20 10:29] LABS: Hematocrit 39.1 % (37.0-47.0); Hemoglobin 13.0 g/dl (12.0-16.0); Imm Gran Abs Auto 0.02 X10*3/uL (0.00-0.03); Imm Gran Pct Auto 0.3 % (0.0-0.4); Lymphocytes Absolute Auto 1.8 X10*3/uL (1.2-4.9); Mean Corpuscular HGB Conc 33.2 g/dl (31.0-35.0); Mean Corpuscular Hemoglobin 31.4 pg (27.0-33.0); Mean Corpuscular Volume 94.4 fL (80.0-98.0); NRBC Abs Auto 0.000 X10*3/uL (0.0-0.012); NRBC Pct Auto 0.0 /100WBC (0.0-0.2); Platelet Count 220 X10*3/uL (160-400); Red Blood Count 4.14 X10*6/uL (4.20-5.50); White Blood Count 5.8 X10*3/uL (4.8-10.8)
[2024-12-20 10:33] LABS: Hemoglobin A1C 123.4814 umol/L; Total Hemoglobin (HGBA1C) 3403.6230 umol/L
[2024-12-20 11:14] LABS: Alanine Aminotransferase 33 U/L (0-31); Albumin Level 4.5 g/dL (3.5-5.0); Alkaline Phosphatase 63 U/L (39-117); Anion Gap 10 (12-20); Aspartate Amino Transferase 32 U/L (5-31); Blood Urea Nitrogen 10 mg/dL (9-16); Calcium 9.3 mg/dL (8.4-10.2); Carbon Dioxide 31 mmol/L (22-29); Chloride 106 mmol/L (96-108); Cholesterol 183 mg/dL (<200); Estimated Glomerular Filt Rate > 60; HDL Cholesterol 51 mg/dL (>40); Potassium 4.2 mmol/L (3.3-5.1); Sodium 143 mmol/L (135-145); Total Protein 7.0 g/dL (6.5-8.0); Triglycerides 104 mg/dL (<150)
[2024-12-20 11:16] LABS: Free T4 (Free Thyroxine) 0.74 ng/dL (0.71-1.85); Thyroid Stimulating Hormone 1.01 uIU/mL (0.32-4.0)
[2024-12-20 11:26] LABS: Folate 16.1 ng/mL (> or = 4.0); Vitamin B12 360 pg/mL (200-900)
== END 2024-12-20 08:57 | disposition home or self-care (01) ==
LOC: HO.HMGCLDS 08:56
PROVIDERS: PCP Internal Medicine; Visit Provider Internal Medicine
DX: E53.8 Deficiency of other specified B group vitamins (principal); R73.01 Impaired fasting glucose; E03.9 Hypothyroidism, unspecified; E78.00 Pure hypercholesterolemia, unspecified; E55.9 Vitamin D deficiency, unspecified; D64.9 Anemia, unspecified
CPT/HCPCS: 36415; 80053; 80061; 82306; 82607; 82746; 83036; 84439; 84443; 85025

== ENCOUNTER 2024-12-22 09:49 | Outpatient (AMB) | payer OTHER, SELFPAY ==
--- NOTE | 2024-12-22 10:08 | MHC.PC.OV ---
Vital Signs 12/22/24 10:09 Height 5 ft 2 in Weight 138 lb 8 oz BMI 25.3 BP 126/80 Blood Pressure Location Lt brachial Position Sitting Pulse 76 Pulse Source Pulse Oximeter Pulse Oximetry (%) 93 Oxygen Delivery Method Room Air Intake Visit Reasons: 4 Months Antenna Installer Required: No Accompanied by: Self / Same As Patient Allergies No Known Allergies Allergy (Verified 12/22/24 10:48) Medication List - Last Reconciled 12/22/24 by Anurag Ren MD bupropion HCl XL 300 mg PO QAM 90 days cholecalciferol (vitamin D3) 50 mcg PO DAILY 90 days diphenhydramine HCl (Benadryl Allergy) 1 to 2 tablets up to 3 to 4 times a day as needed folic acid 1 mg PO DAILY haloperidol 1 mg PO BID PRN levothyroxine 75 mcg PO DAILY 90 days lisinopril 20 mg PO DAILY 90 days omeprazole 20 mg PO DAILY sertraline 50 mg PO DAILY simvastatin 40 mg PO BEDTIME 90 days Tobacco use date assessed: 12/22/24 Fall risk assessment: No Falls in past year Last assessed Fall Risk: 12/22/24 Dental Screening Dental Screen Date: 12/22/24 Did you have a dental visit in the last 12 months?: No Did you have a dental problem in the last 6 months where you did not have access to dental care?: No Was dental information given to patient?: No HPI 4 Months HPI Details Patient comes in today for her follow-up visit States that she feels okay Her family states that she still has occasional episodes of slight confusion but these have not been occurring as often as they did before Patient denies any headaches or dizziness Denies any chest pains, no shortness of breath No nausea/vomiting, no abdominal pain No change in bowel habits noted Needs her Simvastatin Rx refilled today She had her follow up labs done a couple of days ago - to discuss her results [facility] Medical History Anxiety Celiac disease Vitamin D deficiency Osteoporosis Allergic rhinitis Pernicious anemia Acquired hypothyroidism Pure hypercholesterolemia Impaired fasting glucose Benign essential hypertension Surgical History History of excision of mass Family History Father No problems noted. Mother No problems noted. Social History Housing: House Alcohol intake: current Alcohol intake frequency: holidays/special occasions only Patient Tobacco Use Status: Current everyday Tobacco user Cigarettes Per Day: 6 e-Cigarette/Vaping Use: Never Used Second Hand Smoke Exposure: Yes service: No Current occupational status: retired Cognitive needs: No Hearing needs: No Vision needs: No Questionnaire PHQ-9 Over the last 2 weeks, how often have you been bothered by any of the following problems? 1. Little interest or pleasure in doing things: not at all 2. Feeling down, depressed, or hopeless: not at all 3. Trouble falling or staying asleep, or sleeping too much: not at all 4. Feeling tired or having little energy: not at all 5. Poor appetite or overeating: not at all 6. Feeling bad about yourself - or that you are a failure or have let yourself or your family down: not at all 7. Trouble concentrating on things, such as reading the newspaper or watching television: not at all 8. Moving or speaking so slowly that other people could have noticed. Or the opposite - being so fidgety or restless that you have been moving around a lot more than usual: not at all 9. Thoughts that you would be better off or of hurting yourself in some way: not at all Total score: 0 Depression Screening Interpretation: Negative Depression Screening Done: Yes 20189 - PHQ-9 Billing: Yes Source: Developed by Drs. Quintin Amato, Alexandra Gusman, Wayne Eng and colleagues, with an educational elisa from [employer]. Thrive Questionnaire Date Thrive assessed: 12/22/24 I am a: Patient What is your living situation today?: I have a steady place to live Within the past 12 months, did the food you bought not last and you didn't have the money to get more?: Never true Within the past 12 months, did you worry whether your food would run out before you got money to buy more?: Never true Do you have trouble paying for medicines?: No Do you have trouble getting transportation to medical appointments?: No Do you have trouble paying your heating and electricity bill?: No Do you have trouble taking care of your child, family member or friend?: No Do you have trouble with day-to-day activities such as bathing, preparing meals, shopping, managing finances, etc.?: No Are you currently unemployed and looking for a job?: No Are you interested in more education?: No Please select the resources that you would like help with: None Currently or been in a relationship where the following occur: No concerns reported THRIVE Score: 0 AUDIT C Alcohol Use Questionnaire (AUDIT-C) 1. How often do you have a drink containing alcohol?: Never 3. How often do you have six or more drinks on one occasion?: Never Total Score: 0 Score Reviewed/Action Taken: Yes JOHNIE-7 AMB Questionnaire JOHNIE-7 Date JOHNIE - 7 assessed: 08/10/24 Source: Developed by Drs. Quintin Amato, Alexandra Gusman, Wayne Eng and colleagues, with an educational elisa from [employer]. Review of Systems Const Denies chills, Denies difficulty sleeping (Rx helping), Reports fatigue, Denies fever(s) and Denies headache(s) ENT Denies dysphagia, Denies dizziness, Denies otalgia, Denies headache(s), Denies neck pain, Denies odynophagia and Denies sore throat Card Denies chest pain, Denies palpitations and Denies dyspnea Resp Denies chest congestion, Denies cough and Denies dyspnea GI Denies abdominal pain, Denies constipation, Denies dysphagia, Denies heartburn, Denies diarrhea, Denies nausea, Denies odynophagia and Denies vomiting Denies difficulty voiding, Denies nocturia, Denies dysuria and Denies urinary urgency Musc Details: (+) on and off episodes of shaking all over, including in her legs, making it difficult for her to walk - notes that these have been occurring less often and less intensely Denies back pain and Denies neck pain Skin/Breast Denies rash Neuro Reports as per HPI, Reports behavioral changes, Denies dizziness, Denies headache(s) and Reports memory loss Psych Reports as per HPI, Reports anxiety, Reports behavioral changes and Reports memory loss Endo Reports fatigue and Denies palpitations Physical exam (Primary Care) Vital Signs: Last Vital Signs Pulse 76 12/22/24 10:09 BP 126/80 12/22/24 10:09 Pulse Ox 93 12/22/24 10:09 Oxygen Delivery Method Room Air 12/22/24 10:09 BMI result Body Mass Index 25.3 Tobacco/Smoking Status: Tobacco use Status Tobacco use date assessed 12/22/24 12/22/24 10:16 Patient Tobacco Use Status Current everyday Tobacco 12/22/24 10:16 e-Cigarette/Vaping Use Never Used 12/22/24 10:16 Depression Screening Interpretation: Negative Thrive Assessment: Date of Thrive Assessment Date Thrive assessed 12/22/24 12/22/24 10:16 Currently or been in a relationship where the following occur: No concerns reported Const General: no acute distress and alert HENMT Ears: TM's normal bilaterally and EAC's normal Throat: Yes posterior oropharynx normal and Yes tonsils normal (no TP congestion) Neck Neck: Yes supple and No lymphadenopathy Thyroid: Thyroid normal Resp Auscultation: clear to auscultation bilaterally, no rales and no wheezes Cardio Rate: regular rate Rhythm: regular rhythm Heart sounds: no murmurs GI Palpation (GI): Soft to palpation and nontender Auscultation: normal bowel sounds General: Yes no CVA tenderness Back/Spine/Pelvis Back: no CVA tenderness Thoracic/Lumbar Spine: No lumbar spinal tenderness Skin Rashes: no rashes Extrem General: Yes no clubbing, cyanosis or edema Results Reviewed Results Reviewed: Laboratory Tests 12/20/24 09:00 WBC 5.8 Hgb 13.0 Hct 39.1 Plt Count 220 Sodium 143 Potassium 4.2 Creatinine 0.82 Estimated GFR > 60 Fasting Glucose 95 Hemoglobin A1c % 5.5 Calcium 9.3 AST 32 H ALT 33 H Triglycerides 104 Cholesterol 183 LDL Cholesterol, Calc 112 H HDL Cholesterol 51 Vitamin B12 360 25-OH Vitamin D Total 43.3 TSH 1.01 Free T4 0.74 Coding Level of Care Code Est Pt Level 4 (08764) Diagnoses Pure hypercholesterolemia E78.00 Benign essential hypertension I10 Acquired hypothyroidism E03.9 Impaired fasting glucose R73.01 Celiac disease K90.0 Pernicious anemia D51.0 Vitamin D deficiency E55.9 Age-related osteoporosis without current pathological fracture M81.0 Osteoporosis type: age-related Presence of current pathological fracture: without current pathological fracture Allergic rhinitis, unspecified seasonality, unspecified trigger J30.9 Allergic rhinitis seasonality: unspecified Allergic rhinitis trigger: unspecified Anxiety F41.9 Additional Codes PHQ-9 - 39782 - PHQ-9 Billing: Yes ([id number]) Assessment & Plan Assessment & Plan (1) Pure hypercholesterolemia: Code(s): E78.00 - Pure hypercholesterolemia, unspecified Category: Medical Plan: Results of her labs done a couple of days ago reviewed and discussed with patient and her Reinforced low cholesterol diet Continue Simvastatin 40 mg QD - Rx refilled Will recheck her labs and fasting lipids in 4 months for follow up (2) Benign essential hypertension: Code(s): I10 - Essential (primary) hypertension Category: Medical Plan: Reinforced low sodium diet - goal is systolic BP of at least 130 to 140 mm or less Continue Lisinopril 20 mg QD (3) Acquired hypothyroidism: Comment: (+) Shiv's Code(s): E03.9 - Hypothyroidism, unspecified Category: Medical Plan: For unclear reasons, her TFTs were not done when patient went for her labs last week Continue Levothyroxine 75 mcg QD Will recheck her TFTs in 4 months for follow up (4) Impaired fasting glucose: Code(s): R73.01 - Impaired fasting glucose Category: Medical Plan: Her HgbA1c was normal at 5.5%, 5.2% and 5.3% when previously checked FBS was slightly elevated at 112 mg/dl on her labs done last week Reinforced low calorie/low carb diet; exercise as tolerated (5) Celiac disease: Code(s): K90.0 - Celiac disease Category: Medical Plan: Her celiac disease testing done last year came back positive, as evidence by an elevated tissue transglutaminase IgA level of 30.4 U/ml Patient states that her GI symptoms and bowel movements are all back to normal as soon as she started herself on a gluten-free diet, and she is advised to continue to stay on this diet (6) Pernicious anemia: Code(s): D51.0 - Vitamin B12 deficiency anemia due to intrinsic factor deficiency Category: Medical Plan: Her B12 level was normal when last checked a few months ago Continue Vitamin B12 tablets 1000 mcg QD (7) Vitamin D deficiency: Code(s): E55.9 - Vitamin D deficiency, unspecified Category: Medical Plan: Continue Vitamin D3 2000 units QD (8) Osteoporosis: Code(s): M81.0 - Age-related osteoporosis without current pathological fracture Category: Medical Qualifiers: Osteoporosis type: age-related Presence of current pathological fracture: without current pathological fracture Qualified Code(s): M81.0 - Age-related osteoporosis without current pathological fracture Plan: Repeat BMD done on 03/22/2021 showed a slight decreased from previous BMD in the lumbar spine; BMD in the femur remains unchanged from previous Patient is again encouraged on regular exercise and physical activity and continue daily Calcium and Vitamin D supplements Fall precautions reinforced Will continue to monitor her BMD every 2 to 3 years - she will be due for repeat BMD at her next appointment later this fall (9) Allergic rhinitis: Code(s): J30.9 - Allergic rhinitis, unspecified Category: Medical Qualifiers: Allergic rhinitis seasonality: unspecified Allergic rhinitis trigger: unspecified Qualified Code(s): J30.9 - Allergic rhinitis, unspecified Plan: Continue Loratadine 10 mg QD PRN (10) Anxiety: Code(s): F41.9 - Anxiety disorder, unspecified Category: Medical Plan: All of patient's recent work ups over the past few months have been normal, and majority of her symptoms of recurrent stiffness and inability to move are likely due to (severe) anxiety Continue Wellbutrin XL 300 mg QD and continue her on Benadryl 25 mg 1 to 2 tablets up to 4 times a day as needed She was also started on Sertraline [address] Enriquez and this appears to be helping as patient states that her episodes have been occurring much less frequently and they are now less intense Her Clonazepam has been discontinued by Dr. Enriquez Follow up with Dr. Enriquez as scheduled Plan Follow-up in 4 months Orders: Orders Thyroid Stimulating Hormone 4 Months E03.9 - Hypothyroidism, unspecified Complete Blood Count Auto Diff 4 Months D64.9 - Anemia, unspecified UA CC w/rflx Micro + Cult 4 Months R30.0 - Dysuria Lipid Panel 4 Months E78.00 - Pure hypercholesterolemia, unspecified Comprehensive [place]. Panel Fast 4 Months E78.00 - Pure hypercholesterolemia, unspecified Free T4 (Free Thyroxine) 4 Months E03.9 - Hypothyroidism, unspecified Vitamin D 25-OH Total 4 Months E55.9 - Vitamin D deficiency, unspecified Medications: Refilled simvastatin 40 mg PO BEDTIME 90 tabs 3RF 90 days E78.00 - Pure hypercholesterolemia, unspecified
[2024-12-22 10:09] VITALS: BP 126/80; PULSE 76; O2SAT 93; BMI 25.3
== END 2024-12-22 11:01 | disposition home or self-care (01) ==
LOC: HO.HMCH 09:50
PROVIDERS: PCP Internal Medicine; Visit Provider Internal Medicine
DX: E78.00 Pure hypercholesterolemia, unspecified (principal); I10 Essential (primary) hypertension; E03.9 Hypothyroidism, unspecified; R73.01 Impaired fasting glucose; K90.0 Celiac disease; D51.0 Vitamin B12 deficiency anemia due to intrinsic factor deficiency; E55.9 Vitamin D deficiency, unspecified; M81.0 Age-related osteoporosis without current pathological fracture; J30.9 Allergic rhinitis, unspecified; F41.9 Anxiety disorder, unspecified

== ENCOUNTER → 2024-12-22 09:49 | Outpatient (BNVA) | payer OTHER, SELFPAY | PROVIDERS: PCP Internal Medicine; Visit Provider Internal Medicine | DX: E78.00 Pure hypercholesterolemia, unspecified (principal); I10 Essential (primary) hypertension; E03.9 Hypothyroidism, unspecified; R73.01 Impaired fasting glucose; K90.0 Celiac disease; D51.0 Vitamin B12 deficiency anemia due to intrinsic factor deficiency; E55.9 Vitamin D deficiency, unspecified; M81.0 Age-related osteoporosis without current pathological fracture; J30.9 Allergic rhinitis, unspecified; F41.9 Anxiety disorder, unspecified; Z79.899 Other long term (current) drug therapy; Z13.31 Encounter for screening for depression | CPT/HCPCS: 96127; 99212 ==